=== PATIENT | male | born 1970 | race Caucasian/White ===

== ENCOUNTER 2017-05-01 08:47 | Emergency (ER) | payer SELFPAY ==
[~2017-05-01] VITALS: Ht 188 cm; Wt 77.1 kg
[~2017-05-01 08:47] MED LIST: ENAL2.5T PO; HYDR-1231 PO; IBUP800T26 PO; LISI10TA2 PO; LISI1TAB8 PO; NO HOME MEDS; OMEP20CA12 PO; ONDA-42 SL; SULF-222 PO
--- OUTSIDE RECORDS SUMMARY | 2017-05-01 08:52 | XMS REPORT ---
Author LI Self [facility] [place] eClinicalWorks Address Unknown Phone Unavailable Care Team Providers Care Distribution Clerk Name Role Phone LI ASTORGA CP Unavailable Allergies, Adverse Reactions, Alerts Substance Reaction Event Type N.K.D.A. Info Not Available Non Drug Allergy Problems Problem Type Condition Code Onset Dates Condition Status Problem DTAP TEST V06.1 Active Problem Onychia and paronychia of finger 681.02 Active Problem Unspecified essential hypertension 401.9 Active Problem Malaise R53.81 Active Problem Nocturia R35.1 Active Problem Hypertension I10 Active Problem Blood in stool 578.1 Active Problem Insomnia, unspecified 780.52 Active Problem Back pain M54.9 Active Problem Environmental allergies V15.09 Active Assessment Back pain M54.9 Active Assessment Nocturia R35.1 Active Problem Unspecified tinnitus 388.30 Active Problem Essential hypertension, benign 401.1 Active Assessment Malaise R53.81 Active Problem Unspecified urinary incontinence 788.30 Active Assessment Hypertension I10 Active Problem Acute upper respiratory infections of unspecified site 465.9 Active Medications Medication Code System Code Instructions Start Date End Date Status Dosage Ibuprofen [facility] [address]-22 800 MG Orally Three times a day as needed Oct 15, 2015 Nov 14, 2015 1 tablet Lisinopril-Hydrochlorothiazide [facility] [address]-37 20-12.5 MG Orally Once a day Oct 31, 2014 1 tablet Flomax [facility] [address]-02 0.4 MG Orally Once a day Oct 15, 2015 Nov 14, 2015 1 capsule 30 minutes after the same meal each day Tizanidine HCl [facility] [address]-45 4 MG Orally at hs prn back pspasm Oct 15, 2015 1 tablet as needed Procedures Procedure Coding System Code Date VENIPUNCT, ROUTINE* CPT-4 01400 Oct 15, 2015 COMPREHEN METABOLIC PANEL CPT-4 72755 Oct 15, 2015 LIPID PANEL CPT-4 02420 Oct 15, 2015 COMPLETE CBC W/AUTO DIFF WBC CPT-4 60425 Oct 15, 2015 THER/PROPH/DIAG INJ, SC/IM CPT-4 13225 Oct 15, 2015 DEPO MEDROL 40 MG/ML CPT-4 J1030 Oct 15, 2015 DEXAMETHASONE 4MG/ML (PER 1 MG) CPT-4 J1100 Oct 15, 2015 X-RAY EXAM OF LOWER SPINE CPT-4 32162 Oct 15, 2015 ASSAY OF PSA, TOTAL CPT-4 38515 Oct 15, 2015 Office Visit, Est Pt., Level 4 CPT-4 61059 Oct 15, 2015 URINALYSIS, AUTO, W/O SCOPE CPT-4 70574 Oct 15, 2015 Vital Signs Date/Time: Oct 15, 2015 Temperature 98.0 F Weight 178.3 lbs Height 74 in BMI 22.89 Index Blood Pressure Diastolic 80 mmHg Blood Pressure Systolic 124 mmHg Cardiac Monitoring Heart Rate 84 bpm Results Name Result Date Reference Range Unit Abnormality Flag CBC ----Lymphs 30 80865194 % ----Neutrophils 59 30887162 % ----Baso (Absolute) 0.0 59731886 0.0-0.2 x10E3/uL ----Hemoglobin 14.1 67885501 12.6-17.7 g/dL ----Eos (Absolute) 0.0 87369574 0.0-0.4 x10E3/uL ----Hematocrit 41.9 24585275 37.5-51.0 % ----Monocytes(Absolute) 0.4 41044404 0.1-0.9 x10E3/uL ----MCV 89 93682729 79-97 fL ----Lymphs (Absolute) 1.2 86936148 0.7-3.1 x10E3/uL ----MCH 29.8 92412307 26.6-33.0 pg ----Neutrophils (Absolute) 2.4 26278337 1.4-7.0 x10E3/uL ----MCHC 33.7 53451088 31.5-35.7 g/dL ----Immature Granulocytes 0 72610937 % ----Basos 1 71530348 % ----RDW 13.9 51370776 12.3-15.4 % ----Immature Grans (Abs) 0.0 95330036 0.0-0.1 x10E3/uL ----WBC 4.0 42694425 3.4-10.8 x10E3/uL ----Platelets 241 86397467 150-379 x10E3/uL ----Eos 1 66682810 % ----RBC 4.73 17482079 4.14-5.80 x10E6/uL ----Monocytes 9 26541580 % PSA ----Prostate Specific Ag, Serum 0.5 88987992 0.0-4.0 ng/mL UA LONG DIP (IN HOUSE) ----SCOOBY negative 20151015 ----NIT negative 20151015 ----SG 1.010 20151015 ----KET negative 20151015 ----BRANDON negative 20151015 ----GLU negative 20151015 ----Odor no 20151015 ----pH 7.0 20151015 ----BLO negative 20151015 ----URO 0.2 20151015 ----Protein negative 20151015 ----Lot # [id number] ----Exp date [id number] ----Clarity clear 20151015 ----Color yellow 20151015 ROUTINE VENIPUNCTURE LIPID PANEL ----LDL Cholesterol Calc 121 01259464 0-99 mg/dL H ----VLDL Cholesterol Avinash 15 81446432 5-40 mg/dL ----HDL Cholesterol 56 46926419 >39 mg/dL ----Triglycerides 74 30596623 0-149 mg/dL ----Cholesterol, Total 192 96696254 100-199 mg/dL CMP ----Creatinine, Serum 0.79 24811280 0.76-1.27 mg/dL ----BUN 10 25093871 6-24 mg/dL ----eGFR If Africn Am 124 43934659 >59 mL/min/1.73 ----eGFR If NonAfricn Am 108 27964084 >59 mL/min/1.73 ----Sodium, Serum 136 24638848 134-144 mmol/L ----BUN/Creatinine Ratio 13 20151015 9-20 ----Chloride, Serum 96 24087980 97-108 mmol/L L ----Potassium, Serum 4.3 20151015 3.5-5.2 mmol/L ----Carbon Dioxide, Total 30 20151015 18-29 mmol/L H ----Protein, Total, Serum 6.4 20151015 6.0-8.5 g/dL ----Calcium, Serum 9.1 20151015 8.7-10.2 mg/dL ----Globulin, Total 2.0 20151015 1.5-4.5 g/dL ----Albumin, Serum 4.4 20151015 3.5-5.5 g/dL ----Bilirubin, Total 0.3 20151015 0.0-1.2 mg/dL ----Glucose, Serum 85 20151015 65-99 mg/dL ----A/G Ratio 2.2 20151015 1.1-2.5 ----ALT (SGPT) 22 20151015 0-44 IU/L ----Alkaline Phosphatase, S 60 20151015 39-117 IU/L ----AST (SGOT) 27 20151015 0-40 IU/L Summary Purpose eClinicalWorks Submission
--- OUTSIDE RECORDS SUMMARY | 2017-05-01 08:52 | XMS REPORT | Continuity of Care Document ---
Author Author [facility] Organization [facility] Address Unknown Phone Unavailable Allergies Active Description Code Type Severity Reaction Onset Reported/Identified Relationship to Patient Clinical Status Yes No Known Drug Allergies [id number] Drug Allergy Unknown N/ A 03/28/2013 Medications Problems Date Dx Coded Attending Type Code Diagnosis Diagnosed By 05/17/2008 719.46 PAIN IN JOINT INVOLVING LOWER LEG 05/17/2008 ANIKET LUCIO DO 719.46 PAIN IN JOINT INVOLVING LOWER LEG 05/17/2008 ANIKET LUCIO DO 719.46 PAIN IN JOINT INVOLVING LOWER LEG 05/17/2008 719.46 PAIN IN JOINT INVOLVING LOWER LEG 05/17/2008 PARVEEN SMITH MD 719.46 PAIN IN JOINT INVOLVING LOWER LEG 05/17/2008 MEGAN MAYES APRN R 719.46 PAIN IN JOINT INVOLVING LOWER LEG 05/17/2008 MEGAN MAYES APRN R 719.46 PAIN IN JOINT INVOLVING LOWER LEG 05/17/2008 MEGAN MAYES APRN R 719.46 PAIN IN JOINT INVOLVING LOWER LEG 05/24/2008 719.41 PAIN IN JOINT INVOLVING SHOULDER REGION 05/24/2008 ANIKET LUCIO DO 719.41 PAIN IN JOINT INVOLVING SHOULDER REGION 05/24/2008 ANIKET LUCIO DO 719.41 PAIN IN JOINT INVOLVING SHOULDER REGION 05/24/2008 719.41 PAIN IN JOINT INVOLVING SHOULDER REGION 05/24/2008 PARVEEN SMITH MD 719.41 PAIN IN JOINT INVOLVING SHOULDER REGION 05/24/2008 MEGAN MAYES APRN R 719.41 PAIN IN JOINT INVOLVING SHOULDER REGION 05/24/2008 MEGAN MAYES APRN R 719.41 PAIN IN JOINT INVOLVING SHOULDER REGION 05/24/2008 MEGAN MAYES APRN R 719.41 PAIN IN JOINT INVOLVING SHOULDER REGION 01/09/2010 034.0 PHARYNGITIS STREPTOCOCCUS, GROUP A: BETA HEMOLYTIC 01/09/2010 305.1 NICOTINE DEPENDENCE 01/09/2010 ANIKET LUCIO DO 034.0 PHARYNGITIS STREPTOCOCCUS, GROUP A: BETA HEMOLYTIC 01/09/2010 ANIKET LUCIO DO K 305.1 NICOTINE DEPENDENCE 01/09/2010 ANIKET LUCIO DO K 034.0 PHARYNGITIS STREPTOCOCCUS, GROUP A: BETA HEMOLYTIC 01/09/2010 ANIKET LUCIO DO K 305.1 NICOTINE DEPENDENCE 01/09/2010 034.0 PHARYNGITIS STREPTOCOCCUS, GROUP A: BETA HEMOLYTIC 01/09/2010 305.1 NICOTINE DEPENDENCE 01/09/2010 PARVEEN SMITH MD 034.0 PHARYNGITIS STREPTOCOCCUS, GROUP A: BETA HEMOLYTIC 01/09/2010 PARVEEN SMITH MD N 305.1 NICOTINE DEPENDENCE 01/09/2010 SUGEY PEOPLESOFT HCM DEVELOPER, MEGAN R 034.0 PHARYNGITIS STREPTOCOCCUS, GROUP A: BETA HEMOLYTIC 01/09/2010 SUGEY [employer] HCM DEVELOPER, MEGAN R 305.1 NICOTINE DEPENDENCE 01/09/2010 SUGEY [employer] HCM DEVELOPER, MEGAN R 034.0 PHARYNGITIS STREPTOCOCCUS, GROUP A: BETA HEMOLYTIC 01/09/2010 SUGEY [employer] HCM DEVELOPER, MEGAN R 305.1 NICOTINE DEPENDENCE 01/09/2010 SUGEY [employer] HCM DEVELOPER, MEGAN R 034.0 PHARYNGITIS STREPTOCOCCUS, GROUP A: BETA HEMOLYTIC 01/09/2010 SUGEY [employer] HCM DEVELOPER, MEGAN R 305.1 NICOTINE DEPENDENCE 01/21/2011 V69.2 sexually active high-risk 01/21/2011 ANIKET LUCIO DO V69.2 sexually active high-risk 01/21/2011 ANIKET LUCIO DO V69.2 sexually active high-risk 01/21/2011 V69.2 sexually active high-risk 01/21/2011 PARVEEN SMITH MD V69.2 sexually active high-risk 01/21/2011 [employer]Y [employer] HCM DEVELOPER, MEGAN R V69.2 sexually active high-risk 01/21/2011 SUGEY [employer] HCM DEVELOPER, MEGAN R V69.2 sexually active high-risk 01/21/2011 SUGEY SANTANA, MEGAN R V69.2 sexually active high-risk 04/29/2011 Ot 305.02 04/29/2011 Ot 305.1 04/29/2011 Ot 425.4 04/29/2011 Ot 786.59 04/29/2011 Ot V17.49 05/04/2011 733.6 TIETZE'S DISEASE 05/04/2011 LUCIO DO, ANIKET K 733.6 TIETZE'S DISEASE 05/04/2011 ANIKET LUCIO DO K 733.6 TIETZE'S DISEASE 05/04/2011 733.6 TIETZE'S DISEASE 05/04/2011 PARVEEN SMITH MD 733.6 TIETZE'S DISEASE 05/04/2011 SUGEY SANTANA, MEGAN R 733.6 TIETZE'S DISEASE 05/04/2011 SUGEY SANTANA, MEGAN R 733.6 TIETZE'S DISEASE 05/04/2011 SUGEY SANTANA, MEGAN R 733.6 TIETZE'S DISEASE 06/03/2012 465.9 UPPER RESPIRATORY INFECTION 06/03/2012 ANIKET LUCIO DO K 465.9 UPPER RESPIRATORY INFECTION 06/03/2012 ANIKET LUCIO DO K 465.9 UPPER RESPIRATORY INFECTION 06/03/2012 465.9 UPPER RESPIRATORY INFECTION 06/03/2012 SARAH GIBBONS, PARVEEN N 465.9 UPPER RESPIRATORY INFECTION 06/03/2012 SUGEY SANTANA, MEGAN R 465.9 UPPER RESPIRATORY INFECTION 06/03/2012 SUGEY SANTANA, MEGAN R 465.9 UPPER RESPIRATORY INFECTION 06/03/2012 SUGEY SANTANA, MEGAN R 465.9 UPPER RESPIRATORY INFECTION 11/09/2012 788.30 INCONTINENCE/ENURESIS NOS 11/09/2012 ANIKET LUCIO DO K 788.30 INCONTINENCE/ENURESIS NOS 11/09/2012 ANIKET LUCIO DO K 788.30 INCONTINENCE/ENURESIS NOS 11/09/2012 788.30 INCONTINENCE/ENURESIS NOS 11/09/2012 PARVEEN SMITH MD 788.30 INCONTINENCE/ENURESIS NOS 11/09/2012 CONCEPCIÓN MAYES APRNINA R 788.30 INCONTINENCE/ENURESIS NOS 11/09/2012 CONCEPCIÓN MAYES APRNINA R 788.30 INCONTINENCE/ENURESIS NOS 11/09/2012 MEGAN MAYES APRN R 788.30 INCONTINENCE/ENURESIS NOS 11/21/2012 ANIKET LUCIO DO 578.1 HEMATOCHEZIA 11/21/2012 ANIKET LUCIO DO 578.1 HEMATOCHEZIA 11/21/2012 578.1 HEMATOCHEZIA 11/21/2012 PARVEEN SMITH MD 578.1 HEMATOCHEZIA 11/21/2012 SUGEY [employer] HCM DEVELOPER, MEGAN R 578.1 HEMATOCHEZIA 11/21/2012 SUGEY [employer] HCM DEVELOPER, MEGAN R 578.1 HEMATOCHEZIA 11/21/2012 SUGEY [employer] HCM DEVELOPER, MEGAN R 578.1 HEMATOCHEZIA 12/14/2012 Ot 455.0 12/14/2012 Ot 455.3 12/14/2012 Ot V16.0 12/29/2012 V06.1 TDAP DX 12/29/2012 SARAH GIBBONS, PARVEEN N V06.1 TDAP DX 12/29/2012 SUGEY [employer] HCM DEVELOPER, MEGAN R V06.1 TDAP DX 12/29/2012 SUGEY [employer] HCM DEVELOPER, MEGAN R V06.1 TDAP DX 12/29/2012 SUGEY [employer] HCM DEVELOPER, MEGAN R V06.1 TDAP DX 03/29/2013 DAY GIBBONS, GEOVANNY S Ot 305.1 03/29/2013 DAY GIBBONS, GEOVANNY S Ot 780.97 03/29/2013 DAY GIBBONS, GEOVANNY S Ot 786.01 03/29/2013 DAY GIBBONS, GEOVANNY S Ot 994.8 03/29/2013 DAY GIBBONS, GEOVANNY S Ot E000.0 03/29/2013 DAY GIBBONS, GEOVANNY S Ot E016.9 03/29/2013 DAY GIBBONS, GEOVANNY S Ot E849.3 03/29/2013 DAY GIBBONS, GEOVANNY S Ot E925.8 08/24/2013 SARAH GIBBONS, PARVEEN N 681.02 ONYCHIA AND PARONYCHIA OF FINGER 08/24/2013 SUGEY SANTANA, MEGAN R 681.02 ONYCHIA AND PARONYCHIA OF FINGER 08/24/2013 SUGEY SANTANA, MEGAN R 681.02 ONYCHIA AND PARONYCHIA OF FINGER 08/24/2013 SUGEY PEOPLESO[employer] HCM DEVELOPER, MEGAN R 681.02 ONYCHIA AND PARONYCHIA OF FINGER 06/19/2014 MICHAEL GIBBONS, TRINIDAD Moreno Ot 682.9 06/19/2014 MICHAEL GIBBONS, TRINIDAD Moreno Ot 787.02 06/19/2014 MICHAEL GIBBONS, TRINIDAD Moreno Ot 789.00 10/01/2014 Ot 721.3 10/01/2014 Ot 787.60 10/01/2014 Ot V72.84 10/02/2014 MYLES GIBBONS FACC, ALI FACP CCDS Ot 305.00 10/02/2014 MYLES GIBBONS FACC, ALI FACP CCDS Ot 305.1 10/02/2014 MYLES GIBBONS FACC, ALI FACP CCDS Ot 401.9 10/02/2014 MYLES GIBBONS FACC, ALI FACP CCDS Ot 414.01 10/02/2014 MYLES GIBBONS FACC, ALI FACP CCDS Ot 427.1 10/02/2014 MYLES GIBBONS FACC, ALI FACP CCDS Ot 427.89 10/02/2014 MYLES GIBBONS FACC, ALI FACP CCDS Ot V17.49 10/02/2014 Ot 721.3 10/02/2014 Ot 787.60 10/02/2014 Ot V72.84 10/02/2014 MYLES GIBBONS FACC, ALI FACP CCDS Ot 305.00 10/02/2014 MYLES GIBBONS FACC, ALI FACP CCDS Ot 305.1 10/02/2014 MYLES GIBBONS FACC, ALI FACP CCDS Ot 401.9 10/02/2014 MYLES GIBBONS FACC, ALI FACP CCDS Ot 414.01 10/02/2014 MYLES GIBBONS FACC, ALI FACP CCDS Ot 427.1 10/02/2014 MYLES GIBBONS FACC, ALI FACP CCDS Ot 427.89 10/02/2014 MYLES GIBBONS FACC, ALI FACP CCDS Ot V17.49 10/02/2014 MYLES GIBBONS FACC, ALI FACP CCDS Ot 305.00 10/02/2014 MYLES GIBBONS FACC, ALI FACP CCDS Ot 305.1 10/02/2014 MYLES GIBBONS FACC, ALI FACP CCDS Ot 401.9 10/02/2014 MYLES GIBBONS FACC, ALI FACP CCDS Ot 414.01 10/02/2014 MYLES GIBBONS FACC, ALI FACP CCDS Ot 427.1 10/02/2014 MYLES GIBBONS FACC, ALI FACP CCDS Ot 427.89 10/02/2014 MYLES GIBBONS FACC, ALI FACP CCDS Ot V17.49 10/02/2014 MYLES GIBBONS FACC, ALI FACP CCDS Ot 305.00 10/02/2014 MYLES GIBBONS FACC, ALI FACP CCDS Ot 305.1 10/02/2014 MYLES GIBBONS FACC, ALI FACP CCDS Ot 401.9 10/02/2014 MYLES GIBBONS FACC, ALI FACP CCDS Ot 414.01 10/02/2014 MYLES GIBBONS FACC, ALI FACP CCDS Ot 427.1 10/02/2014 MYLES GIBBONS FACC, ALI FACP CCDS Ot 427.89 10/02/2014 MYLES GIBBONS FACC, ALI FACP CCDS Ot V17.49 10/02/2014 MYLES GIBBONS FACC, ALI FACP CCDS Ot 305.00 10/02/2014 MYLES GIBBONS FACC, ALI FACP CCDS Ot 305.1 10/02/2014 MYLES GIBBONS FACC, ALI FACP CCDS Ot 401.9 10/02/2014 MYLES GIBBONS FACC, ALI FACP CCDS Ot 414.01 10/02/2014 MYLES GIBBONS FACC, ALI FACP CCDS Ot 427.1 10/02/2014 MYLES GIBBONS FACC, ALI FACP CCDS Ot 427.89 10/02/2014 MYLES GIBBONS FACC, ALI FACP CCDS Ot E849.7 10/02/2014 MYLES GIBBONS FACC, ALI FACP CCDS Ot E935.2 10/02/2014 MYLES GIBBONS FACC, ALI FACP CCDS Ot E941.2 10/02/2014 MYLES GIBBONS FAC, ALI FACP CCDS Ot V04.81 10/02/2014 MYLES GIBBONS FAC, ALI FACP CCDS Ot V17.49 10/08/2014 SHANIA MCWILLIAMS DO Ot 998.12 10/16/2014 MEGAN MAYES APRN R 388.30 TINNITUS UNSPECIFIED 10/16/2014 MEGAN MAYES APRN R 401.1 BENIGN ESSENTIAL HYPERTENSION 10/16/2014 CONCEPCIÓN MAYES APRNINA R 388.30 TINNITUS UNSPECIFIED 10/16/2014 CONCEPCIÓN MAYES APRNINA R 401.1 BENIGN ESSENTIAL HYPERTENSION 10/16/2014 MEGAN MAYES APRN R 388.30 TINNITUS UNSPECIFIED 10/16/2014 MEGAN MAYES APRN R 401.1 BENIGN ESSENTIAL HYPERTENSION 10/24/2014 MEGAN MAYES APRN R 780.52 INSOMNIA UNSPECIFIED 10/24/2014 CONCEPCIÓN MAYES APRNINA R 780.52 INSOMNIA UNSPECIFIED 10/31/2014 MEGAN MAYES APRN R 401.9 UNSPECIFIED ESSENTIAL HYPERTENSION 11/14/2014 Ot 721.3 11/14/2014 Ot 787.60 11/14/2014 Ot V72.84 11/14/2014 BECCA BUENO MD, FACC, FACP CCDS Ot 401.9 11/14/2014 Ot 721.3 11/14/2014 Ot 787.60 11/27/2014 Ot 721.3 11/27/2014 Ot 787.60 11/27/2014 BECCA BUENO MD, FACC, FACP CCDS Ot 401.9 Procedures Code [place] [address] HEMOCCULT 2012 75319 MRI SPINE (LUMBAR) W & W/O CONTRAST 11/09/2012 Alfredo Vergara 11/09/2012 57221 ROUTINE VENIPUNCTURE 12/15/2012 22475 CBC 12/15/2012 95105 CMP 12/15/2012 46138 VIT B 12 2012 00880 TSH 12/15/2012 37851 CERUMEN REMOVAL 10/24/2014 Results Encounters ACCT No. Visit Date/Time Discharge Status Pt. Type Provider Facility Loc./Unit Complaint [id number] 10/15/2014 15:02:00 2013 23:59:59 CLS Outpatient BECCA BUENO MD, FACC, FACP CCDS [facility] LAB [id number] 10/08/2014 19:37:00 2013 21:16:00 DIS Emergency SHANIA MCWILLIAMS DO [facility] ER [id number] 10/01/2014 10:39:00 2013 15:18:00 DIS Inpatient BECCA BUENO MD, FACC, FACP CCDS [facility] [id number] 06/19/2014 12:43:00 2013 16:28:00 DIS Emergency TRINIDAD RODRIGUEZ MD [facility] ER [id number] 03/28/2013 14:11:00 2012 11:48:00 DIS Inpatient GEOVANNY BERNSTEIN MD [facility] ICU [id number] 12/14/2012 13:00:00 Document Registration [id number] 12/08/2012 07:43:00 Document Registration [id number] 11/10/2012 09:39:00 Document Registration [id number] 04/28/2011 17:10:00 Document Registration
--- OUTSIDE RECORDS SUMMARY | 2017-05-01 08:52 | XMS REPORT ---
Author LI Self [facility] eClinicalWorks Address Unknown Phone Unavailable Care Team Providers Care Band Saw Operator Cake Cutting Name Role Phone LI ASTORGA CP Unavailable Allergies, Adverse Reactions, Alerts Substance Reaction Event Type N.K.D.A. Info Not Available Non Drug Allergy Problems Problem Type Condition Code Onset Dates Condition Status Problem Unspecified essential hypertension 401.9 Active Problem Insomnia, unspecified 780.52 Active Problem Onychia and paronychia of finger 681.02 Active Problem Hypertension I10 Active Problem Malaise R53.81 Active Problem Incontinence of feces R15.9 Active Problem Environmental allergies V15.09 Active Problem Blood in stool 578.1 Active Problem Nocturia R35.1 Active Problem Back pain M54.9 Active Assessment Malaise R53.81 Active Assessment Back pain M54.9 Active Assessment Incontinence of feces R15.9 Active Assessment Nocturia R35.1 Active Problem Essential hypertension, benign 401.1 Active Problem Unspecified urinary incontinence 788.30 Active Assessment Hypertension I10 Active Problem Acute upper respiratory infections of unspecified site 465.9 Active Problem Unspecified tinnitus 388.30 Active Problem DTAP TEST V06.1 Active Medications Medication Code System Code Instructions Start Date End Date Status Dosage Lisinopril-Hydrochlorothiazide [facility] [address]-69 20-12.5 MG Orally Once a day Oct 31, 2014 1 tablet Ibuprofen [facility] [address]-46 800 MG Orally Three times a day as needed Oct 15, 2015 Nov 14, 2015 1 tablet Tizanidine HCl [facility] [address]-20 4 MG Orally at hs prn back pspasm Oct 15, 2015 1 tablet as needed Benefiber [facility] [address]-90 1 tablet Orally Once a day Oct 28, 2015 as directed Procedures Procedure Coding System Code Date Office Visit, Est Pt., Level 4 CPT-4 77410 Oct 28, 2015 Vital Signs Date/Time: Oct 28, 2015 Temperature 98.9 F Weight 174.2 lbs Height 74 in BMI 22.36 Index Blood Pressure Diastolic 70 mmHg Blood Pressure Systolic 132 mmHg Cardiac Monitoring Heart Rate 88 bpm Results No Known Results Summary Purpose eClinicalWorks Submission
[2017-05-01 09:07] LABS: BASOPHILS % (AUTO) 0 % (0-10); EOSINOPHILS # (AUTO) 0.1 10^3/uL (0.0-0.3); EOSINOPHILS % (AUTO) 1 % (0-10); LYMPHOCYTES % (AUTO) 40 % (12-44); MEAN CORPUSCULAR HEMOGLOBIN 31 PG (25-34); MEAN CORPUSCULAR HGB CONC 35 G/DL (32-36); MEAN CORPUSCULAR VOLUME 87 FL (80-99); MEAN PLATELET VOLUME 10.2 FL (7.4-10.4); MONOCYTES # (AUTO) 0.9 X 10^3 (0.0-1.0); MONOCYTES % (AUTO) 9 % (0-12); NEUTROPHILS # (AUTO) 4.9 X 10^3 (1.8-7.8); NEUTROPHILS % (AUTO) 50 % (42-75); PLATELET COUNT 282 10^3/uL (130-400); RED BLOOD COUNT 5.14 10^6/uL (4.35-5.85); RED CELL DISTRIBUTION WIDTH 13.6 % (10.0-14.5); WHITE BLOOD COUNT 9.9 10^3/uL (4.3-11.0)
--- NOTE | 2017-05-01 09:13 | Diagnostic Imaging Report ---
INDICATION: Chest pain. COMPARISON: 10/01/2014. FINDINGS: Single view of the chest demonstrates clear lungs bilaterally. The heart is normal. No pneumothorax is seen. Osseous structures are age appropriate. IMPRESSION: Negative chest. Dictated by: Dictated on workstation # [id number]
--- NOTE | 2017-05-01 09:16 | ED Cardiac General ---
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 The patient has had similar episodes of chest pain in the past leading to a normal cardiac catheterization in 2013 here at [facility] with Dr. Frost. Patient smokes. The patient drinks. Patient denies drugs. Patient was given nitroglycerin 2 in route with relief of his sharp 10/10 chest pain. Patient denied associated shortness of breath, diaphoresis, nausea or vomiting. Patient's past medical history was essentially noncontributory other than hypertension for which he takes lisinopril. Allergies and Home Medications Allergies Coded Allergies: No Known Drug Allergies (Verified , 03/28/13) Home Medications Lisinopril 10 Mg Tablet, 10 MG PO DAILY, #30 Ref 5 Prescribed by: BECCA FROST on 10/02/14 1430 Lisinopril/Hydrochlorothiazide 1 Tab Tablet, 1 TAB PO DAILY, #15 Prescribed by: SHANIA MCWILLIAMS on 10/08/14 2105 Review of Systems Constitutional: No chills, No fever EENTM: No Blurred Vision Respiratory: Denies Cough, Denies Shortness of Air Cardiovascular: See HPI, Chest Pain Gastrointestinal: Denies Abdominal Pain, Denies Diarrhea, Denies Nausea Genitourinary: Denies Drainage, Denies Frequency, Denies Flank Pain Musculoskeletal: No back pain Skin: No change in color, No rash Psychiatric/Neurological: No Symptoms Reported Endocrine: No Symptoms Reported Hematologic/Lymphatic: No Symptoms Reported Past Ctxeetm-Fmayhe-Ybwerd Hx Immunizations Up To Date Tetanus Booster (TDap): Less than 5yrs Date of Influenza Vaccine: Oct 02, 2014 Seasonal Allergies Seasonal Allergies: No Surgeries HX Surgeries: Yes (RECTAL CYST, HEART CATH) Respiratory Hx Respiratory Disorders: No Cardiovascular Hx Cardiac Disorders: Yes ( HEART CATH NOT TAKING B/P MEDS STOPPED ON OWN) Neurological Hx Neurological Disorders: No Reproductive System Hx Reproductive Disorders: No Sexually Transmitted Disease: No HIV/AIDS: No Genitourinary Hx Genitourinary Disorders: No Gastrointestinal Hx Gastrointestinal Disorders: No Musculoskeletal Hx Musculoskeletal Disorders: Yes (BULGING DISK) Endocrine Hx Endocrine Disorders: No HEENT HX ENT Disorders: No (WEARS READING GLASSES) Hearing Impairment: Denies Cancer Hx Cancer: No Psychosocial Hx Psychiatric Problems: No Integumentary HX Skin/Integumentary Disorder: No Blood Transfusions Hx Blood Disorders: No Adverse Reaction to a Blood Tr: No Reviewed Nursing Assessment Reviewed/Agree w Nursing PMH: Yes Family Medical History Significant Family History: Heart Disease, Cancer Family Medial History: FHx: esophageal cancer FHx: lung cancer Physical Exam Vital Signs Vital Sign - Last 12Hours Capillary Refill : General Appearance: WD/WN, Mild Distress HEENT: Normal ENT Inspection Neck: Normal Inspection Respiratory: Chest Non Tender, Lungs Clear, Normal Breath Sounds Cardiovascular: Regular Rate, Rhythm, No Murmur Gastrointestinal: Normal Bowel Sounds, No Organomegaly, Soft Extremity: Normal Inspection, Normal Range of Motion Neurologic/Psychiatric: Alert, Oriented x3, No Motor/Sensory Deficits, Normal Mood/Affect Skin: Normal Color, Warm/Dry Progress/Results/Core Measures Results/Orders Lab Results Laboratory Tests Test 05/01/17 08:48 Range/Units White Blood Count 9.9 4.3-11.0 10^3/uL Red Blood Count 5.14 4.35-5.85 10^6/uL Hemoglobin 15.7 13.3-17.7 G/DL Hematocrit 45 40-54 % Mean Corpuscular Volume 87 80-99 FL Mean Corpuscular Hemoglobin 31 25-34 PG Mean Corpuscular Hemoglobin Concent 35 32-36 G/DL Red Cell Distribution Width 13.6 10.0-14.5 % Platelet Count 282 130-400 10^3/uL Mean Platelet Volume 10.2 7.4-10.4 FL Neutrophils (%) (Auto) 50 42-75 % Lymphocytes (%) (Auto) 40 12-44 % Monocytes (%) (Auto) 9 0-12 % Eosinophils (%) (Auto) 1 0-10 % Basophils (%) (Auto) 0 0-10 % Neutrophils # (Auto) 4.9 1.8-7.8 X 10^3 Lymphocytes # (Auto) 4.0 1.0-4.0 X 10^3 Monocytes # (Auto) 0.9 0.0-1.0 X 10^3 Eosinophils # (Auto) 0.1 0.0-0.3 10^3/uL Basophils # (Auto) 0.0 0.0-0.1 10^3/uL Prothrombin Time 11.6 L 12.2-14.7 SEC INR Comment 0.9 0.8-1.4 Activated Partial Thromboplast Time 24 24-35 SEC D-Dimer 0.57 H 0.00-0.49 UG/ML Sodium Level 136 135-145 MMOL/L Potassium Level 3.8 3.6-5.0 MMOL/L Chloride Level 98 98-107 MMOL/L Carbon Dioxide Level 24 21-32 MMOL/L Anion Gap 14 5-14 MMOL/L Blood Urea Nitrogen 12 7-18 MG/DL Creatinine 0.89 0.60-1.30 MG/DL Estimat Glomerular Filtration Rate > 60 BUN/Creatinine Ratio 13 Glucose Level 111 H 70-105 MG/DL Calcium Level 9.7 8.5-10.1 MG/DL Magnesium Level 2.2 1.8-2.4 MG/DL Total Bilirubin 0.7 0.1-1.0 MG/DL Aspartate Amino Transf (AST/SGOT) 27 5-34 U/L Alanine Aminotransferase (ALT/SGPT) 22 0-55 U/L Alkaline Phosphatase 83 40-136 U/L Myoglobin 72.9 10.0-92.0 NG/ML Troponin I < 0.30 <0.30 NG/ML B-Type Natriuretic Peptide 27.7 <100.0 PG/ML Total Protein 8.0 6.4-8.2 GM/DL Albumin 4.7 H 3.2-4.5 GM/DL My Orders Orders - MILLY, ANIBAL Tucker MD Cbc With Automated Diff (05/01/17 08:54) Magnesium (05/01/17 08:54) Chest 1 View, Ap/Pa Only (05/01/17 08:54) Ekg Tracing (05/01/17 08:54) Cardiac Profile 1 (05/01/17 08:54) Comprehensive Metabolic Panel (05/01/17 08:54) Myoglobin Serum (05/01/17 08:54) Protime With Inr (05/01/17 08:54) Partial Thromboplastin Time (05/01/17 08:54) O2 (05/01/17 08:54) Monitor-Rhythm Ecg Trace Only (05/01/17 08:54) Lipid Panel (05/02/17 06:00) Saline Lock/Iv-Start (05/01/17 08:54) BNP (05/01/17 08:54) Fibrin Degradation Products (05/01/17 08:54) Vital Signs/I&O Vital Sign - Last 12Hours 05/01/17 05/01/17 08:50 08:50 Temp 97.9 Pulse 83 Resp 12 B/P (MAP) 103/85 Pulse Ox 97 O2 Delivery Room Air Room Air Progress Note : Time: 09:54 Progress Note The patient remained pain-free while in the emergency department. The patient originally demonstrated a sinus tachycardia on his arrival. His EKG demonstrated nonspecific ST changes over the inferior leads. The patient's senior clinician time of discharge demonstrated normal sinus rhythm. The patient 's laboratory evaluation included a normal troponin. The patient was advised to stay for further telemetry monitoring and serial EKGs and troponins. The patient had a significant bradycardia according the paramedics in the field. It was recommended the patient have this further evaluated as well. The patient, who in my opinion demonstrated competency, declined further evaluation. He signed the AMA form with the clear understanding that he can return at any time. He was agreeable close follow-up with his [facility] physician on Wednesday. I wrote a prescription for nitroglycerin for the patient for further chest pain if needed. I advised patient return any time if we can offer further assistance. Departure Impression Impression: Primary Impression: Chest pain Qualified Codes: I20.0 - Unstable angina Disposition: Condition: Against Medical Advice Departure-Patient Inst. Referrals: [facility] (PCP/Family) Primary Care Physician Patient Instructions: Chest Pain (DC) Add. Discharge Instructions: Nitroglycerin should the chest pain recur. Return to the emergency department if chest pain recurs. Close follow-up with [facility] on Wednesday. Rest at home this . All discharge instructions reviewed with patient and/or family. Voiced understanding. ANIBAL ATKINS MD May 01, 2017 09:16
[2017-05-01 09:20] LABS: INR 0.9 (0.8-1.4); PROTHROMBIN TIME PATIENT 11.6 SEC (12.2-14.7)
[2017-05-01 09:26] LABS: ALANINE AMINOTRANSFERASE 22 U/L (0-55); ALBUMIN 4.7 GM/DL (3.2-4.5); ANION GAP 14 MMOL/L (5-14); ASPARTATE AMINO TRANSFERASE 27 U/L (5-34); BILIRUBIN,TOTAL 0.7 MG/DL (0.1-1.0); BLOOD UREA NITROGEN 12 MG/DL (7-18); BUN/CREATININE RATIO 13; CALCIUM 9.7 MG/DL (8.5-10.1); CARBON DIOXIDE 24 MMOL/L (21-32); CHLORIDE 98 MMOL/L (98-107); CREATININE SERUM 0.89 MG/DL (0.60-1.30); GFR ESTIMATED > 60; GLUCOSE 111 MG/DL (70-105); MAGNESIUM 2.2 MG/DL (1.8-2.4); POTASSIUM 3.8 MMOL/L (3.6-5.0); SODIUM 136 MMOL/L (135-145)
[2017-05-01 09:34] LABS: MYOGLOBIN SERUM 72.9 NG/ML (10.0-92.0)
[2017-05-01] MEDS ORDERED: RX-NITROGLYCERIN 0.4 MG TAB BTL 25'S SL PRN (10:15)
[2017-05-01 10:17] VITALS: BP 103/73
== END 2017-05-01 10:19 | disposition left against medical advice (07) ==
LOC: EDUNIT# 08:47 → ER 08:48
DX: R07.9 Chest pain, unspecified (principal); I10 Essential (primary) hypertension; Z82.49 Family history of ischemic heart disease and other diseases of the circulatory system
CPT/HCPCS: 36415; 71010; 80053; 83735; 83874; 83880; 84484; 85025; 85379; 85610; 85730; 93041

== ENCOUNTER → 2017-06-08 | Outpatient (CLI) | payer OTHER | LOC: CARD 10:30 | PROVIDERS: ATTEND Nurse Practitioner Family | DX: R07.89 Other chest pain (principal) | CPT/HCPCS: 93306 ==

== ENCOUNTER → 2017-06-10 | Outpatient (CLI) | payer OTHER ==
[~2017-06-10] MED LIST changes: +CATHETER FLUSH 10 ML SYR IV PRN; +REGADENOSON 0.4 MG/5 ML SYR (LEXISCAN) IV ONE; +TAMS0.4C98 PO
[2017-06-10 09:23] VITALS: BP 132/80
[2017-06-10 09:31] VITALS: BP 119/85
--- NOTE | 2017-06-11 12:15 | STRESS TEST ---
DATE OF SERVICE: 06/10/2017 POST REGADENOSON TECHNETIUM 99M TETROFOSMIN SPECT CT IMAGING CLINICAL DIAGNOSIS: Chest discomfort. ORDERING PHYSICIAN: Dulce Canales APRN OTHER PHYSICIAN: [facility]. Baseline images were carried out after injection of 9.711 mCi technetium 99m Tetrofosmin. This was followed by 0.4 mg regadenoson and 29.1 mCi of technetium 99m Tetrofosmin for stress imaging. The electrocardiogram showed sinus rhythm at baseline and it did not change significantly with the regadenoson infusion. The patient had mild shortness of breath with the regadenoson infusion which resolved in a few minutes. Overall, he tolerated the procedure well. Review of images at rest and following stress does not indicate any significant perfusion defects consistent with any significant myocardial ischemia or infarction. Gated images show normal global left ventricular systolic function with normal regional wall motion. Left ventricular ejection fraction is calculated to be 46%, but subjectively appears somewhat higher than that. Left ventricular end diastolic volume is 133 mL. TID is absent (1.11). CONCLUSIONS: 1. No evidence of any significant myocardial ischemia or infarction on this study. 2. Mild to moderate cardiomegaly. 3. No regional wall motion abnormality is seen. 4. Left ventricular ejection fraction is calculated to be 46% but appears to be subjectively somewhat higher than that. Job ID: [id number] DocumentID: [id number] Dictated Date: 06/11/2017 09:27:57 Oven Baker Date: 06/11/2017 10:28:28 Dictated By: BECCA BUENO MD, MA, FACP, FACC,
== END ==
LOC: CARD 07:08
PROVIDERS: ATTEND Nurse Practitioner Family
DX: R07.89 Other chest pain (principal)
CPT/HCPCS: 78452; 93017

== ENCOUNTER → 2017-06-23 | Outpatient (CLI) | payer OTHER ==
[~2017-06-23] MED LIST changes: +IOHEXOL 350 MG/ML 150 ML (OMNIPAQUE 350) VIAL IV ONE; +NS 100 ML (IVPB) BAG IV ONE; -REGADENOSON 0.4 MG/5 ML SYR (LEXISCAN) IV ONE
[2017-06-23 11:12] LABS: ANION GAP 12 MMOL/L (5-14); BLOOD UREA NITROGEN 11 MG/DL (7-18); BUN/CREATININE RATIO 13; CALCIUM 9.4 MG/DL (8.5-10.1); CARBON DIOXIDE 26 MMOL/L (21-32); CHLORIDE 103 MMOL/L (98-107); CREATININE SERUM 0.85 MG/DL (0.60-1.30); GFR ESTIMATED > 60; GLUCOSE 82 MG/DL (70-105); POTASSIUM 3.7 MMOL/L (3.6-5.0); SODIUM 141 MMOL/L (135-145)
--- NOTE | 2017-06-23 13:45 | Diagnostic Imaging Report ---
PROCEDURE: CT angiography of the chest with contrast. TECHNIQUE: Multiple contiguous axial images were obtained through the chest after uneventful bolus administration of intravenous contrast. Reconstructed CTA MIP acquisitions were also performed. INDICATION: Evaluate aortic root. FINDINGS: The previous CTA chest exam performed on 10/01/2014 noted mild ectasia of the aortic root. On the coronal images of the prior exam, the aortic root was estimated to be 4.5 cm. On this study, the aortic root at the same level measures 4.3 cm. The ascending aorta is not abnormally dilated measuring 3.7 x 3.7 cm in maximum AP and transverse diameters. The descending thoracic aorta is also normal in caliber. There is no sign of a dissection of the aorta. There is no defect within the pulmonary arteries to indicate a pulmonary embolus. There are emphysematous changes involving both lungs, but there is no sign of failure, pneumonia, or of a pleural effusion to indicate an acute abnormality. However, in the interval since the previous study, a region of abnormal density with both linear and nodular components has developed in the left lung base near the diaphragm. This area measures approximately 1.3 x 2.2 cm. This finding may be secondary to scar formation or chronic atelectasis. It would be less likely that this is secondary to a neoplastic mass. However, in the interval since the prior study, a 1.0 x 2.2 cm area of diminished density has developed between the left pulmonary artery and the main pulmonary artery. This could be due to adenopathy. It would be unlikely that this is neoplastic in nature as well. Even so, I would recommend that a short-term (4-6 week) followup CT chest exam be performed for further study. There is no other mediastinal or hilar adenopathy noted. The thyroid gland is unremarkable. The sections through the upper abdomen fail to show any sign of an acute abnormality. The bone windows are unremarkable for a fracture or for a destructive lesion. IMPRESSION: 1. The aortic root is slightly dilated but does not appear to have changed adversely since the prior exam. There is still no evidence for an acute abnormality of the aorta. 2. There are emphysematous changes involving both lungs, but there is no evidence for an acute cardiopulmonary abnormality. 3. The nodular/linear parenchymal density in the left lung base is of uncertain etiology but is more likely due to chronic atelectasis and/or scar formation than to neoplasm. However, there is a new area of apparent adenopathy in the left hilar region. A short-term (4-6 week) followup CT chest exam would be recommended for further evaluation of these findings. Dictated by: Dictated on workstation # [id number]
== END ==
LOC: RAD 10:42
PROVIDERS: ATTEND Nurse Practitioner Family
DX: I77.89 Other specified disorders of arteries and arterioles (principal); J43.9 Emphysema, unspecified; R59.0 Localized enlarged lymph nodes; R91.8 Other nonspecific abnormal finding of lung field
CPT/HCPCS: 36415; 71275; 80048

== ENCOUNTER → 2017-07-13 | Outpatient (CLI) | payer OTHER ==
[~2017-07-13] MED LIST changes: -CATHETER FLUSH 10 ML SYR IV PRN; -IOHEXOL 350 MG/ML 150 ML (OMNIPAQUE 350) VIAL IV ONE; -NS 100 ML (IVPB) BAG IV ONE; -TAMS0.4C98 PO
== END ==
LOC: RAD 12:26
PROVIDERS: ATTEND Nurse Practitioner Family
DX: I73.9 Peripheral vascular disease, unspecified (principal)
CPT/HCPCS: 93923

== ENCOUNTER → 2017-07-28 | Outpatient (CLI) | payer OTHER ==
[~2017-07-28] MED LIST changes: +RT-ALBUTEROL SULF 2.5 MG/3 ML PRE-MIX VIAL IH ONE
== END ==
LOC: RT 11:38
PROVIDERS: ATTEND Nurse Practitioner Family
DX: J44.9 Chronic obstructive pulmonary disease, unspecified (principal); R06.00 Dyspnea, unspecified; F17.200 Nicotine dependence, unspecified, uncomplicated; R91.8 Other nonspecific abnormal finding of lung field; J30.9 Allergic rhinitis, unspecified
CPT/HCPCS: 94060; 94640; 94726; 94729

== ENCOUNTER → 2017-08-09 | Outpatient (CLI) | payer OTHER ==
[~2017-08-09] MED LIST changes: +IOHEXOL 350 MG/ML 100 ML (OMNIPAQUE 350) VIAL IV ONE; +NS 100 ML (IVPB) BAG IV ONE; -RT-ALBUTEROL SULF 2.5 MG/3 ML PRE-MIX VIAL IH ONE
--- NOTE | 2017-08-09 10:47 | Diagnostic Imaging Report ---
PROCEDURE: CT chest with contrast only. TECHNIQUE: Multiple contiguous axial images were obtained through the chest after administration of intravenous contrast. INDICATION: Followup pulmonary nodule. COMPARISON: CT chest of 06/23/2017. FINDINGS: Lungs and airway: Paraseptal and centrilobular emphysema in the lung apices is unchanged. No new pulmonary mass, nodule or consolidation. The previously noted focus of mixed nodular and linear consolidation left lower lobe along the hemidiaphragm is now a thin linear focus. The nodular component has completely resolved. Pleura: No pleural effusion or pneumothorax. Heart and mediastinum: Thyroid is normal. No supraclavicular or axillary lymphadenopathy. No intrathoracic lymphadenopathy. Heart is normal in size without pericardial effusion. Mild ectasia of the ascending aorta measuring 3.7 cm is unchanged. No pericardial effusion. Upper abdomen: No acute or concerning abnormality in the upper abdomen. Musculoskeletal: Normal regional skeleton. IMPRESSION: 1. No intrathoracic neoplasm. 2. Left lower lobe mixed nodular and linear opacities now completely linear in configuration and is benign atelectasis. Dictated by: Dictated on workstation # [id number]
== END ==
LOC: RAD 09:59
PROVIDERS: ATTEND Nurse Practitioner Family
DX: J98.11 Atelectasis (principal)
CPT/HCPCS: 71260

== ENCOUNTER 2017-08-18 15:00 | Outpatient (CLI) | payer OTHER ==
[~2017-08-18] VITALS: Ht 188 cm; Wt 77.1 kg
[~2017-08-18 15:00] MED LIST changes: -IOHEXOL 350 MG/ML 100 ML (OMNIPAQUE 350) VIAL IV ONE; -NS 100 ML (IVPB) BAG IV ONE
[2017-08-18] MEDS ORDERED: TAMS0.4C98 PO (15:28)
[2017-08-18] MEDS ORDERED: LISI10TA2 PO (15:28)
== END 2017-08-18 15:32 ==
LOC: PREOP 15:00
PROVIDERS: ATTEND Surgery
DX: Z01.818 Encounter for other preprocedural examination (principal); R19.7 Diarrhea, unspecified

== ENCOUNTER 2018-08-11 12:13 | Emergency (ER) | payer SELFPAY ==
[~2018-08-11] VITALS: Ht 188 cm; Wt 77.1 kg
[~2018-08-11 12:13] MED LIST changes: +TAMS0.4C98 PO
[2018-08-11] MEDS ORDERED: fentaNYL INJECTION 100 MCG/2 ML AMP ONE (12:25)
[2018-08-11] MEDS ORDERED: IOHEXOL 350 MG/ML 100 ML (OMNIPAQUE 350) VIAL IV ONE (12:30)
[2018-08-11] MEDS ORDERED: NS 250 ML (IVPB) BAG IV ONE (12:30)
[2018-08-11] MEDS ORDERED: CATHETER FLUSH 10 ML SYR IV PRN (12:30)
[2018-08-11 12:32] LABS: HEMOGLOBIN 13.5 G/DL (13.3-17.7); MEAN PLATELET VOLUME 10.1 FL (7.4-10.4); RED BLOOD COUNT 4.38 10^6/uL (4.35-5.85); RED CELL DISTRIBUTION WIDTH 13.8 % (10.0-14.5); WHITE BLOOD COUNT 11.1 10^3/uL (4.3-11.0)
[2018-08-11 12:33] LABS: BILIRUBIN,URINE NEGATIVE (NEGATIVE); CLARITY,URINE CLEAR; COLOR,URINE YELLOW; GLUCOSE, URINE (UA) NEGATIVE (NEGATIVE); KETONES,URINE NEGATIVE (NEGATIVE); LEUKOCYTE ESTERASE ,URINE NEGATIVE (NEGATIVE); NITRITE,URINE NEGATIVE (NEGATIVE); PH,URINE 6 (5-9); PROTEIN,URINE 2+ (NEGATIVE); UROBILINOGEN,URINE NORMAL (NORMAL)
--- NOTE | 2018-08-11 12:39 | Diagnostic Imaging Report ---
INDICATION: Fall from height. TIME OF EXAM: 12:17 PM Correlation is made with prior chest from 05/01/2017. FINDINGS: There is some increased density in the right upper lobe consistent with some infiltrate. Left lung is clear. No effusion or pneumothorax is seen. There are findings suggestive of a fracture involving the mid third of the right clavicle. IMPRESSION: 1. Right upper lobe infiltrate, suspicious for pulmonary contusion. No pneumothorax is seen. 2. Right clavicle fracture. Dictated by: Dictated on workstation # [id number]
[2018-08-11 12:40] LABS: BACTERIA,URINE NEGATIVE /HPF
[2018-08-11 12:48] LABS: AMPHETAMINE SCREEN, URINE NEGATIVE (NEGATIVE); BARBITURATE SCREEN URINE NEGATIVE (NEGATIVE); BENZODIAZEPINES SCREEN URINE NEGATIVE (NEGATIVE); CANNABINOID SCREEN, URINE NEGATIVE (NEGATIVE); COCAINE SCREEN URINE NEGATIVE (NEGATIVE); METHADONE STAT NEGATIVE (NEGATIVE); METHAMPHETAMINE SCREEN URINE S NEGATIVE (NEGATIVE); OPIATE SCREEN URINE NEGATIVE (NEGATIVE); OXYCODONE STAT NEGATIVE (NEGATIVE); PROPOXYPHENE STAT NEGATIVE (NEGATIVE); TRICYCLIC ANTIDEPRESSANTS SCRE NEGATIVE (NEGATIVE)
[2018-08-11 12:54] LABS: ALANINE AMINOTRANSFERASE 67 U/L (0-55); ALBUMIN 4.5 GM/DL (3.2-4.5); ALKALINE PHOSPHATASE 64 U/L (40-136); BILIRUBIN,DIRECT 0.2 MG/DL (0.0-0.3); BILIRUBIN,INDIRECT 0.3 MG/DL; BILIRUBIN,TOTAL 0.5 MG/DL (0.1-1.0); BUN/CREATININE RATIO 13; CALCIUM 9.2 MG/DL (8.5-10.1); CARBON DIOXIDE 26 MMOL/L (21-32); CHLORIDE 103 MMOL/L (98-107); CREATININE SERUM 0.93 MG/DL (0.60-1.30); GFR ESTIMATED > 60; GLUCOSE 143 MG/DL (70-105); MAGNESIUM 2.2 MG/DL (1.8-2.4); PHOSPHORUS 2.5 MG/DL (2.3-4.7); POTASSIUM 3.5 MMOL/L (3.6-5.0); SODIUM 139 MMOL/L (135-145)
[2018-08-11 13:04] LABS: FIBRIN DEGRADATION PRODUCTS 10.07 UG/ML (0.00-0.49)
--- NOTE | 2018-08-11 13:11 | ED Trauma-Vehiclar ---
General Chief Complaint: Trauma EMS/Air Arrival Activat Stated Complaint: FALL Time Seen by MD: 12:00 Source: family, EMS Exam Limitations: no limitations (DOUG COLLINS APRN) Time Seen by MD: 12:15 (TRINIDAD RODRIGUEZ MD) History of Present Illness Date Seen by Provider: Aug 11, 2018 Time Seen by Provider: 13:08 Initial Comments To ER with reports of a fall approximately 14 feet from a ladder while working on a second story window. This was an unwitnessed fall. When bystanders found him they noticed him to be confused. He has a history of "chest episodes" according to his were he would develop chest pain and then become confused and incoherent. His boss who found him and noticed him confused assumed that he must of had chest pain which prompted the fall. However the states that he' s not had any episodes like this for a long time. EMS arrived, brought him to the emergency room. Occurred: just prior to arrival Severity: moderate Injury/Pain Location: chest, lower extremity Modifying Factors: Worse With Movement Loss of Consciousness: unsure (DOUG COLLINS APRN) Time Seen by Provider: 12:15 (TRINIDAD RODRIGUEZ MD) Allergies and Home Medications Allergies Coded Allergies: No Known Drug Allergies (Verified , 03/28/13) Home Medications Lisinopril 10 Mg Tablet, 10 MG PO DAILY, (Reported) Tamsulosin HCl 0.4 Mg Cap, 0.4 MG PO HS, (Reported) Patient Home Medication List Home Medication List Reviewed: Yes (DOUG COLLINS APRN) Review of Systems Review of Systems Constitutional: see HPI Eyes: No Symptoms Reported Ears: No Symptoms Reported Nose: No Symptoms Reported Mouth: No Symptoms Reported Throat: No Symptoms to Report Respiratory: no symptoms reported Cardiovascular: No Symptoms Reported Genitourinary: no symptoms reported Musculoskeletal: see HPI, back pain Skin: no symptoms reported Psychiatric/Neurological: No Symptoms Reported (DOUG COLLINS APRN) Past Ckwjjfd-Jbbwtq-Ylefxs Hx Patient Social History Alcohol Use: Occasionally Uses Number of Drinks Today: AA Alcohol Beverage of Choice: Beer Recreational Drug Use: No Smoking Status: Current Everyday Smoker Type Used: Cigarettes 2nd Hand Smoke Exposure: Yes Recent Hopitalizations: No Physical Abuse: No Sexual Abuse: No Mistreated: No Fear: No (DOUG COLLINS APRN) Immunizations Up To Date Tetanus Booster (TDap): Less than 5yrs Date of Influenza Vaccine: Oct 02, 2014 (DOUG COLLINS APRN) Seasonal Allergies Seasonal Allergies: No (DOUG COLLINS APRN) Past Medical History Surgeries: Yes (RECTAL CYST, HEART CATH) Respiratory: Yes (possible COPD recently tested no results back) COPD Cardiac: Yes ( HEART CATH NOT TAKING B/P MEDS STOPPED ON OWN) Hypertension Neurological: No Reproductive Disorders: No Sexually Transmitted Disease: No HIV/AIDS: No Gastrointestinal: Yes (bowel incontinence) Musculoskeletal: Yes (BULGING DISK, narrowing of spine ) Chronic Back Pain Endocrine: No Hearing Impairment: Denies Cancer: No Psychosocial: No Integumentary: No Blood Disorders: No Adverse Reaction/Blood Tranf: No (DOUG COLLINS APRN) Family Medical History FHx: esophageal cancer FHx: lung cancer Heart Disease, Cancer (DOUG COLLINS APRN) Physical Exam Vital Signs Vital Signs - First Documented 08/11/18 12:13 Temp 96.4 Pulse 81 Resp 31 B/P (MAP) 116/81 (93) Pulse Ox 97 O2 Delivery Nasal Cannula O2 Flow Rate 2.00 (TRINIDAD RODRIGUEZ MD) Vital Signs Capillary Refill : (DOUG COLLINS APRN) Height, Weight, BMI Height: 6'2.00" Weight: 170lbs. 0.0oz. [id number]; 21.8 BMI Method:Stated General Appearance: WD/WN, moderate distress, thin HEENT: PERRL/EOMI, normal ENT inspection Neck: non-tender, full range of motion, other (rigid cervical collar applied upon arrival to ER. There is a 1 similar laceration overlying the medial border of the right clavicle. There is obvious deformity of the right clavicle. Lung sounds are diminished on the right. No jugular vein distention) Cardiovascular: regular rate, rhythm, no murmur Respiratory: no respiratory distress, no accessory muscle use Gastrointestinal: normal bowel sounds, non tender, soft Rectal: normal rectal tone (normal rectal tone and no gross blood in the rectal vault on KONSTANTIN.), other Pelvic: other (no blood at the urethral meatus. Left hip over the greater trochanter is tender to palpation but the pelvis is otherwise stable) Extremities: non-tender, pelvis stable, other (abrasion of the left anterior lower leg.) Neurologic/Psychiatric: alert, normal mood/affect, other (GCS is 13. His eyes are open spontaneously. He withdraws to painful stimuli. Only words spoken are "this hurts" and does not otherwise answer questions) Skin: normal color, warm/dry (DOUG COLLINS APRN) [place] Coma Score Best Eye Response: (4) Open Spontaneously Best Verbal Response: (4) Confused Conversation Best Motor Response: (4) Withdraws to Pain [place] Total: 12 (DOUG COLLINS APRN) Focused Exam Lactate Level 08/11/18 12:15: Lactic Acid Level 1.37 (TRINIDAD RODRIGUEZ MD) Lactic Acid Level Laboratory Tests Test 08/11/18 12:15 Lactic Acid Level 1.37 MMOL/L (0.50-2.00) (TRINIDAD RODRIGUEZ MD) Progress/Results/Core Measures Results/Orders Lab Results Laboratory Tests Test 08/11/18 12:15 08/11/18 12:22 Range/Units White Blood Count 11.1 H 4.3-11.0 10^3/uL Red Blood Count 4.38 4.35-5.85 10^6/uL Hemoglobin 13.5 13.3-17.7 G/DL Hematocrit 40 40-54 % Mean Corpuscular Volume 90 80-99 FL Mean Corpuscular Hemoglobin 31 25-34 PG Mean Corpuscular Hemoglobin Concent 34 32-36 G/DL Red Cell Distribution Width 13.8 10.0-14.5 % Platelet Count 256 130-400 10^3/uL Mean Platelet Volume 10.1 7.4-10.4 FL Prothrombin Time 13.0 12.2-14.7 SEC INR Comment 1.0 0.8-1.4 Activated Partial Thromboplast Time 24 24-35 SEC Fibrinogen 269 221-496 MG/DL D-Dimer 10.07 H 0.00-0.49 UG/ML Sodium Level 139 135-145 MMOL/L Potassium Level 3.5 L 3.6-5.0 MMOL/L Chloride Level 103 98-107 MMOL/L Carbon Dioxide Level 26 21-32 MMOL/L Anion Gap 10 5-14 MMOL/L Blood Urea Nitrogen 12 7-18 MG/DL Creatinine 0.93 0.60-1.30 MG/DL Estimat Glomerular Filtration Rate > 60 BUN/Creatinine Ratio 13 Glucose Level 143 H 70-105 MG/DL Lactic Acid Level 1.37 0.50-2.00 MMOL/L Calcium Level 9.2 8.5-10.1 MG/DL Phosphorus Level 2.5 2.3-4.7 MG/DL Magnesium Level 2.2 1.8-2.4 MG/DL Total Bilirubin 0.5 0.1-1.0 MG/DL Direct Bilirubin 0.2 0.0-0.3 MG/DL Indirect Bilirubin 0.3 MG/DL Aspartate Amino Transf (AST/SGOT) 102 H 5-34 U/L Alanine Aminotransferase (ALT/SGPT) 67 H 0-55 U/L Alkaline Phosphatase 64 40-136 U/L Myoglobin 1775.7 H 10.0-92.0 NG/ML Troponin I < 0.30 <0.30 NG/ML Total Protein 7.0 6.4-8.2 GM/DL Albumin 4.5 3.2-4.5 GM/DL Serum Alcohol < 10 <10 MG/DL Urine Color YELLOW Urine Clarity CLEAR Urine pH 6 5-9 Urine Specific [place] 1.015 L 1.016-1.022 Urine Protein 2+ H NEGATIVE Urine Glucose (UA) NEGATIVE NEGATIVE Urine Ketones NEGATIVE NEGATIVE Urine Nitrite NEGATIVE NEGATIVE Urine Bilirubin NEGATIVE NEGATIVE Urine Urobilinogen NORMAL NORMAL MG/DL Urine Leukocyte Esterase NEGATIVE NEGATIVE Urine RBC (Auto) NEGATIVE NEGATIVE Urine RBC NONE /HPF Urine WBC NONE /HPF Urine Squamous Epithelial Cells NONE /HPF Urine Crystals NONE /LPF Urine Bacteria NEGATIVE /HPF Urine Casts NONE /LPF Urine Mucus NEGATIVE /LPF Urine Culture Indicated NO Urine Opiates Screen NEGATIVE NEGATIVE Urine Oxycodone Screen NEGATIVE NEGATIVE Urine Methadone Screen NEGATIVE NEGATIVE Urine Propoxyphene Screen NEGATIVE NEGATIVE Urine Barbiturates Screen NEGATIVE NEGATIVE Ur Tricyclic Antidepressants Screen NEGATIVE NEGATIVE Urine Phencyclidine Screen NEGATIVE NEGATIVE Urine Amphetamines Screen NEGATIVE NEGATIVE Urine Methamphetamines Screen NEGATIVE NEGATIVE Urine Benzodiazepines Screen NEGATIVE NEGATIVE Urine Cocaine Screen NEGATIVE NEGATIVE Urine Cannabinoids Screen NEGATIVE NEGATIVE (TRINIDAD RODRIGUEZ MD) My Orders Orders - TRINIDAD RODRIGUEZ MD Cbc No Diff (08/11/18 12:16) Basic Metabolic Panel (08/11/18 12:16) Fibrin Degradation Products (08/11/18 12:16) Lactic Acid Analyzer (08/11/18 12:16) Phosphorus (08/11/18 12:16) Alcohol (08/11/18 12:16) Protime With Inr (08/11/18 12:16) Partial Thromboplastin Time (08/11/18 12:16) Fibrinogen (08/11/18 12:16) Cardiac Profile 1 (08/11/18 12:16) Liver Panel (08/11/18 12:16) Drug Screen Stat (Urine) (08/11/18 12:16) Magnesium (08/11/18 12:16) Type And Screen (08/11/18 12:16) Chest 1 View, Ap/Pa Only (08/11/18 12:16) Pelvis (08/11/18 12:16) Ct Head/Cervical Spine Wo (08/11/18 12:16) End Tidal Co2 (08/11/18 12:16) Monitor-Rhythm Ecg Trace Only (08/11/18 12:16) Saline Lock/Iv-Start (08/11/18 12:16) Ua Culture If Indicated (08/11/18 12:16) Ct Chest/Abdomen/Pelvis W (08/11/18 12:16) Ekg Tracing (08/11/18 12:23) Myoglobin Serum (08/11/18 12:23) O2 (08/11/18 12:23) Fentanyl Injection (Sublimaze Injection (08/11/18 12:25) Femur, Bilateral, 2 Views (08/11/18 12:22) Tibia/Fibula, Bilateral, 2view (08/11/18 12:22) Iohexol Injection (Omnipaque 350 Mg/Ml 1 (08/11/18 12:30) Sodium Chloride Flush (Catheter Flush Sy (08/11/18 12:30) Ns (Ivpb) (Sodium Chloride 0.9%) (08/11/18 12:30) Pharmacy Communication (Pharmacy Communi (08/11/18 12:27) Red Cells Leukocytes Reduced (08/11/18 12:15) Fentanyl Injection (Sublimaze Injection (08/11/18 13:45) (TRINIDAD RODRIGUEZ MD) Medications Given in ED (TRINIDAD RODRIGUEZ MD) Vital Signs/I&O 08/11/18 08/11/1808/11/18 12:13 12:13 14:10 Temp 96.4 Pulse 81 81 Resp 31 14 B/P (MAP) 116/81 (93) 129/78 (95) Pulse Ox 97 98 100 O2 Delivery Nasal Cannula NIV Bilevel Nasal Cannula O2 Flow Rate 2.00 6.00 08/12/18 00:00 Intake Total 850 ml Balance 850 ml (TRINIDAD RODRIGUEZ MD) Progress Progress Note : Time: 13:36 Progress Note This patient was seen and examined by this provider, Doug Collins APRN, and Dr. Nain Bolivar (trauma surgeon buttonholer) immediately upon arrival. Type I trauma activation was paged. Patient's vital signs were stable and he was alert with GCS of 12 or 13. Patient's reports that the fall was unwitnessed at a work site. Patient has been thoroughly assessed with CT imaging. There are 2 small periventricular intracerebral hemorrhages. Patient has numerous injuries including an open fracture of the right clavicle, 6 anterior rib fractures on the right, 2 posterior rib fractures on the right, small pneumothorax, multiple transverse process fractures in the lumbar spine, and endplate fracture of L5, and a left hip fracture. Patient's vital signs have remained stable. He is on high flow oxygen because of the pneumothorax. There was some discussion about whether a chest tube and/or intubation were appropriate for this patient. Since he has remained stable and the pneumothorax is small, Dr. Bolivar has decided against a chest tube placement. He has also advised against TXA due to the intracranial bleed. Since there was some question about chest pain prior to the fall, EKG was obtained and reviewed by Dr. Millard, solution spec on-call. There are no acute ischemic changes on the EKG. Patient has received 2 doses of fentanyl for pain management. Case has been reviewed with Dr. Ivey, ER physician at [facility]. We agree that transfer by ground is most appropriate for this patient as the helicopter will need to land at the airport instead of the hospital due to weather. This will delay transfer and would therefore incur little to no benefit over ground transport alone. I have updated the patient and his who are in agreement with transfer to [facility]. EMS has been notified of transfer via dispatch. (TRINIDAD RODRIGUEZ MD) Initial ECG Impression Date: Aug 11, 2018 Initial ECG Impression Time: 12:19 Initial ECG Rate: 74 Initial ECG Rhythm: Normal Sinus Comment Sinus rhythm with no ST elevation or depression. First-degree A-V block and right bundle branch block. No axis deviation. (TRINIDAD RODRIGUEZ MD) Diagnostic Imaging Diagonstic Imaging: CT Plain Films/CT/US/NM/MRI: c-spine, head Comments CT head and cervical spine viewed by me and report reviewed. Discussed with radiologist. See report below: NAME: ANDRIA ALLISON [facility] REC#: [id number] PT STATUS: DEP ER : 1970 PHYSICIAN: TRINIDAD RODRIGUEZ MD ADMIT DATE: 08/11/18/ER Signed Date of Exam: 08/11/18 CT HEAD/CERVICAL SPINE WO PROCEDURE: CT head and CT cervical spine without contrast. TECHNIQUE: Multiple contiguous axial images were obtained through the brain and cervical spine without the use of intravenous contrast. Sagittal and coronal reformations through the cervical spine were then performed. INDICATION: Fall from height. CT BRAIN: Comparison is made with CT brain from 03/28/2013. The ventricular size is normal. There are two foci of hyperdensity adjacent to the right lateral ventricle, largest measuring approximately 9 mm in diameter. It consistent with tiny areas of hemorrhage. No hydrocephalus is seen. There is no mass effect or midline shift. Ortiz-white matter differentiation is maintained. Cisterns are patent. The visualized paranasal sinuses are clear. IMPRESSION: Several small foci of acute hemorrhage adjacent to the right lateral ventricle. No other abnormality is seen. CT CERVICAL SPINE: Curvature and alignment is normal. No cervical spine fracture is seen. Prevertebral tissues are within normal limits. The odontoid is intact. There is a fracture involving the right first rib. Small right apical pneumothorax is also seen. IMPRESSION: 1. No acute bony abnormality detected. 2. Right first rib fracture and small right apical pneumothorax. Dictated by: Dictated on workstation # [id number] Dict: 08/11/18 1317 Trans: 08/11/18 1535 Interpreted by: JERRY NICKERSON MD Electronically signed by: JERRY NICKERSON MD 08/11/18 1538 Diagonstic Imaging: CT Plain Films/CT/US/NM/MRI: chest, abdomen, pelvis Comments CT chest, abdomen and pelvis viewed by me and report reviewed. Discussed with the radiologist. See report below: NAME: ANDRIA ALLISON [facility] REC#: [id number] PT STATUS: DEP ER : 1970 PHYSICIAN: TRINIDAD RODRIGUEZ MD ADMIT DATE: 08/11/18/ER Signed Date of Exam: 08/11/18 CT CHEST/ABDOMEN/PELVIS W PROCEDURE: CT chest, abdomen, and pelvis with contrast. TECHNIQUE: Multiple contiguous axial images were obtained through the chest, abdomen, and pelvis after the administration of intravenous contrast. INDICATION: Trauma, fall from height. CT CHEST: No definite mediastinal hematoma or great vessel injury is seen. No pericardial fluid or hemothorax is identified. There are some patchy airspace infiltrates in the right upper lobe consistent with pulmonary contusion. Minimal patchy contusion right lower lobe is also seen. There is a small right-sided pneumothorax. Left lung is unremarkable. Multiple fractures are present. Comminuted fracture involving the right clavicle. The sternum appears intact. There are numerous rib fractures present. A right first rib fracture near the articulation with the vertebral body is seen. There are anterior fractures involving the right third, fourth, fifth, sixth, seventh, eighth and ninth ribs. There are also some fractures involving right posterior first, eighth and ninth ribs. Left-sided ribs appear intact. Thoracic vertebrae are intact. IMPRESSION: 1. No mediastinal hematoma or great vessel injury is seen. 2. Right-sided pulmonary contusions and small right pneumothorax. 3. Numerous fractures including the right clavicle and right-sided ribs. CT ABDOMEN AND PELVIS: No focal liver or splenic laceration is seen. The gallbladder and pancreas are unremarkable. No adrenal hematoma or renal injury is seen. There is no pneumothorax. Aorta is heavily calcified but not aneurysmal. The bowel loops are unremarkable. No free fluid in the abdomen is seen. Evaluation of the bony structures does show fractures involving all right-sided transverse processes of the lumbar spine. Lumbar vertebrae show normal stature. There is a fracture through the superior endplate of the L3 vertebral body on the left side. There is also fracture through the inferior endplate of the L5 vertebral body on the left side. Right hip appears intact. Superior and inferior to the rami are intact. There is a fracture in the intertrochanteric region of the left hip with overriding of fracture fragments. Femoral acetabular alignment is maintained. The SI joints and symphysis are non-widened. Bladder is decompressed by Jones catheter. IMPRESSION: 1. No evidence of abdominal or pelvic visceral injury. 2. Numerous fractures including right-sided L1 through L5 transverse processes. There are also endplate fractures at the L3 and L5 levels without evidence of compression or retropulsion. Left hip intertrochanteric fracture is also noted. Dictated by: Dictated on workstation # [id number] Dict: 08/11/18 1320 Trans: 08/11/18 153 Interpreted by: JERRY NICKERSON MD Electronically signed by: JERRY NICKERSON MD 08/11/181534 Diagonstic Imaging: Xray Plain Films/CT/US/NM/MRI: chest Comments Chest x-ray viewed by me and report reviewed. See report below: NAME: ANDRIA ALLISON [facility] REC#: [id number] PT STATUS: DEP ER : 1970 PHYSICIAN: TRINIDAD RODRIGUEZ MD ADMIT DATE: 08/11/18/ER Signed Date of Exam: 08/11/18 CHEST 1 VIEW, AP/PA ONLY INDICATION: Fall from height. TIME OF EXAM: 12:17 PM Correlation is made with prior chest from 05/01/2017. FINDINGS: There is some increased density in the right upper lobe consistent with some infiltrate. Left lung is clear. No effusion or pneumothorax is seen. There are findings suggestive of a fracture involving the mid third of the right clavicle. IMPRESSION: 1. Right upper lobe infiltrate, suspicious for pulmonary contusion. No pneumothorax is seen. 2. Right clavicle fracture. Dictated by: Dictated on workstation # [id number] Dict: 08/11/18 1233 Trans: 08/11/18 153 Interpreted by: JERRY NICKERSON MD Electronically signed by: JERRY NICKERSON MD 08/11/18 153 Diagonstic Imaging: Xray Plain Films/CT/US/NM/MRI: pelvis Comments Pelvis x-ray viewed by me and report reviewed. See report below: NAME: ANDRIA ALLISON [facility] REC#: [id number] PT STATUS: [facility] ER : 1970 PHYSICIAN: TRINIDAD RODRIGUEZ MD ADMIT DATE: 08/11/18/ER Signed Date of Exam: 08/11/18 PELVIS INDICATION: Fall from height. TIME OF EXAM: 12:18 p.m. An AP view of pelvis is obtained. The entire left hip was not included on the study. There appears to be some cortical interruption along the medial aspect of the left femoral neck suggestive of fracture. Right hip is intact. The rami are intact. SI joints and symphysis are non-widened. IMPRESSION: A limited view of the left hip with findings suggestive of fracture. Dedicated left hip film radiographs are recommended. Dictated by: Dictated on workstation # [id number] Dict: 08/11/18 1234 Trans: 08/11/18 1535 Interpreted by: JERRY NICKERSON MD Electronically signed by: JERRY NICKERSON MD 08/11/18 1535 Diagonstic Imaging: Xray Plain Films/CT/US/NM/MRI: leg Comments Bilateral tib-fib x-rays viewed by me and report reviewed. See report below: NAME: ANDRIA ALLISON [facility] REC#: [id number] PT STATUS: [facility] ER : 1970 PHYSICIAN: TRINIDAD RODRIGUEZ MD ADMIT DATE: 08/11/18/ER Signed Date of Exam: 08/11/18 TIBIA/FIBULA, BILATERAL, 2VIEW INDICATION: Fall from height. Time of exam 1:22 PM Multiple views bilateral tibia and fibula were obtained. The crosstable lateral view on the right does show some cortical interruption in the region of the distal fibula suggestive of a fracture. No displacement is seen. Alignment at the knees and ankles appears normal bilaterally without dislocation. No fractures on the left are identified. IMPRESSION: Findings suspect for fracture involving the distal right fibula only seen on the lateral view. Dedicated right ankle regressed would be useful for further evaluation. Dictated by: Dictated on workstation # [id number] Dict: 08/11/18 1328 Trans: 08/11/181534 Interpreted by: JERRY NICKERSON MD Electronically signed by: JERRY NICKERSON MD 08/11/185 Diagonstic Imaging: Xray Plain Films/CT/US/NM/MRI: leg Comments Bilateral femur x-rays viewed by me and report reviewed. See report below: NAME: ANDRIA ALLISON [facility] REC#: [id number] PT STATUS: DEP ER : 1970 PHYSICIAN: TRINIDAD RODRIGUEZ MD ADMIT DATE: 08/11/18/ER Signed Date of Exam: 08/11/18 FEMUR, BILATERAL, 2 VIEWS INDICATION: Trauma, fall from height. Time of exam 1:29 PM Multiple views bilateral femora were obtained. There is a fracture through the intertrochanteric left hip with coxa varus deformity. Femoral acetabular alignment is maintained. The remainder of the left femur is intact. The right hip shows normal femoral acetabular alignment. Right femoral head and neck are intact. Alignment at the knee is normal. IMPRESSION: Intertrochanteric left hip fracture. Dictated by: Dictated on workstation # [id number] Dict: 08/11/18 1337 Trans: 08/11/181534 Interpreted by: JERRY NICKERSON MD Electronically signed by: JERRY NICKERSON MD 08/11/181534 (TRINIDAD RODRIGUEZ MD) Critical Care Note Critical Care Start Time: 12:15 Stop Time: 14:10 Total Time (minutes) 115 (TRINIDAD RODRIGUEZ MD) Departure Communication (Admissions) Upon arrival to the emergency room rigid cervical collar was applied, gauze 4 x 4's were applied over the open wound over the medial border of the right clavicle. Dr. Bolivar trauma surgeon at the bedside. He is tender to palpation of the left hip. The chest has diminished lung sounds on the right, symmetrical rise and fall with no obvious flail chest. Abdomen is flat and soft and tenderness is difficult to assess given his other injuries. He does move all extremities. He was then log rolled vomiting C-spine precautions. No obvious vertebral step-offs. No bruising or abrasions to the back. Rectal tone was checked and normal, there is no blood in the rectal vault. He was given 50 g of fentanyl and transported to CT. Fast exam was not done as he is hemodynamically stable with a heart rate in the 80s, oxygen saturation 97%, respiratory rate of 20 and blood pressure of 120s over 70s.We do not have orthopedic coverage today there is an obvious right clavicle fracture and suspected left hip fracture so he will require transfer to a different facility. Official CT report is not back yet, other injuries will be further identified pending radiologist's report. (DOUG COLLINS APRN) Impression Primary Impression: Blunt trauma of multiple sites Additional Impressions: Fall Qualified Codes: W19.XXXA - Unspecified fall, initial encounter Open fracture clavicle, shaft Qualified Codes: S42.021B - Displaced fracture of shaft of right clavicle, initial encounter for open fracture Hip fracture, left Qualified Codes: S72.002A - Fracture of unspecified part of neck of left femur , initial encounter for closed fracture Fracture of lumbar spine Qualified Codes: S32.009A - Unspecified fracture of unspecified lumbar vertebra, initial encounter for closed fracture Pulmonary contusion Qualified Codes: S27.321A - Contusion of lung, unilateral, initial encounter Pneumothorax, right Right rib fracture Qualified Codes: S22.41XA - Multiple fractures of ribs, right side, initial encounter for closed fracture Intracranial hemorrhage on right side following injury Qualified Codes: S06.300A - Unspecified focal traumatic brain injury without loss of consciousness, initial encounter Altered mental status Qualified Codes: R41.82 - Altered mental status, unspecified Fracture of distal end of right fibula Qualified Codes: S82.831A - Other fracture of upper and lower end of right fibula, initial encounter for closed fracture Disposition: 02 XFER [facility]M HOSP Condition: Critical Transfer Time Spoke to Accepting Phy: 13:19 Transfer Time: 14:10 Transfer Facility: [facility] to Dr. Ivey, ER physician Method of Transfer: EMS (TRINIDAD RODRIGUEZ MD) Departure-Patient Inst. Referrals: ANIKET LUCIO DO (PCP) Primary Care Physician LI ASTORGA (Family) Primary Care Physician DOUG COLLINS APRN Aug 11, 2018 13:11 TRINIDAD RODRIGUEZ MD Aug 11, 2018 13:40
--- NOTE | 2018-08-11 13:23 | Diagnostic Imaging Report ---
PROCEDURE: CT head and CT cervical spine without contrast. TECHNIQUE: Multiple contiguous axial images were obtained through the brain and cervical spine without the use of intravenous contrast. Sagittal and coronal reformations through the cervical spine were then performed. INDICATION: Fall from height. CT BRAIN: Comparison is made with CT brain from 03/28/2013. The ventricular size is normal. There are two foci of hyperdensity adjacent to the right lateral ventricle, largest measuring approximately 9 mm in diameter. It consistent with tiny areas of hemorrhage. No hydrocephalus is seen. There is no mass effect or midline shift. Ortiz-white matter differentiation is maintained. Cisterns are patent. The visualized paranasal sinuses are clear. IMPRESSION: Several small foci of acute hemorrhage adjacent to the right lateral ventricle. No other abnormality is seen. CT CERVICAL SPINE: Curvature and alignment is normal. No cervical spine fracture is seen. Prevertebral tissues are within normal limits. The odontoid is intact. There is a fracture involving the right first rib. Small right apical pneumothorax is also seen. IMPRESSION: 1. No acute bony abnormality detected. 2. Right first rib fracture and small right apical pneumothorax. Dictated by: Dictated on workstation # [id number]
[2018-08-11] MEDS ORDERED: fentaNYL INJECTION 100 MCG/2 ML AMP IVP ONE ×2 (13:30→13:45)
[2018-08-11] MEDS ORDERED: ceFAZolin INJECTION 1,000 MG in NS (IVPB) 50 ML IV ONE (13:30)
[2018-08-11] MEDS ORDERED: TETANUS,DIPTH,PERTUSS P/F (BOOSTRIX) 0.5 ML VIAL IM ONE (13:30)
--- NOTE | 2018-08-11 13:32 | Diagnostic Imaging Report ---
INDICATION: Fall from height. Time of exam 1:22 PM Multiple views bilateral tibia and fibula were obtained. The crosstable lateral view on the right does show some cortical interruption in the region of the distal fibula suggestive of a fracture. No displacement is seen. Alignment at the knees and ankles appears normal bilaterally without dislocation. No fractures on the left are identified. IMPRESSION: Findings suspect for fracture involving the distal right fibula only seen on the lateral view. Dedicated right ankle regressed would be useful for further evaluation. Dictated by: Dictated on workstation # [id number]
--- NOTE | 2018-08-11 13:33 | Diagnostic Imaging Report ---
PROCEDURE: CT chest, abdomen, and pelvis with contrast. TECHNIQUE: Multiple contiguous axial images were obtained through the chest, abdomen, and pelvis after the administration of intravenous contrast. INDICATION: Trauma, fall from height. CT CHEST: No definite mediastinal hematoma or great vessel injury is seen. No pericardial fluid or hemothorax is identified. There are some patchy airspace infiltrates in the right upper lobe consistent with pulmonary contusion. Minimal patchy contusion right lower lobe is also seen. There is a small right-sided pneumothorax. Left lung is unremarkable. Multiple fractures are present. Comminuted fracture involving the right clavicle. The sternum appears intact. There are numerous rib fractures present. A right first rib fracture near the articulation with the vertebral body is seen. There are anterior fractures involving the right third, fourth, fifth, sixth, seventh, eighth and ninth ribs. There are also some fractures involving right posterior first, eighth and ninth ribs. Left-sided ribs appear intact. Thoracic vertebrae are intact. IMPRESSION: 1. No mediastinal hematoma or great vessel injury is seen. 2. Right-sided pulmonary contusions and small right pneumothorax. 3. Numerous fractures including the right clavicle and right-sided ribs. CT ABDOMEN AND PELVIS: No focal liver or splenic laceration is seen. The gallbladder and pancreas are unremarkable. No adrenal hematoma or renal injury is seen. There is no pneumothorax. Aorta is heavily calcified but not aneurysmal. The bowel loops are unremarkable. No free fluid in the abdomen is seen. Evaluation of the bony structures does show fractures involving all right-sided transverse processes of the lumbar spine. Lumbar vertebrae show normal stature. There is a fracture through the superior endplate of the L3 vertebral body on the left side. There is also fracture through the inferior endplate of the L5 vertebral body on the left side. Right hip appears intact. Superior and inferior to the rami are intact. There is a fracture in the intertrochanteric region of the left hip with overriding of fracture fragments. Femoral acetabular alignment is maintained. The SI joints and symphysis are non-widened. Bladder is decompressed by Jones catheter. IMPRESSION: 1. No evidence of abdominal or pelvic visceral injury. 2. Numerous fractures including right-sided L1 through L5 transverse processes. There are also endplate fractures at the L3 and L5 levels without evidence of compression or retropulsion. Left hip intertrochanteric fracture is also noted. Dictated by: Dictated on workstation # [id number]
--- NOTE | 2018-08-11 13:39 | Diagnostic Imaging Report ---
INDICATION: Trauma, fall from height. Time of exam 1:29 PM Multiple views bilateral femora were obtained. There is a fracture through the intertrochanteric left hip with coxa varus deformity. Femoral acetabular alignment is maintained. The remainder of the left femur is intact. The right hip shows normal femoral acetabular alignment. Right femoral head and neck are intact. Alignment at the knee is normal. IMPRESSION: Intertrochanteric left hip fracture. Dictated by: Dictated on workstation # [id number]
[2018-08-11 14:10] VITALS: BP 129/78
--- NOTE | 2018-08-11 15:38 | Diagnostic Imaging Report ---
INDICATION: Fall from height. TIME OF EXAM: 12:18 p.m. An AP view of pelvis is obtained. The entire left hip was not included on the study. There appears to be some cortical interruption along the medial aspect of the left femoral neck suggestive of fracture. Right hip is intact. The rami are intact. SI joints and symphysis are non-widened. IMPRESSION: A limited view of the left hip with findings suggestive of fracture. Dedicated left hip film radiographs are recommended. Dictated by: Dictated on workstation # [id number]
--- NOTE | 2018-08-11 17:40 | Consultation ---
History of Present Illness History of Present Illness Patient Consulted On(lorena/time) 08/11/18 17:35 Time Seen by Provider: 12:16 History of Present Illness This was a type I trauma activation, I arrived at bedside about 1 minute after pt arrived. HPI per ED: To ER with reports of a fall approximately 14 feet from a ladder while working on a second story window. This was an unwitnessed fall. When bystanders found him they noticed him to be confused. He has a history of " chest episodes" according to his were he would develop chest pain and then become confused and incoherent. His boss who found him and noticed him confused assumed that he must of had chest pain which prompted the fall. However the states that he's not had any episodes like this for a long time. EMS arrived, brought him to the emergency room. Occurred: just prior to arrival Severity: moderate Injury/Pain Location: chest, lower extremity Modifying Factors: Worse With Movement Loss of Consciousness: unsure The history I got over the phone was unstable vitals, altered consciousness and the ambulance was coming in "lights and sirens". Pt was in severe pain in the ER. He was not really answering questions. We did primary survery, got CXR and pelvis xrays and then sent him to CT. Allergies and Home Medications Allergies Coded Allergies: No Known Drug Allergies (Verified , 03/28/13) Home Medications Lisinopril 10 Mg Tablet, 10 MG PO DAILY, (Reported) Tamsulosin HCl 0.4 Mg Cap, 0.4 MG PO HS, (Reported) Patient Home Medication List Home Medication List Reviewed: Yes Past Ofvsrkl-Pdunbg-Xnghuy Hx Patient Social History Alcohol Use: Occasionally Uses Number of Drinks Today: AA Recreational Drug Use: No Smoking Status: Current Everyday Smoker Type Used: Cigarettes 2nd Hand Smoke Exposure: Yes Recent Foreign Travel: No Contact w/Someone Who Travel: No Recent Infectious Disease Expo: No Recent Hopitalizations: No Immunizations Up To Date Tetanus Booster (TDap): Less than 5yrs Date of Influenza Vaccine: Oct 02, 2014 Seasonal Allergies Seasonal Allergies: No Surgeries History of Surgeries: Yes (RECTAL CYST, HEART CATH) Respiratory History of Respiratory Disorde: Yes (possible COPD recently tested no results back) Respiratory Disorders: COPD Cardiovascular History of Cardiac Disorders: Yes ( HEART CATH NOT TAKING B/P MEDS STOPPED ON OWN) Cardiac Disorders: Hypertension Neurological History of Neurological Disord: No Reproductive System Hx Reproductive Disorders: No Sexually Transmitted Disease: No HIV/AIDS: No Gastrointestinal History of Gastrointestinal Di: Yes (bowel incontinence) Musculoskeletal History of Musculoskeletal Dis: Yes (BULGING DISK, narrowing of spine ) Musculoskeletal Disorders: Chronic Back Pain Endocrine History of Endocrine Disorders: No HEENT Hearing Impairment: Denies Cancer History of Cancer: No Psychosocial History of Psychiatric Problem: No Integumentary History of Skin or Integumenta: No Blood Transfusions History of Blood Disorders: No Adverse Reaction to a Blood Tr: No Family Medical History Significant Family History: Heart Disease, Cancer Family Medial History: FHx: esophageal cancer FHx: lung cancer Review of Systems-General ROS-Unable to Obtain: difficult to obtain, he was only grunting yes or no Constitutional: dizziness EENTM: No blurred vision, No mouth pain, No mouth swelling, No epistaxis Respiratory: cough, dyspnea on exertion; No hemoptysis; short of breath Cardiovascular: chest pain, palpitations, syncope Gastrointestinal: abdominal pain; No constipation, No diarrhea Genitourinary: No dysuria, No frequency, No hematuria Musculoskeletal: back pain, joint pain, joint swelling, muscle pain, muscle stiffness Skin: No change in color, No change in hair/nails Psychiatric/Neurological: Numbness, Paresthesia, Weakness Physical Exam-General Problems Physical Exam Vital Signs Vital Signs - First Documented 08/11/18 12:13 Temp 96.4 Pulse 81 Resp 31 B/P (MAP) 116/81 (93) Pulse Ox 97 O2 Delivery Nasal Cannula O2 Flow Rate 2.00 Capillary Refill : Less Than 3 Seconds General Appearance: severe distress, thin Eyes: Bilateral Eye PERRL, Bilateral Eye EOMI HEENT: pharynx normal; No scleral icterus (R), No scleral icterus (L) Neck: No tender midline, No thyromegaly; other (pt in C-collar) Respiratory: no respiratory distress, decreased breath sounds (right>left), wheezing, other (+ chest tenderness) Cardiovascular: regular rate, rhythm, no murmur Peripheral Pulses: 3+ Carotid (R), 3+ Carotid (L), 3+ Femoral (R), 3+ Femoral ( L), 3+ Dorsalis Pedis (R), 3+ Left Dors-Pedis (L), 3+ Radial Pulses (R), 3+ Radial Pulses (L) Gastrointestinal: no organomegaly, no pulsatile mass, distended, guarding ( involuntary), tenderness (diffuse) Genital/Rectal: normal rectal tone Back: CVA tenderness (R), CVA tenderness (L), vertebral tenderness Extremities: no pedal edema, no calf tenderness, normal capillary refill, other (decreased movement left leg) Neurologic/Psychiatric: clinical nursing assistant II-XII nml as tested Skin: normal color, warm/dry, other (puncture wound from right clavicle, abrasion left tibial region) Lymphatic: no adenopathy (neck, axilla or groin) Data Review Labs Laboratory Tests 08/11/18 12:15: White Blood Count 11.1H, Red Blood Count 4.38, Hemoglobin 13.5, Hematocrit 40, Mean Corpuscular Volume 90, Mean Corpuscular Hemoglobin 31, Mean Corpuscular Hemoglobin Concent 34, Red Cell Distribution Width 13.8, Platelet Count 256, Mean Platelet Volume 10.1, Prothrombin Time 13.0, INR Comment 1.0, Activated Partial Thromboplast Time 24, Fibrinogen 269, D-Dimer 10.07H, Sodium Level 139, Potassium Level 3.5L, Chloride Level 103, Carbon Dioxide Level 26, Anion Gap 10 , Blood Urea Nitrogen 12, Creatinine 0.93, Estimat Glomerular Filtration Rate > 60, BUN/Creatinine Ratio 13, Glucose Level 143H, Lactic Acid Level 1.37, Calcium Level 9.2, Phosphorus Level 2.5, Magnesium Level 2.2, Total Bilirubin 0.5, Direct Bilirubin 0.2, Indirect Bilirubin 0.3, Aspartate Amino Transf (AST/ SGOT) 102H, Alanine Aminotransferase (ALT/SGPT) 67H, Alkaline Phosphatase 64, Myoglobin 1775.7H, Troponin I < 0.30, Total Protein 7.0, Albumin 4.5, Serum Alcohol < 10 08/11/18 12:22: Urine Color YELLOW, Urine Clarity CLEAR, Urine pH 6, Urine Specific [place] 1.015L, Urine Protein 2+H, Urine Glucose (UA) NEGATIVE, Urine Ketones NEGATIVE, Urine Nitrite NEGATIVE, Urine Bilirubin NEGATIVE, Urine Urobilinogen NORMAL, Urine Leukocyte Esterase NEGATIVE, Urine RBC (Auto) NEGATIVE, Urine RBC NONE, Urine WBC NONE, Urine Squamous Epithelial Cells NONE, Urine Crystals NONE, Urine Bacteria NEGATIVE, Urine Casts NONE, Urine Mucus NEGATIVE, Urine Culture Indicated NO, Urine Opiates Screen NEGATIVE, Urine Oxycodone Screen NEGATIVE, Urine Methadone Screen NEGATIVE, Urine Propoxyphene Screen NEGATIVE, Urine Barbiturates Screen NEGATIVE, Ur Tricyclic Antidepressants Screen NEGATIVE, Urine Phencyclidine Screen NEGATIVE, Urine Amphetamines Screen NEGATIVE, Urine Methamphetamines Screen NEGATIVE, Urine Benzodiazepines Screen NEGATIVE, Urine Cocaine Screen NEGATIVE, Urine Cannabinoids Screen NEGATIVE Assessment/Plan Assessment/Plan Assessment/Plan Open Right clavicle fx Left Intertrochanteric fx L1-L5 transverse process fx L1-L3 endplate fx with no compression Right Ribs 3-9 fx 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 SANDRA RODRIGUEZ DO Aug 11, 2018 17:40
== END 2018-08-11 14:10 | disposition short-term general hospital (02) ==
LOC: EDUNIT# 12:13 → ER 12:14
DX: S06.0X9A Concussion with loss of consciousness of unspecified duration, initial encounter (principal); S42.021B Displaced fracture of shaft of right clavicle, initial encounter for open fracture; S72.142A Displaced intertrochanteric fracture of left femur, initial encounter for closed fracture; S32.019A Unspecified fracture of first lumbar vertebra, initial encounter for closed fracture; S32.049A Unspecified fracture of fourth lumbar vertebra, initial encounter for closed fracture; S32.059A Unspecified fracture of fifth lumbar vertebra, initial encounter for closed fracture; S82.831A Other fracture of upper and lower end of right fibula, initial encounter for closed fracture; S22.41XA Multiple fractures of ribs, right side, initial encounter for closed fracture; S27.0XXA Traumatic pneumothorax, initial encounter; S27.321A Contusion of lung, unilateral, initial encounter; J44.9 Chronic obstructive pulmonary disease, unspecified; I10 Essential (primary) hypertension; R40.2142 Coma scale, eyes open, spontaneous, at arrival to emergency department; R40.2242 Coma scale, best verbal response, confused conversation, at arrival to emergency department; R40.2342 Coma scale, best motor response, flexion withdrawal, at arrival to emergency department; F17.210 Nicotine dependence, cigarettes, uncomplicated; Z87.19 Personal history of other diseases of the digestive system; Z80.0 Family history of malignant neoplasm of digestive organs; Z98.890 Other specified postprocedural states; Z80.1 Family history of malignant neoplasm of trachea, bronchus and lung; Z82.49 Family history of ischemic heart disease and other diseases of the circulatory system; W11.XXXA Fall on and from ladder, initial encounter
CPT/HCPCS: 36415; 51702; 70450; 71045; 71260; 72125; 72170; 74177; 80048; 80076; 80306; 80320; 81000; 83605; 83735; 83874; 84100; 84484; 85027; 85379; 85384; 85610; 85730; 86850; 86900; 86901; 86920; 90471; 90715; 93041; 96365; 96375; 96376; 99291; 99292

== ENCOUNTER 2018-10-01 10:05 | Emergency (ER) | payer SELFPAY ==
[~2018-10-01] VITALS: Ht 188 cm; Wt 85.3 kg
--- OUTSIDE RECORDS SUMMARY | 2018-10-01 10:10 | XMS REPORT ---
Author Author ANNA CROWELL Organization [facility] Address [address] [place] [address] Care Team Providers Care Perioperative Nurse Name Role Phone ANNA CROWELL Unavailable PROBLEMS Type Condition ICD9-CM Code [id number] Code Onset Dates Condition Status SNOMED Code Problem Seasonal allergic rhinitis due to other allergic trigger J30.89 Active 249565583 Problem Muscle tension headache G44.209 Active 540154362 Problem Hypertension I10 Active 63448265 Problem Benign prostatic hyperplasia with lower urinary tract symptoms N40.1 Active 882445464 Problem Chronic obstructive pulmonary disease, unspecified COPD type J44.9 Active 41100798 ALLERGIES Substance Reaction Event Type Date Status Percocet itching Drug Allergy Sep, Active ENCOUNTERS Encounter Location Date Diagnosis [place] [address] [address] Sep, Dysfunction of right eustachian tube H69.81 and Seasonal allergic rhinitis due to other allergic trigger J30.[address] [address] May, Hypertension I10 [address] [address] Mar, Muscle tension headache G44.209 and Hypertension I10 [place] [address] [address] Jan, Hypertension I10 and Chronic obstructive pulmonary disease, unspecified COPD type J44.9 [place] [address] [address] Jan, Hypertension I10 [place] [address] [address] Oct, Dyspnea on exertion R06.09 ; Essential (primary) hypertension I10 ; Claudication of both lower extremities I73.9 and Lung nodule R91.1 [place] [id number] [place] [address] 05 Sep, 2017 Encounter for immunization Z23 ; Hypertension I10 ; Benign prostatic hyperplasia with lower urinary tract symptoms N40.1 and Chronic obstructive pulmonary disease, unspecified COPD type J44.9 [place] [address] [place] [id number] [place] [address] Aug, Hypertension I10 and Nocturia R35.1 [place] [address] [place] [id number] [place] [address] Jun, Dyspnea on exertion R06.09 ; Essential (primary) hypertension I10 ; Claudication of both lower extremities I73.9 and Lung nodule R91.1 [place] [address] [place] [id number] [place] [address] May, Chest discomfort R07.89 ; Dyspnea on exertion R06.09 ; Heart palpitations R00.2 ; Hypertension I10 and Tobacco use Z72.0 [place] [address] [place] [id number] [place] [address] May, Flank pain R10.9 ; Fever, unspecified fever cause R50.9 and Diarrhea, unspecified type R19.7 [place] [id number] [place] [address] Apr, Hypertension I10 ; Nocturia R35.1 ; Other chest pain R07.89 and Chronic obstructive pulmonary disease, unspecified COPD type J44.9 [place] [address] [place] [id number] [place] [address] Jan, Nocturia R35.1 ; Hypertension I10 and Screening cholesterol level Z13.220 [place] [address] [place] [address] Jan, Nocturia R35.1 ; Incontinence of feces R15.9 ; Hypertension I10 and Screening cholesterol level Z13.220 [place] [address] [place] [id number] [place] [address] Apr, Hypertension I10 [facility] [address] [place] [id number] [place] [address] Mar, Essential (primary) hypertension I10 [facility] [address] [place] [id number] [place] [address] Oct, Hypertension I10 ; Back pain M54.9 ; Malaise R53.81 ; Nocturia R35.1 and Incontinence of feces R15.9 [facility] [address] [place] [id number] [place] [address] Sep, Hypertension I10 ; Malaise R53.81 ; Nocturia R35.1 and Back pain M54.9 [facility] [address] [place] [id number] [place] [address] Apr, Essential hypertension, benign 401.1 and Environmental allergies V15.09 [facility] [address] [place] [id number] [place] [address] Apr, [facility] [address] [place] [id number] [place] [address] Apr, [facility] [address] [place] [id number] [place] [address] Jan, [facility] [address] [place] [id number] [place] [address] Jan, [facility] [address] [place] [id number] [place] [address] Oct, [facility] [address] [place] [id number] [place] [address] Oct, [facility] [address] [place] [id number] [place] [address] Oct, [facility] [address] [place] [id number] [place] [address] Oct, [facility] [address] [place] [id number] [place] [address] 30 Sep, 2014 [facility] [place] [facility] [address] [id number] [place] [address] 30 Sep, 2014 [facility] [place] [facility] [address] [id number] [place] [address] 15 Sep, 2014 [facility] [place] [facility] [address] [id number] [place] [address] 15 Sep, 2014 [facility] [place] [facility] [address] [id number] [place] [address] 05 Jun, 2013 [facility] [place] [facility] [address] [id number] [place] [address] 05 Jun, 2013 [facility] [place] [facility] [address] [id number] [place] [address] 02 Jun, 2013 [facility] [place] [facility] [address] [id number] [place] [address] 02 Jun, 2013 [facility] [place] [facility] [address] [id number] [place] [address] 02 Jun, 2014 [facility] [place] [facility] [address] [id number] [place] [address] 02 Jun, 2013 [facility] [place] [facility] [address] [facility] [id number] [place] [address] 20 Dec, 2013 [facility] [place] [facility] [address] [id number] [place] [address] 20 Dec, 2013 [facility] [place] [facility] [address] [id number] [place] [address] 07 Aug, 2013 [facility] [place] [facility] [address] [id number] [place] [address] 07 Aug, 2013 [facility] [place] [facility] [address] [id number] [place] [address] 14 Dec, 2012 [facility] [place] [facility] [address] [id number] [place] [address] Dec, [facility] [address] [facility] [id number] [address] Dec, [facility] [address] [id number] [address] Nov, [facility] [id number] [address] Nov, [facility] [id number] [address] Nov, [facility] [address] [address] Nov, [facility] [address] [address] Oct, [facility] [address] [address] May, [facility] [address] [address] May, [facility] [address] [place] [id number] [address] Apr, IMMUNIZATIONS Vaccine Route Administration Date Status SOLUMEDROL (UP TO 125 MG) IM Intramuscular Sep 21, 2018 Administered SOCIAL HISTORY Never Assessed REASON FOR VISIT Dizziness, PT reports he has been having nausea lately and does not see his neurologist 09/29. . -harish TOPETE, PT fell 18 feet and was rushed to [facility] on , PT had a concussion, 2 small brain bleeds, broken ribs that punctured his lungs, as well as a broken left hip. PT was hospitalized in [place] for 10 days to surgery. -Harish TOPETE, PT had a wound care nurse for a week or so. No longer needed -Harish TOPETE PLAN OF CARE VITAL SIGNS Height 74 in 2018-09-21 Weight 173.5 lbs 2018-09-21 Temperature 98.4 degrees Fahrenheit 2018-09-21 Heart Rate 78 bpm 2018-09-21 Respiratory Rate 20 2018-09-21 BMI 22.27 kg/m2 2018-09-21 Blood pressure systolic 142 mmHg 2018-09-21 Blood pressure diastolic 80 mmHg 2018-09-21 MEDICATIONS Medication Instructions Dosage Frequency Start Date End Date Duration Status Levocetirizine Dihydrochloride 5 MG Orally Once a day 1 tablet in the evening 24h Sep, 30 day(s) Active PredniSONE 20 MG Orally Once a day 2 tablets 24h Sep, 05 days Active Ibuprofen 800 MG Orally Three times a day 1 tablet with food or milk as needed 8h Mar, Active Lisinopril 5 MG Orally Once a day 2 tablets 24h Apr, 90 days Active Meclizine HCl 25 MG Orally 4 times a day 1 tablet as needed 6h Sep, Active ProAir HFA 108 (90 Base) MCG/ACT Inhalation every 6 hrs 2 puffs as needed 6h Jan, Not-Taking Symbicort 160-4.5 MCG/ACT Inhalation Twice a day 2 puffs 12h Not- Taking Cyclobenzaprine HCl 10 mg Orally at bedtime 1 tab Mar, Active Hydrocodone-Acetaminophen 10-325 MG Orally every 6 hrs 1 tablet as needed 6h Active RESULTS No Results PROCEDURES Procedure Date Ordered Result Body Site SOLUMEDROL (UP TO 125 MG) Sep 21, 2018 THER/PROPH/DIAG INJ, SC/IM Sep 21, 2018 INSTRUCTIONS MEDICATIONS ADMINISTERED No Known Medications MEDICAL (GENERAL) HISTORY Type Description Date Medical History hypertension Medical History insomnia Medical History bilateral ear ringing since 2013 Medical History COPD Surgical History angioplasty Surgical History christin-rectal cyst removed Surgical History Left hip surgery -Renzo placed 07/2018 Hospitalization History [facility] x 10 days. 07/2018
--- OUTSIDE RECORDS SUMMARY | 2018-10-01 10:10 | XMS REPORT ---
Author Author TRU CARTER [facility] Address [address] [place] [address] Care Team Providers Care Forge Helper Name Role Phone TRU CARTER Unavailable PROBLEMS Type Condition ICD9-CM Code GPQ40-SC Code Onset Dates Condition Status SNOMED Code Problem Muscle tension headache G44.209 Active 203885606 Problem Benign prostatic hyperplasia with lower urinary tract symptoms N40.1 Active 305852291 Problem Chronic obstructive pulmonary disease, unspecified COPD type J44.9 Active 59987954 Problem Hypertension I10 Active 69429817 ALLERGIES No Information ENCOUNTERS Encounter Location Date Diagnosis [place] [address] [address] May, Hypertension I10 [place] [address] [address]- 8896 Mar, Muscle tension headache G44.209 and Hypertension I10 [place] [address] 8[address]16- 7[address] Jan, Hypertension I10 and Chronic obstructive pulmonary disease, unspecified COPD type J44.9 [place] [address] [place] [id number] [place] [address] 65133- 8392 Jan, Hypertension I10 [place] [address] 00204- 8955 Oct, Dyspnea on exertion R06.09 ; Essential (primary) hypertension I10 ; Claudication of both lower extremities I73.9 and Lung nodule R91.1 [place] [address] [address]- 49[address] 05 Sep, 2017 Encounter for immunization Z23 ; Hypertension I10 ; Benign prostatic hyperplasia with lower urinary tract symptoms N40.1 and Chronic obstructive pulmonary disease, unspecified COPD type J44.9 [place] [address] [place] [id number] [place] [address] 33107- 7746 Aug, Hypertension I10 and Nocturia R35.1 [place] [address] 80522- 4654 Jun, Dyspnea on exertion R06.09 ; Essential (primary) hypertension I10 ; Claudication of both lower extremities I73.9 and Lung nodule R91.[address] [address]65- [address] May, Chest discomfort R07.89 ; Dyspnea on exertion R06.09 ; Heart palpitations R00.2 ; Hypertension I10 and Tobacco use Z72.[address] [address]21- 2857 May, Flank pain R10.9 ; Fever, unspecified fever cause R50.9 and Diarrhea, unspecified type R19.[address] [address]146- 3944 Apr, Hypertension I10 ; Nocturia R35.1 ; Other chest pain R07.89 and Chronic obstructive pulmonary disease, unspecified COPD type J44.9 [place] [address] 17473- 1524 Jan, Nocturia R35.1 ; Hypertension I10 and Screening cholesterol level Z13.[address] 47663- 6643 Jan, Nocturia R35.1 ; Incontinence of feces R15.9 ; Hypertension I10 and Screening cholesterol level Z13.[address] 21473- 9976 Apr, Hypertension I10 [address] 80382- 8450 Mar, Essential (primary) hypertension I10 [address] [address]26- 8485 Oct, Hypertension I10 ; Back pain M54.9 ; Malaise R53.81 ; Nocturia R35.1 and Incontinence of feces R15.9 [facility] [address] [place] [id number] [place] [address] 63144- 9410 Sep, Hypertension I10 ; Malaise R53.81 ; Nocturia R35.1 and Back pain M54.9 [facility] [address] [place] [id number] [place] [address] 35263- 0595 Apr, Essential hypertension, benign 401.1 and Environmental allergies V15.09 [facility] [address] [place] [id number] [place] [address] 83707- 2494 Apr, [facility] [address] [place] [id number] [place] [address] 16502- 8987 Apr, [facility] [address] [place] [id number] [place] [address] 37003- 4509 Jan, [facility] [address] [place] [id number] [place] [address] 07044- 3123 Jan, [facility] [address] [place] [id number] [place] [address] 78654- 4036 Oct, [facility] [address] [place] [id number] [place] [address] 04884- 4267 Oct, [facility] [address] [place] [id number] [place] [address] 73822- 8281 Oct, [facility] [address] [place] [id number] [place] [address] [id number]- 9028 Oct, [facility] [address] [place] [id number] [place] [address] 61816- 5952 Sep, [facility] [address] [place] [id number] [place] [address] [id number]- 7297 Sep, [facility] [id number] [place] [address] 561104- 2753 Sep, [facility] [place] [facility] [address] [id number] [place] [address]- 8746 15 Sep, 2014 [facility] [place] [facility] [address] [id number] [place] [address]- 7047 05 Jun, 2013 [facility] [place] [facility] [address] [id number] [place] [address]- 7096 05 Jun, 2013 [facility] [place] [facility] [address] [id number] [place] [address]- 4421 02 Jun, 2013 [facility] [place] [facility] [address] [id number] [place] [address]- 8520 Jun, 2013 [facility] [place] [facility] [address] [id number] [place] [address]- 3735 Jun, 2013 [facility] [place] [facility] [address] [id number] [place] [address]- 5607 Jun, 2013 [facility] [place] [facility] [address] [id number] [place] [address]- 2295 Dec, [facility] [place] [facility] [address] [id number] [place] [address]- 3299 Dec, [facility] [place] [facility] [address] [id number] [place] [address]- 0809 Aug, [facility] [place] [facility] [address] [id number] [place] [address]- 0371 Aug, [facility] [place] [facility] [address] [id number] [place] [address]- 5857 14 Dec, 2012 [facility] [place] [facility] [address] [id number] [place] [address]- 3382 04 Dec, 2012 [facility] [place] [facility] [address] [id number] [place] [address]- 9625 Dec, [facility] [place] [facility] [address] [id number] [place] [address]- 2443 28 Nov, 2012 [facility] [place] [facility] [address] [id number], [place] [address]- 8406 Nov, [facility] [address] [facility] [id number] [address]- 8466 Nov, [facility] [address] [address] 2546 Nov, [facility] [address] [id number] [address]- 5036 Oct, [facility] [address] [id number] [address] 2546 May, [facility] [address] [id number] [address]- 7526 May, [facility] [address], [place] [address]- 8172 Apr, IMMUNIZATIONS No Known Immunizations SOCIAL HISTORY Never Assessed REASON FOR VISIT Repository request PLAN OF CARE VITAL SIGNS MEDICATIONS Medication Instructions Dosage Frequency Start Date End Date Duration Status Lisinopril 5 MG Orally Once a day 2 tablets 24h Apr, 90 days Active RESULTS No Results PROCEDURES No Known procedures INSTRUCTIONS MEDICATIONS ADMINISTERED No Known Medications MEDICAL (GENERAL) HISTORY Type Description Date Medical History hypertension Medical History insomnia Medical History bilateral ear ringing since 2013 Medical History COPD Surgical History angioplasty Surgical History christin-rectal cyst removed
--- OUTSIDE RECORDS SUMMARY | 2018-10-01 10:10 | XMS REPORT ---
Author Author TRU CARTER [facility] Address [address] [place] [address] Care Team Providers Care Drive Thru Order Taker Name Role Phone TRU CARTRE Unavailable PROBLEMS Type Condition ICD9-CM Code DVR04-FX Code Onset Dates Condition Status SNOMED Code Problem Muscle tension headache G44.209 Active 222707225 Problem Benign prostatic hyperplasia with lower urinary tract symptoms N40.1 Active 907865156 Problem Chronic obstructive pulmonary disease, unspecified COPD type J44.9 Active 46737690 Problem Hypertension I10 Active 24635191 ALLERGIES No Known Allergies ENCOUNTERS Encounter Location Date Diagnosis [place] [address] [address]- [address] May, Hypertension I10 [address] [address]- 7[address] Mar, Muscle tension headache G44.209 and Hypertension I10 [address] [address]14- 2627 Jan, Hypertension I10 and Chronic obstructive pulmonary disease, unspecified COPD type J44.9 [place] [address] [place] [id number] [place] [address] 95746- 3287 Jan, Hypertension I10 [address] 27776- 3992 Oct, Dyspnea on exertion R06.09 ; Essential (primary) hypertension I10 ; Claudication of both lower extremities I73.9 and Lung nodule R91.1 [place] [address] 59341- 3676 05 Sep, 2017 Encounter for immunization Z23 ; Hypertension I10 ; Benign prostatic hyperplasia with lower urinary tract symptoms N40.1 and Chronic obstructive pulmonary disease, unspecified COPD type J44.9 [place] [address] [place] [id number] [place] [address] 09833- 8840 Aug, Hypertension I10 and Nocturia R35.1 [place] [address] [place] [id number] [place] [address] 97745- 3191 Jun, Dyspnea on exertion R06.09 ; Essential (primary) hypertension I10 ; Claudication of both lower extremities I73.9 and Lung nodule R91.[address] 19194- 9072 May, Chest discomfort R07.89 ; Dyspnea on exertion R06.09 ; Heart palpitations R00.2 ; Hypertension I10 and Tobacco use Z72.[address] 83418- 8478 May, Flank pain R10.9 ; Fever, unspecified fever cause R50.9 and Diarrhea, unspecified type R19.7 [place] [id number] [place] [address] 92883- 8280 Apr, Hypertension I10 ; Nocturia R35.1 ; Other chest pain R07.89 and Chronic obstructive pulmonary disease, unspecified COPD type J44.9 [place] [address] [place] [id number] [place] [address] 96150- 5462 Jan, Nocturia R35.1 ; Hypertension I10 and Screening cholesterol level Z13.220 [place] [id number] [place] [address] 23164- 3588 Jan, Nocturia R35.1 ; Incontinence of feces R15.9 ; Hypertension I10 and Screening cholesterol level Z13.[address] 22174- 0182 Apr, Hypertension I10 [address] 78877- 2349 Mar, Essential (primary) hypertension I10 [address] 14224- 8115 Oct, Hypertension I10 ; Back pain M54.9 ; Malaise R53.81 ; Nocturia R35.1 and Incontinence of feces R15.9 [facility] [address] [place] [id number] [place] [address] 56458- 5760 Sep, Hypertension I10 ; Malaise R53.81 ; Nocturia R35.1 and Back pain M54.9 [facility] [address] [place] [id number] [place] [address] 72585- 1020 Apr, Essential hypertension, benign 401.1 and Environmental allergies V15.09 [facility] [address] [place] [id number] [place] [address] 88290- 0309 Apr, [facility] [address] [place] [id number] [place] [address] 78217- 2571 Apr, [facility] [address] [place] [id number] [place] [address] 53821- 9968 Jan, [facility] [address] [place] [id number] [place] [address] 66447- 5962 Jan, [facility] [address] [place] [id number] [place] [address] 78180- 9120 Oct, [facility] [address] [place] [id number] [place] [address] 45195- 5879 Oct, [facility] [address] [place] [id number] [place] [address] 72736- 0418 Oct, [facility] [address] [place] [id number] [place] [address] 38103- 9993 Oct, [facility] [address] [place] [id number] [place] [address] 004976- 3435 Sep, [facility] [address] [place] [id number] [place] [address] 058025- 8099 Sep, [facility] [address] [place] [id number] [place] [address] 82921- 9297 Sep, [facility] [place] [facility] [address] [id number] [place] [address]- 4077 15 Sep, 2014 [facility] [place] [facility] [address] [id number] [place] [address]- 7103 05 Jun, 2013 [facility] [place] [facility] [address] [id number] [place] [address]- 3980 05 Jun, 2013 [facility] [place] [facility] [address] [id number] [place] [address]- 2753 02 Jun, 2013 [facility] [place] [facility] [address] [id number] [place] [address]- 0380 02 Jun, 2013 [facility] [place] [facility] [address] [id number] [place] [address]- 7430 Jun, [facility] [place] [facility] [address] [id number] [place] [address]- 7357 Jun, [facility] [place] [facility] [address] [id number] [place] [address]- 5123 Dec, [facility] [place] [facility] [address] [id number] [place] [address]- 3183 Dec, [facility] [place] [facility] [address] [id number] [place] [address]- 9507 Aug, [facility] [place] [facility] [address] [id number] [place] [address]- 3323 Aug, [facility] [place] [facility] [address] [id number] [place] [address]- 0559 Dec, [facility] [place] [facility] [address] [id number] [place] [address]- 3613 04 Dec, 2012 [facility] [place] [facility] [address] [id number] [place] [address]- 5941 Dec, [facility] [place] [facility] [address] [id number] [place] [address]- 3467 28 Nov, 2012 [facility] [place] [facility] [address] [id number], [place] [address]- 2546 Nov, [facility] [address] [place] [id number], [place] [address]- 9226 Nov, [facility] [address] [place] [id number], [place] [address]- 4926 Nov, [facility] [address] [place] [id number], [place] [address]- 3656 Oct, [facility] [address], [place] [address]- 9476 May, [facility] [address], [place] [address]- 0946 May, [facility] [address], [place] [address]- 1530 Apr, IMMUNIZATIONS No Known Immunizations SOCIAL HISTORY Never Assessed REASON FOR VISIT Headache, constant x 3 days----Kayleen, PHQ2, Audit C PLAN OF CARE Activity Details Follow Up 3 Months Reason: VITAL SIGNS Height 74 in 2018-03-31 Weight 170 lbs 2018-03-31 Temperature 98.2 degrees Fahrenheit 2018-03-31 Heart Rate 80 bpm 2018-03-31 Respiratory Rate 20 2018-03-31 BMI 21.82 kg/m2 2018-03-31 Blood pressure systolic 126 mmHg 2018-03-31 Blood pressure diastolic 70 mmHg 2018-03-31 MEDICATIONS Medication Instructions Dosage Frequency Start Date End Date Duration Status Lisinopril 10 mg Orally Once a day 1 tablet 24h Apr, 90 days Active Cyclobenzaprine HCl 10 mg Orally at bedtime 1 tab Mar, Active Ibuprofen 800 MG Orally Three times a day 1 tablet with food or milk as needed 8h Mar, Active ProAir HFA 108 (90 Base) MCG/ACT Inhalation every 6 hrs 2 puffs as needed 6h Jan, Active Symbicort 160-4.5 MCG/ACT Inhalation Twice a day 2 puffs 12h Active RESULTS No Results PROCEDURES No Known procedures INSTRUCTIONS MEDICATIONS ADMINISTERED No Known Medications MEDICAL (GENERAL) HISTORY Type Description Date Medical History hypertension Medical History insomnia Medical History bilateral ear ringing since 2013 Medical History COPD Surgical History angioplasty Surgical History christin-rectal cyst removed
--- OUTSIDE RECORDS SUMMARY | 2018-10-01 10:11 | XMS REPORT ---
Author Author TRU CARTER Organization [facility] Address [address] [place] [address] Care Team Providers Care Teleprinter Installer Name Role Phone TRU CARTER Unavailable PROBLEMS Type Condition ICD9-CM Code MTV92-QT Code Onset Dates Condition Status SNOMED Code Problem Muscle tension headache G44.209 Active 481567995 Problem Benign prostatic hyperplasia with lower urinary tract symptoms N40.1 Active 489398635 Problem Chronic obstructive pulmonary disease, unspecified COPD type J44.9 Active 53024850 Problem Hypertension I10 Active 49626617 ALLERGIES No Information ENCOUNTERS Encounter Location Date Diagnosis [place] [address] [address]- 9517 14 Mar, 2018 Muscle tension headache G44.209 and Hypertension I10 [place] [id number] [place] [address] 95818- 8336 Jan, Hypertension I10 and Chronic obstructive pulmonary disease, unspecified COPD type J44.9 [place] [address] [place] [id number] [place] [address] 59119- 0163 Jan, Hypertension I10 [place] [id number] [place] [address] 98492- 7281 Oct, Dyspnea on exertion R06.09 ; Essential (primary) hypertension I10 ; Claudication of both lower extremities I73.9 and Lung nodule R91.1 [place] [address] 10828- 0836 05 Sep, 2017 Encounter for immunization Z23 ; Hypertension I10 ; Benign prostatic hyperplasia with lower urinary tract symptoms N40.1 and Chronic obstructive pulmonary disease, unspecified COPD type J44.9 [place] [address] [place] [id number] [place] [address] 79892- 8436 02 Aug, 2017 Hypertension I10 and Nocturia R35.1 [place] [address] [place] [id number] [place] [address] 20463- 4765 13 Jun, 2017 Dyspnea on exertion R06.09 ; Essential (primary) hypertension I10 ; Claudication of both lower extremities I73.9 and Lung nodule R91.1 [place] [address] [place] [id number] [place] [address] 52150- 1446 09 May, 2017 Chest discomfort R07.89 ; Dyspnea on exertion R06.09 ; Heart palpitations R00.2 ; Hypertension I10 and Tobacco use Z72.0 [place] [address] [place] [id number] [place] [address] 75750- 5655 May, Flank pain R10.9 ; Fever, unspecified fever cause R50.9 and Diarrhea, unspecified type R19.7 [place] [id number] [place] [address] 59044- 1635 Apr, Hypertension I10 ; Nocturia R35.1 ; Other chest pain R07.89 and Chronic obstructive pulmonary disease, unspecified COPD type J44.9 [place] [address] [place] [id number] [place] [address] 15558- 8283 Jan, Nocturia R35.1 ; Hypertension I10 and Screening cholesterol level Z13.220 [place] [address] [place] [id number] [place] [address] 59638- 1372 05 Jan, 2017 Nocturia R35.1 ; Incontinence of feces R15.9 ; Hypertension I10 and Screening cholesterol level Z13.220 [place] [address] [place] [id number] [place] [address] 39794- 1799 Apr, Hypertension I10 [address] [address]- 1097 Mar, Essential (primary) hypertension I10 [place] [address] [place] [id number] [place] [address] 87684- 9698 Oct, Hypertension I10 ; Back pain M54.9 ; Malaise R53.81 ; Nocturia R35.1 and Incontinence of feces R15.9 [facility] [address] [place] [address] 63739- 1496 29 Sep, 2015 Hypertension I10 ; Malaise R53.81 ; Nocturia R35.1 and Back pain M54.9 [facility] [address] [place] [id number] [place] [address] 46709- 7279 27 Apr, 2015 Essential hypertension, benign 401.1 and Environmental allergies V15.09 [facility] [address] [place] [id number] [place] [address] 30854- 0545 17 Apr, 2015 [facility] [address] [place] [id number] [place] [address] 33981- 8257 Apr, [facility] [address] [place] [id number] [place] [address] 84402- 6228 Jan, [facility] [address] [place] [id number] [place] [address] 15020- 0723 Jan, [facility] [address] [place] [id number] [place] [address] 65685- 3997 Oct, [facility] [address] [place] [id number] [place] [address] 89436- 6950 Oct, [facility] [address] [place] [id number] [place] [address] 45772- 8549 Oct, [facility] [address] [place] [address] 54747- 9912 Oct, [facility] [address] [place] [id number] [place] [address] 89027- 0693 Sep, [facility] [address] [place] [id number] [place] [address] 89126- 9960 Sep, [facility] [address] [place] [id number] [place] [address] 70443- 0736 Sep, [facility] [address] [place] [id number] [place] [address] 24125- 8945 Sep, [facility] [address] [id number] [place] [address]- 3366 05 Sep, 2013 [facility] [place] [facility] [address] [id number] [place] [address]- 8385 05 Jun, 2013 [facility] [place] [facility] [address] [id number] [place] [address]- 1996 02 Jun, 2013 [facility] [place] [facility] [address] [id number] [place] [address]- 4286 02 Jun, 2013 [facility] [place] [facility] [address] [id number] [place] [address]- 4185 02 Jun, 2013 [facility] [place] [facility] [address] [id number] [place] [address]- 8016 02 Jun, 2013 [facility] [place] [facility] [address] [id number] [place] [address]- 8174 20 Dec, 2013 [facility] [place] [facility] [address] [id number] [place] [address]- 9634 20 Dec, 2013 [facility] [place] [facility] [address] [id number] [place] [address]- 8982 07 Aug, 2013 [facility] [place] [facility] [address] [id number] [place] [address]- 3260 07 Aug, 2013 [facility] [place] [facility] [address] [id number] [place] [address]- 4405 14 Dec, 2012 [facility] [place] [facility] [address] [id number] [place] [address]- 5612 04 Dec, 2012 [facility] [place] [facility] [address] [id number] [place] [address]- 2020 Dec, [facility] [place] [facility] [address] [id number] [place] [address]- 4026 28 Nov, 2012 [facility] [place] [facility] [address] [id number] [place] [address]- 1116 13 Nov, 2012 [facility] [place] [facility] [address] [id number] [place] [address]- 6409 Nov, [facility] [address] [facility] [id number] [place] [address]- 2546 Nov, [facility] [place] [address] [facility] [id number], [place] [address] Oct, [facility] [place] [address] [facility] [id number], [place] [address] May, [facility] [place] [address] [facility] [id number], [place] [address] May, [facility] [place] [address] [facility] [id number], [place] [address] Apr, IMMUNIZATIONS No Known Immunizations SOCIAL HISTORY Never Assessed REASON FOR VISIT Repository Medication PLAN OF CARE VITAL SIGNS MEDICATIONS Medication Instructions Dosage Frequency Start Date End Date Duration Status Lisinopril 10 mg Orally Once a day 1 tablet 24h Apr, 90 days Active RESULTS No Results PROCEDURES No Known procedures INSTRUCTIONS MEDICATIONS ADMINISTERED No Known Medications MEDICAL (GENERAL) HISTORY Type Description Date Medical History hypertension Medical History insomnia Medical History bilateral ear ringing since 2013 Medical History COPD Surgical History angioplasty Surgical History christin-rectal cyst removed
--- OUTSIDE RECORDS SUMMARY | 2018-10-01 10:11 | XMS REPORT ---
Author Author Guera LI Organization [facility] [place] Address [address] [place] [address] Care Team Providers Care Caramel Maker Name Role Phone erickaWilliamINNOSKA LI Unavailable PROBLEMS Type Condition ICD9-CM Code JXV97-OQ Code Onset Dates Condition Status SNOMED Code Problem Hypertension I10 Active 77146802 Problem Malaise R53.81 Active 749445112 Problem Nocturia R35.1 Active 314562814 Problem Back pain M54.9 Active 480154985 Problem Essential (primary) hypertension I10 Active 60125235 Problem Lung nodule R91.1 Active 707188389 Problem Chronic obstructive pulmonary disease, unspecified COPD type J44.9 Active 70062937 Problem Incontinence of feces R15.9 Active 82246168 Problem Claudication of both lower extremities I73.9 Active 594170614 Problem Benign prostatic hyperplasia with lower urinary tract symptoms N40.1 Active 614934978 ALLERGIES No Known Allergies ENCOUNTERS Encounter Location Date Diagnosis [facility] [place] [address] [place] [address] 34306- 3258 Oct, Dyspnea on exertion R06.09 ; Essential (primary) hypertension I10 ; Claudication of both lower extremities I73.9 and Lung nodule R91.1 [facility] [place] [address] [place] [address] 97466- 1085 05 Sep, 2017 Encounter for immunization Z23 ; Hypertension I10 ; Benign prostatic hyperplasia with lower urinary tract symptoms N40.1 and Chronic obstructive pulmonary disease, unspecified COPD type J44.9 [facility] [place] [address] [place] [address] 21418- 4141 02 Aug, 2017 Hypertension I10 and Nocturia R35.1 [facility] [place] [address] [place] [address] 42461- 3061 13 Jun, 2017 Dyspnea on exertion R06.09 ; Essential (primary) hypertension I10 ; Claudication of both lower extremities I73.9 and Lung nodule R91.[address] [address]- [address] May, Chest discomfort R07.89 ; Dyspnea on exertion R06.09 ; Heart palpitations R00.2 ; Hypertension I10 and Tobacco use Z72.[address] 80645- 1587 May, Flank pain R10.9 ; Fever, unspecified fever cause R50.9 and Diarrhea, unspecified type R19.[address] 08084- 5120 Apr, Hypertension I10 ; Nocturia R35.1 ; Other chest pain R07.89 and Chronic obstructive pulmonary disease, unspecified COPD type J44.[address] 53[address]- 2060 Jan, Nocturia R35.1 ; Hypertension I10 and Screening cholesterol level Z13.[address] 10693- 8968 Jan, Nocturia R35.1 ; Incontinence of feces R15.9 ; Hypertension I10 and Screening cholesterol level Z13.[address] 01384- 6228 Apr, Hypertension I10 [address] 45265- 6820 Mar, Essential (primary) hypertension I10 [address] 32569- 2998 Oct, Hypertension I10 ; Back pain M54.9 ; Malaise R53.81 ; Nocturia R35.1 and Incontinence of feces R15.[address] 20898- 4914 Sep, Hypertension I10 ; Malaise R53.81 ; Nocturia R35.1 and Back pain M54.9 [facility] [place] [id number] [place] [address] 62985- 3607 Apr, Essential hypertension, benign 401.1 and Environmental allergies V15.09 [facility] [place] [id number] [place] [address] 14701- 4199 Apr, [facility] [place] [address] [address]- 78[address] Apr, [facility] [place] [id number] [place] [address] 64746- 3605 Jan, [facility] [place] [address] 28245- 4402 Jan, [facility] [place] [id number] [place] [address] 85592- 8763 Oct, [facility] [place] [id number] [place] [address] 31215- 7151 Oct, [facility] [place] [id number] [place] [address] 45361- 8121 Oct, [facility] [place] [id number] [place] [address] 20431- 9446 Oct, [facility] [place] [id number] [place] [address] 74964- 7189 Sep, [facility] [place] [id number] [place] [address] 00055- 0198 Sep, [facility] [place] [id number] [place] [address] 23902- 4583 Sep, [facility] [place] [id number] [place] [address] 45823- 3588 Sep, [facility] [place] [id number] [place] [address] 76137- 1698 05 Jun, 2014 [facility] [place] [address] [place] [address] 8052 05 Jun, 2013 [facility] [place] [facility] [address] [id number] [place] [address]- 0586 02 Jun, 2013 [facility] [place] [facility] [address] [id number] [place] [address] 02 Jun, 2013 [facility] [place] [facility] [address] [id number] [place] [address]- 2066 02 Jun, 2013 [facility] [place] [facility] [address] [id number] [place] [address]- 8943 02 Jun, 2013 [facility] [place] [facility] [address] [id number] [place] [address]- 3916 Dec, [facility] [place] [facility] [address] [id number] [place] [address]- 2330 Dec, [facility] [place] [facility] [address] [id number] [place] [address]- 1777 Aug, [facility] [place] [facility] [address] [id number] [place] [address]- 1424 Aug, [facility] [place] [facility] [address] [id number] [place] [address]- 9031 14 Dec, 2012 [facility] [place] [facility] [address] [facility] [id number] [place] [address]- 1951 Dec, [facility] [place] [facility] [address] [id number] [place] [address]- 8257 Dec, [facility] [place] [facility] [address] [id number] [place] [address]- 3212 28 Nov, 2012 [facility] [place] [facility] [address] [id number] [place] [address]- 4725 13 Nov, 2012 [facility] [place] [facility] [address] [id number] [place] [address]- 7706 05 Nov, 2012 [facility] [place] [facility] [address] [id number] [place] [address]- 9505 Nov, [facility] [place] [address] [facility] [id number], [place] [address]- 2546 Oct, [facility] [place] [address] [facility] [id number], [place] [address]- 2546 May, [facility] [place] [address] [facility] [id number], [place] [address]- 2546 May, [facility] [place] [address] [facility] [id number][place] [address]- 2546 Apr, IMMUNIZATIONS Vaccine Route Administration Date Status DEXAMETHASONE 4MG/ML (PER 1 MG) IM Intramuscular May 06, 2017 Administered DEPO MEDROL 40 MG/ML IM Intramuscular May 06, 2017 Administered SOCIAL HISTORY Never Assessed REASON FOR VISIT Hospital f/u - Went to on Wednesday with chest pain that was knocking him to the floor. Went by ambulance was at 30 beats per minute. Low bp 107/60. States that they did not get a lot of answers at the hospital. Did EKG and Xray of his chest. Supposedly everything came back normal. Today he states sternum pain feels like someone is holding their thumb pressing on his chest. Feels flutters and makes him think his heart is skipping a beat. Sternum pain is radiating clear up the chest into the neck and shoulder on left side. Is having these episodes 1-2 per week lasting about 30 seconds to a minute and a half. States he bear hugs his chest and he states that helps. He is a heavy smoker and states his chest is tight and having coughing fits where he can not catch his breath. States that he has trouble breathing sometimes. states during sleep he stops breathing at different intervals. - Stephan TOPETE PLAN OF CARE Activity Details Follow Up 4 Weeks Reason:Santosh VITAL SIGNS Height 74 in 2017-05-06 Weight 175.0 lbs 2017-05-06 Temperature 98.4 degrees Fahrenheit 2017-05-06 Heart Rate 107 bpm 2017-05-06 Respiratory Rate 22 2017-05-06 Oximetry 97 % 2017-05-06 BMI 22.47 kg/m2 2017-05-06 Blood pressure systolic 137 mmHg 2017-05-06 Blood pressure diastolic 70 mmHg 2017-05-06 MEDICATIONS Medication Instructions Dosage Frequency Start Date End Date Duration Status Lisinopril 10 mg Orally Once a day 1 tablet 24h Apr, 90 days Active Tamsulosin HCl 0.4 MG Orally Once a day 1 capsule 24h Apr,Jul 90 days Active Lisinopril-Hydrochlorothiazide 20-12.5 MG Orally Once a day 1 tablet 24h Oct, 30 Active Proventil HFA 108 (90 Base) MCG/ACT Inhalation every 4 hrs 2 puffs as needed 4h Apr, Active RESULTS No Results PROCEDURES Procedure Date Ordered Result Body Site MEASURE BLOOD OXYGEN LEVEL May 06, 2017 THER/PROPH/DIAG INJ, SC/IM May 06, 2017 DEXAMETHASONE 4MG/ML (PER 1 MG) May 06, 2017 DEPO MEDROL 40 MG/ML May 06, 2017 INSTRUCTIONS MEDICATIONS ADMINISTERED No Known Medications MEDICAL (GENERAL) HISTORY Type Description Date Medical History hypertension Medical History insomnia Medical History bilateral ear ringing since 2013 Medical History COPD Surgical History angioplasty Surgical History christin-rectal cyst removed
--- OUTSIDE RECORDS SUMMARY | 2018-10-01 10:11 | XMS REPORT ---
Author Author TRU CARTER Organization [facility] [place] Address [address] [place] [address] Care Team Providers Care Warehouse Order Picker Name Role Phone TRU CARTER Unavailable PROBLEMS Type Condition ICD9-CM Code SBM93-CV Code Onset Dates Condition Status SNOMED Code Problem Muscle tension headache G44.209 Active 974344344 Problem Benign prostatic hyperplasia with lower urinary tract symptoms N40.1 Active 673458375 Problem Chronic obstructive pulmonary disease, unspecified COPD type J44.9 Active 84962718 Problem Hypertension I10 Active 54895839 ALLERGIES No Known Allergies ENCOUNTERS Encounter Location Date Diagnosis [place] [address] [address] 8[address] Mar, Muscle tension headache G44.209 and Hypertension I10 [place] [id number] [place] [address] 32769- 0397 Jan, Hypertension I10 and Chronic obstructive pulmonary disease, unspecified COPD type J44.9 [place] [address] [place] [address] [id number] [place] [address] 56772- 0562 Jan, Hypertension I10 [place] [address] [place] [address] [id number] [place] [address] 49678- 7082 10 Oct, 2017 Dyspnea on exertion R06.09 ; Essential (primary) hypertension I10 ; Claudication of both lower extremities I73.9 and Lung nodule R91.1 [place] [address] [address]60- 0166 05 Sep, 2017 Encounter for immunization Z23 ; Hypertension I10 ; Benign prostatic hyperplasia with lower urinary tract symptoms N40.1 and Chronic obstructive pulmonary disease, unspecified COPD type J44.9 [place] [address] [place] [id number] [place] [address] 47226- 7559 02 Aug, 2017 Hypertension I10 and Nocturia R35.1 [place] [address] [place] [address] [id number] [place] [address] 17049- 1618 13 Jun, 2017 Dyspnea on exertion R06.09 ; Essential (primary) hypertension I10 ; Claudication of both lower extremities I73.9 and Lung nodule R91.1 [place] [address] [place] [id number] [place] [address] 19888- 4382 09 May, 2017 Chest discomfort R07.89 ; Dyspnea on exertion R06.09 ; Heart palpitations R00.2 ; Hypertension I10 and Tobacco use Z72.0 [place] [address] [place] [id number] [place] [address] 33597- 0226 May, Flank pain R10.9 ; Fever, unspecified fever cause R50.9 and Diarrhea, unspecified type R19.7 [place] [id number] [place] [address] 20821- 6313 Apr, Hypertension I10 ; Nocturia R35.1 ; Other chest pain R07.89 and Chronic obstructive pulmonary disease, unspecified COPD type J44.9 [place] [address] [place] [id number] [place] [address] 64437- 3526 07 Jan, 2017 Nocturia R35.1 ; Hypertension I10 and Screening cholesterol level Z13.220 [place] [address] [place] [id number] [place] [address] 31223- 4547 05 Jan, 2017 Nocturia R35.1 ; Incontinence of feces R15.9 ; Hypertension I10 and Screening cholesterol level Z13.220 [place] [address] [place] [id number] [place] [address] 07232- 0934 Apr, Hypertension I10 [address] [address]- 2454 Mar, Essential (primary) hypertension I10 [place] [address] [place] [id number] [place] [address] 97050- 2621 Oct, Hypertension I10 ; Back pain M54.9 ; Malaise R53.81 ; Nocturia R35.1 and Incontinence of feces R15.9 [facility] [place] [id number] [place] [address] 53849- 0131 29 Sep, 2015 Hypertension I10 ; Malaise R53.81 ; Nocturia R35.1 and Back pain M54.9 [facility] [place] [address] [id number] [place] [address] 78757- 7251 Apr, Essential hypertension, benign 401.1 and Environmental allergies V15.09 [facility] [place] [address] [place] [id number] [place] [address] 69702- 5362 Apr, [facility] [place] [address] [id number] [place] [address] 62133- 9212 Apr, [facility] [place] [id number] [place] [address] 14757- 8565 Jan, [facility] [place] [id number] [place] [address] 38850- 3580 Jan, [facility] [place] [id number] [place] [address] 97668- 7322 Oct, [facility] [place] [id number] [place] [address] 06777- 5215 Oct, [facility] [place] [id number] [place] [address] 74692- 6971 Oct, [facility] [place] [address] [place] [address] 99209- 9871 Oct, [facility] [place] [address] [place] [address] [id number] [place] [address] 53579- 7811 Sep, [facility] [place] [address] [id number] [place] [address] 87286- 4529 Sep, [facility] [place] [address] [place] [id number] [place] [address] 39516- 6677 Sep, [facility] [place] [address] [place] [address] [id number] [place] [address] 53101- 0967 Sep, [facility] [place] [facility] [address] [id number] [place] [address]- 7991 05 Sep, 2013 [facility] [place] [facility] [address] [id number] [place] [address]- 7860 05 Sep, 2013 [facility] [place] [facility] [address] [id number] [place] [address]- 8676 02 Jun, 2013 [facility] [place] [facility] [address] [id number] [place] [address]- 1736 02 Jun, 2013 [facility] [place] [facility] [address] [id number] [place] [address]- 6611 02 Jun, 2013 [facility] [place] [facility] [address] [id number] [place] [address]- 1890 02 Jun, 2013 [facility] [place] [facility] [address] [id number] [place] [address]- 6329 Dec, [facility] [place] [facility] [address] [id number] [place] [address]- 8954 Dec, [facility] [place] [facility] [address] [id number] [place] [address]- 3094 Aug, [facility] [place] [facility] [address] [id number] [place] [address]- 5617 Aug, [facility] [place] [facility] [address] [id number] [place] [address]- 4580 14 Dec, 2012 [facility] [place] [facility] [address] [id number] [place] [address]- 2713 04 Dec, 2012 [facility] [place] [facility] [address] [id number] [place] [address]- 7384 Dec, [facility] [place] [facility] [address] [id number] [place] [address]- 2665 28 Nov, 2012 [facility] [place] [facility] [address] [id number] [place] [address]- 9542 13 Nov, 2012 [facility] [place] [facility] [address] [id number] [place] [address]- 4469 Nov, [facility] [place] [address] [facility] [id number] [place] [address]- 2546 Nov, [facility] [place] [address] [facility] [id number] [place] [address]- 2546 Oct, [facility] [place] [address] [facility] [id number] [place] [address]- 2546 May, [facility] [place] [address] [facility] [id number] [place] [address]- 2546 May, [facility] [place] [address] [facility] [id number] [place] [address]- 5626 Apr, IMMUNIZATIONS No Known Immunizations SOCIAL HISTORY Never Assessed REASON FOR VISIT Hypertension WB-MA PLAN OF CARE Activity Details Follow Up 6 Months Reason: VITAL SIGNS Height 74 in 2018-02-04 Weight 168 lbs 2018-02-04 Temperature 98.2 degrees Fahrenheit 2018-02-04 Heart Rate 78 bpm 2018-02-04 Respiratory Rate 18 2018-02-04 Oximetry on room air:96 % 2018-02-04 BMI 21.57 kg/m2 2018-02-04 Blood pressure systolic 118 mmHg 2018-02-04 Blood pressure diastolic 78 mmHg 2018-02-04 MEDICATIONS Medication Instructions Dosage Frequency Start Date End Date Duration Status ProAir HFA 108 (90 Base) MCG/ACT Inhalation every 6 hrs 2 puffs as needed 6h Jan, Active Lisinopril 10 mg Orally Once a day 1 tablet 24h Apr, 90 days Active Symbicort 160-4.5 MCG/ACT Inhalation Twice a day 2 puffs 12h Active RESULTS No Results PROCEDURES No Known procedures INSTRUCTIONS MEDICATIONS ADMINISTERED No Known Medications MEDICAL (GENERAL) HISTORY Type Description Date Medical History hypertension Medical History insomnia Medical History bilateral ear ringing since 2013 Medical History COPD Surgical History angioplasty Surgical History christin-rectal cyst removed
--- OUTSIDE RECORDS SUMMARY | 2018-10-01 10:11 | XMS REPORT ---
Author Author MERA TURNER [facility] Address [address] [place] [address] Care Team Providers Care Spring Fitter Helper Name Role Phone TATYANAYOSELYN MERA Unavailable PROBLEMS Type Condition ICD9-CM Code [id number] Code Onset Dates Condition Status SNOMED Code Problem Chronic obstructive pulmonary disease, unspecified COPD type J44.9 Active 78305999 Problem Benign prostatic hyperplasia with lower urinary tract symptoms N40.1 Active 127289588 Problem Hypertension I10 Active 36632527 ALLERGIES No Known Allergies ENCOUNTERS Encounter Location Date Diagnosis [place] [address] [address] Jan, Hypertension I10 and Chronic obstructive pulmonary disease, unspecified COPD type J44.9 [facility] [address] [address] Jan, Hypertension I10 [place] [address] [address] 10 Oct, 2017 Dyspnea on exertion R06.09 ; Essential (primary) hypertension I10 ; Claudication of both lower extremities I73.9 [address] Lung [address]91.1 [facility] [address] [address] 05 Sep, 2017 Encounter for immunization Z23 ; Hypertension I10 ; Benign prostatic hyperplasia with lower urinary tract symptoms N40.1 and Chronic obstructive pulmonary disease, unspecified COPD type J44.9 [facility] [address] [address] 02 Aug, 2017 Hypertension I10 and Nocturia R35.1 [place] [address] [address] 13 Jun, 2017 Dyspnea on exertion R06.09 ; Essential (primary) hypertension I10 ; Claudication of both lower extremities I73.9 and Lung nodule R91.1 [place] [address] [place] [id number] [place] [address]- [address] May, Chest discomfort R07.89 ; Dyspnea on exertion R06.09 ; Heart palpitations R00.2 ; Hypertension I10 and Tobacco use Z72.[address] [address] May, Flank pain R10.9 ; Fever, unspecified fever cause R50.9 and Diarrhea, unspecified type R19.[address] [address] Apr, Hypertension I10 ; Nocturia R35.1 ; Other chest pain R07.89 and Chronic obstructive pulmonary disease, unspecified COPD type J44.[address] [address] Jan, Nocturia R35.1 ; Hypertension I10 and Screening cholesterol level Z13.220 [place] [address] [address] Jan, Nocturia R35.1 ; Incontinence of feces R15.9 ; Hypertension I10 and Screening cholesterol level Z13.220 [place] [address] [place] [id number] [place] [address]- [address] Apr, Hypertension I10 [place] [address] [place] [id number] [place] [address]- 18[address] Mar, Essential (primary) hypertension I10 [place] [address] [place] [id number] [place] [address]- 5809 Oct, Hypertension I10 ; Back pain M54.9 ; Malaise R53.81 ; Nocturia R35.1 and Incontinence of feces R15.9 [place] [address] [place] [id number] [place] [address]- [address] Sep, Hypertension I10 ; Malaise R53.81 ; Nocturia R35.1 and Back pain M54.9 [facility] [address] [place] [id number] [address] 27 Apr, 2015 Essential hypertension, benign 401.1 and Environmental allergies V15.09 [facility] [address] [facility] [id number] [place] [address] 9276 17 Apr, [address] [facility] [address] [place] [id number] [place] [address] Apr, [facility] [address] [facility] [facility] [id number] [place] [address], [place] [address] Jan, [facility] [address] [place] [id number] [place] [address], [place] [address] Jan, [facility] [address] [place] [id number] [place] [address], [place] [address] Oct, [facility] [address] [place] [id number] [place] [address], [place] [address] Oct, [facility] [address] [place] [address] Oct, [facility] [address] [place] [id number] [place] [address], [place] [address] Oct, [facility] [address], [place] [address] Sep, [facility] [address] [address] Sep, [facility] [address] [id number] [address] Sep, [facility] [address] [place] [id number] [place] [address] 466[address]- [address] Sep, [facility] [address], [place] [address] Jun, [facility] [address] [place] [address]- [address]45 05 Jun, 2014 [facility] [place] [facility] [address] [id number] [place] [address]- [address] 02 Jun, 2013 [facility] [place] [facility] [address] [id number] [place] [address]- 7705 02 Jun, 2013 [facility] [place] [facility] [address] [id number] [place] [address]- 0918 02 Jun, 2013 [facility] [place] [facility] [address] [id number] [place] [address]- 2529 02 Jun, 2013 [facility] [place] [facility] [address] [id number] [place] [address]- 9892 Dec, [facility] [place] [facility] [address] [id number] [place] [address]- 7981 Dec, [facility] [place] [facility] [address] [id number] [place] [address]- 2434 Aug, [facility] [place] [facility] [address] [id number] [place] [address]- 7625 Aug, [facility] [place] [facility] [address] [id number] [place] [address]- 9322 Dec, [facility] [place] [facility] [address] [id number] [place] [address]- 0873 Dec, [facility] [place] [facility] [address] [id number] [place] [address]- 7237 Dec, [facility] [place] [facility] [address] [id number] [place] [address]- 5742 28 Nov, 2012 [facility] [place] [facility] [address] [id number] [place] [address]- 1281 Nov, [facility] [place] [facility] [address] [id number] [place] [address]- 7[address] 05 Nov, 2012 [facility] [place] [facility] [address] [id number] [place] [address]- 0315 Nov, [facility] [place] [facility] [address] [facility] [id number] [place] [address] Oct, [facility] [address] [facility] [id number] [place] [address] May, [facility] [address] [facility] [id number] [address] May, [facility] [address] [facility] [id number], [place] [address]- [address] Apr, IMMUNIZATIONS No Known Immunizations SOCIAL HISTORY Never Assessed REASON FOR VISIT Chest Pain PLAN OF CARE Activity Details Follow Up 4 Weeks Reason: VITAL SIGNS Height 74 in 2017-05-26 Weight 177 lbs 2017-05-26 Heart Rate 76 bpm 2017-05-26 Oximetry 97 % 2017-05-26 BMI 22.72 kg/m2 2017-05-26 Blood pressure systolic 112 mmHg 2017-05-26 Blood pressure diastolic 68 mmHg 2017-05-26 MEDICATIONS Medication Instructions Dosage Frequency Start Date End Date Duration Status Proventil HFA 108 (90 Base) MCG/ACT Inhalation every 4 hrs 2 puffs as needed 4h Apr, Active Lisinopril 10 mg Orally Once a day 1 tablet 24h Apr, 90 days Active Tamsulosin HCl 0.4 MG Orally Once a day 1 capsule 24h Apr,Jul 90 days Active Keflex 500 mg Orally every 12 hrs 1 capsule 12h May, May, 10 day(s) Active RESULTS Name Result Date Reference Range Lexiscan Stress Nuclear Test 2017-06-10 Echo 2D 2017-06-08 Carotid Ultrasound 2017-06-14 PROCEDURES Procedure Date Ordered Result Body Site MEASURE BLOOD OXYGEN LEVEL May 26, 2017 INSTRUCTIONS MEDICATIONS ADMINISTERED No Known Medications MEDICAL (GENERAL) HISTORY Type Description Date Medical History hypertension Medical History insomnia Medical History bilateral ear ringing since 2013 Medical History COPD Surgical History angioplasty Surgical History christin-rectal cyst removed
--- OUTSIDE RECORDS SUMMARY | 2018-10-01 10:11 | XMS REPORT ---
Author Author TRU CARTER Organization [facility] Address [address] [place] [address] Care Team Providers Care Open Hearth Door Liner Name Role Phone TRU CARTER Unavailable PROBLEMS Type Condition ICD9-CM Code [id number] Code Onset Dates Condition Status SNOMED Code Problem Chronic obstructive pulmonary disease, unspecified COPD type J44.9 Active 83167096 Problem Benign prostatic hyperplasia with lower urinary tract symptoms N40.1 Active 224083105 Problem Hypertension I10 Active 23207344 ALLERGIES No Known Allergies ENCOUNTERS Encounter Location Date Diagnosis [place] [address] [address] Jan, Hypertension I10 and Chronic obstructive pulmonary disease, unspecified COPD type J44.9 [place] [address] [address] Jan, Hypertension I10 [address] [address] 10 Oct, 2017 Dyspnea on exertion R06.09 ; Essential (primary) hypertension I10 ; Claudication of both lower extremities I73.9 and Lung nodule R91.[address] [address]- [address] 05 Sep, 2017 Encounter for immunization Z23 ; Hypertension I10 ; Benign prostatic hyperplasia with lower urinary tract symptoms N40.1 and Chronic obstructive pulmonary disease, unspecified COPD type J44.9 [place] [address] [address]- [address] 02 Aug, 2017 Hypertension I10 and Nocturia R35.1 [place] [address] [address]- [address] 13 Jun, 2017 Dyspnea on exertion R06.09 ; Essential (primary) hypertension I10 ; Claudication of both lower extremities I73.9 and Lung nodule R91.1 [place] [address] [place] [id number] [place] [address]- [address] May, Chest discomfort R07.89 ; Dyspnea on exertion R06.09 ; Heart palpitations R00.2 ; Hypertension I10 and Tobacco use Z72.[address] [address]- [address] May, Flank pain R10.9 ; Fever, unspecified fever cause R50.9 and Diarrhea, unspecified type R19.[address] [address]- [address] Apr, Hypertension I10 ; Nocturia R35.1 ; Other chest pain R07.89 and Chronic obstructive pulmonary disease, unspecified COPD type J44.[address] [address]- [address] Jan, Nocturia R35.1 ; Hypertension I10 and Screening cholesterol level Z13.220 [place] [address] [address]- [address] Jan, Nocturia R35.1 ; Incontinence of feces R15.9 ; Hypertension I10 and Screening cholesterol level Z13.220 [place] [address] [place] [id number] [place] [address]- 8625 Apr, Hypertension I10 [place] [address] [place] [id number] [place] [address]- 2321 Mar, Essential (primary) hypertension I10 [place] [address] [place] [id number] [place] [address]- 5866 Oct, Hypertension I10 ; Back pain M54.9 ; Malaise R53.81 ; Nocturia R35.1 and Incontinence of feces R15.9 [place] [address] [place] [id number] [place] [address]- 5796 Sep, Hypertension I10 ; Malaise R53.81 ; Nocturia R35.1 and Back pain M54.9 [facility] [address] [place] [id number] [place] [address]- [address] 27 Apr, 2015 Essential hypertension, benign 401.1 and Environmental allergies V15.09 [facility] [address] [facility] [id number] [place] [address]- 5206 17 Apr, 2015 [facility] [address] [place] [id number] [place] [address]- 7057 Apr, [facility] [address] [facility] [id number] [place] [address], [place] [address]- 8288 Jan, [facility] [address] [place] [id number] [place] [address], [place] [address]- 1294 Jan, [facility] [address] [place] [id number] [place] [address], [place] [address]- 0259 Oct, [facility] [address] [place] [id number] [place] [address], [place] [address]- 9704 Oct, [facility] [address] [place] [address] 29[address]- 3038 Oct, [facility] [address] [place] [id number] [place] [address], [place] [address]- 1663 Oct, [facility] [address], [place] [address]- 7894 Sep, [facility] [address], [place] [address]- 1720 Sep, [facility] [address] [place] [id number], [place] [address]- 2542 Sep, [facility] [address] [place] [id number] [place] [address] 912768- 5395 Sep, [facility] [address], [place] [address]- 2543 Jun, [facility] [address] [place] [address] 81130- 9699 05 Jun, 2014 [facility] [place] [facility] [address] [id number] [place] [address]- 7757 02 Jun, 2013 [facility] [place] [facility] [address] [id number] [place] [address]- 7919 02 Jun, 2013 [facility] [place] [facility] [address] [id number] [place] [address]- 4360 02 Jun, 2013 [facility] [place] [facility] [address] [id number] [place] [address]- 6393 02 Jun, 2013 [facility] [place] [facility] [address] [id number] [place] [address]- 9593 Dec, [facility] [place] [facility] [address] [id number] [place] [address]- 9171 Dec, [facility] [place] [facility] [address] [id number] [place] [address]- 3078 Aug, [facility] [place] [facility] [address] [id number] [place] [address]- 1059 Aug, [facility] [place] [facility] [address] [id number] [place] [address]- 0553 Dec, [facility] [place] [facility] [address] [id number] [place] [address]- 6272 Dec, [facility] [place] [facility] [address] [id number] [place] [address]- 2329 Dec, [facility] [place] [facility] [address] [id number] [place] [address]- 6391 28 Nov, 2012 [facility] [place] [facility] [address] [id number] [place] [address]- 0741 Nov, [facility] [place] [facility] [address] [id number] [place] [address]- 4834 05 Nov, 2012 [facility] [place] [facility] [address] [id number] [place] [address]- 9344 Nov, [facility] [place] [facility] [address] [facility] [id number] [place] [address]- 8482 Oct, [facility] [address] [facility] [id number], [place] [address]- 9835 May, [facility] [address] [facility] [id number], [place] [address]- 5[address] May, [facility] [address] [facility] [id number], [place] [address]- 2686 Apr, IMMUNIZATIONS Vaccine Route Administration Date Status FLUARIX QUAD (3 AND UP) 2016 IM Intramuscular Sep 21, 2017 Administered SOCIAL HISTORY Never Assessed REASON FOR VISIT Trans of Care - Jayjay davis -Jelly TOPETE PLAN OF CARE Activity Details Follow Up 3 Months Reason: VITAL SIGNS Height 74 in 2017-09-21 Weight 178.7 lbs 2017-09-21 Temperature 98.3 degrees Fahrenheit 2017-09-21 Heart Rate 66 bpm 2017-09-21 Respiratory Rate 18 2017-09-21 BMI 22.94 kg/m2 2017-09-21 Blood pressure systolic 128 mmHg 2017-09-21 Blood pressure diastolic 72 mmHg 2017-09-21 MEDICATIONS Medication Instructions Dosage Frequency Start Date End Date Duration Status Benefiber 1 tablet Orally Once a day as directed 24h Oct, Not-Taking Lisinopril 10 mg Orally Once a day 1 tablet 24h Apr, 90 days Active Tamsulosin HCl 0.4 MG Orally Once a day 1 capsule 24h Apr,Oct 90 days Active Tizanidine HCl 4 MG Orally at hs prn back pspasm 1 tablet as needed Sep, Not-Taking Proventil HFA 108 (90 Base) MCG/ACT Inhalation every 4 hrs 2 puffs as needed 4h Apr, Active Lisinopril-Hydrochlorothiazide 20-12.5 MG Orally Once a day 1 tablet 24h Oct, 30 Not-Taking Avodart 0.5 MG Orally Once a day 1 capsule 24h Sep, Active Lisinopril-Hydrochlorothiazide 20-12.5 TAKE ONE TABLET BY MOUTH DAILY 30 Not-Taking RESULTS No Results PROCEDURES Procedure Date Ordered Result Body Site FLUARIX QUAD (3 AND UP) 2017 Sep 21, 2017 SINGLE IMMUNIZATION ADMIN Sep 21, 2017 INSTRUCTIONS MEDICATIONS ADMINISTERED No Known Medications MEDICAL (GENERAL) HISTORY Type Description Date Medical History hypertension Medical History insomnia Medical History bilateral ear ringing since 2013 Medical History COPD Surgical History angioplasty Surgical History christin-rectal cyst removed
--- OUTSIDE RECORDS SUMMARY | 2018-10-01 10:12 | XMS REPORT ---
Author Author LI Lynne Organization [facility] Address [address] [place] [address] Care Team Providers Care Inspector Heating And Refrigeration Name Role Phone harryANALISA LI Unavailable PROBLEMS Type Condition ICD9-CM Code [id number] Code Onset Dates Condition Status SNOMED Code Problem Hypertension I10 Active 22020674 Problem Malaise R53.81 Active 123078318 Problem Nocturia R35.1 Active 419626157 Problem Back pain M54.9 Active 650111374 Problem Essential (primary) hypertension I10 Active 17845204 Problem Lung nodule R91.1 Active 877212815 Problem Chronic obstructive pulmonary disease, unspecified COPD type J44.9 Active 83510398 Problem Incontinence of feces R15.9 Active 39212759 Problem Claudication of both lower extremities I73.9 Active 904549193 Problem Benign prostatic hyperplasia with lower urinary tract symptoms N40.1 Active 842394029 ALLERGIES No Known Allergies ENCOUNTERS Encounter Location Date Diagnosis [place] [id number] [place] [address] 38988- 6228 Jan, [place] [id number] [place] [address] 59387- 8000 Jan, Hypertension I10 [place] [id number] [place] [address] 17504- 2059 Oct, Dyspnea on exertion R06.09 ; Essential (primary) hypertension I10 ; Claudication of both lower extremities I73.9 and Lung nodule R91.1 [place] [id number] [place] [address] 55728- 4694 05 Sep, 2017 Encounter for immunization Z23 ; Hypertension I10 ; Benign prostatic hyperplasia with lower urinary tract symptoms N40.1 and Chronic obstructive pulmonary disease, unspecified COPD type J44.9 [facility] [place] [id number] [place] [address] 70417- 7995 Aug, Hypertension I10 and Nocturia R35.[address] [address]- 1042 Jun, Dyspnea on exertion R06.09 ; Essential (primary) hypertension I10 ; Claudication of both lower extremities I73.9 and Lung nodule R91.[address] 66848- 0629 May, Chest discomfort R07.89 ; Dyspnea on exertion R06.09 ; Heart palpitations R00.2 ; Hypertension I10 and Tobacco use Z72.[address] 11644- 7010 May, Flank pain R10.9 ; Fever, unspecified fever cause R50.9 and Diarrhea, unspecified type R19.[address] 36203- 1609 Apr, Hypertension I10 ; Nocturia R35.1 ; Other chest pain R07.89 and Chronic obstructive pulmonary disease, unspecified COPD type J44.[address] 04916- 1159 Jan, Nocturia R35.1 ; Hypertension I10 and Screening cholesterol level Z13.[address] 17374- 6017 Jan, Nocturia R35.1 ; Incontinence of feces R15.9 ; Hypertension I10 and Screening cholesterol level Z13.[address] 77363- 1776 Apr, Hypertension I10 [address] 51781- 2134 Mar, Essential (primary) hypertension I10 [address] 60622- 3075 Oct, Hypertension I10 ; Back pain M54.9 ; Malaise R53.81 ; Nocturia R35.1 and Incontinence of feces R15.9 [facility] [id number] [place] [address] 28683- 4536 Sep, Hypertension I10 ; Malaise R53.81 ; Nocturia R35.1 and Back pain M54.9 [facility] [id number] [place] [address] 42304- 8449 Apr, Essential hypertension, benign 401.1 and Environmental allergies V15.09 [facility] [id number] [place] [address] 32647- 0862 Apr, [facility] [id number] [place] [address] 87655- 2562 Apr, [facility] [id number] [place] [address] 23512- 1173 Jan, [facility] [id number] [place] [address] 47083- 0459 Jan, [facility] [id number] [place] [address] 04307- 5495 Oct, [facility] [id number] [place] [address] 16888- 1958 Oct, [facility] [address] [address] 4779 Oct, [facility] [id number] [place] [address] 88979- 6857 Oct, [facility] [address], [place] [address]- 9000 Sep, [facility] [id number] [place] [address] 644761- 5895 Sep, [facility] [address] [address] Sep, [facility] [id number] [place] [address] 6650 15 Sep, 2014 [facility] [address] [id number] [place] [address]- 6363 05 Jun, 2013 [facility] [place] [facility] [address] [id number] [place] [address]- 1536 05 Jun, 2013 [facility] [address] [id number] [place] [address]- 9886 02 Jun, 2013 [facility] [place] [facility] [address] [id number] [place] [address]- 3156 Jun, 2013 [facility] [place] [facility] [address] [id number] [place] [address]- 5038 Jun, [facility] [place] [facility] [address] [id number] [place] [address]- 3581 Jun, [facility] [address] [id number] [place] [address]- 0578 Dec, [facility] [address] [id number] [place] [address]- 4335 20 Dec, 2013 [facility] [place] [facility] [address] [id number] [place] [address]- 4726 Aug, [facility] [address] [id number] [place] [address]- 3484 07 Aug, 2013 [facility] [place] [facility] [address] [id number] [place] [address]- 6940 14 Dec, 2012 [facility] [place] [facility] [address] [id number] [place] [address]- 2178 04 Dec, 2012 [facility] [place] [facility] [address] [id number] [place] [address]- 5826 Dec, [facility] [place] [facility] [address] [id number] [place] [address]- 1981 28 Nov, 2012 [facility] [place] [facility] [address] [id number] [place] [address]- 0583 Nov, [facility] [address] [facility] [id number] [address]- 6974 Nov, [facility] [address], [place] [address]- 7308 Nov, [facility] [id number] [address]- 5038 Oct, [facility] [address], [place] [address]- 4771 May, [facility] [address] [address]- 4248 May, [place] [address] [address] Apr, IMMUNIZATIONS No Known Immunizations SOCIAL HISTORY Never Assessed REASON FOR VISIT Fever, reports up to 102.7 today. Started 4 days ago. Pain in brandon plank, diarrhea.Fatigue. HR and BP has been going up. CBrumbackRN PLAN OF CARE Activity Details Follow Up 2 - 3 Days, prn Reason:fever VITAL SIGNS Height 74 in 2017-05-19 Weight 175.9 lbs 2017-05-19 Temperature 98.5 degrees Fahrenheit 2017-05-19 Heart Rate 98 bpm 2017-05-19 Respiratory Rate 20 2017-05-19 BMI 22.58 kg/m2 2017-05-19 Blood pressure systolic 120 mmHg 2017-05-19 Blood pressure diastolic 70 mmHg 2017-05-19 MEDICATIONS Medication Instructions Dosage Frequency Start Date End Date Duration Status Proventil HFA 108 (90 Base) MCG/ACT Inhalation every 4 hrs 2 puffs as needed 4h Apr, Active Keflex 500 mg Orally every 12 hrs 1 capsule 12h May, May, 10 day(s) Active Lisinopril 10 mg Orally Once a day 1 tablet 24h Apr, 90 days Active Tamsulosin HCl 0.4 MG Orally Once a day 1 capsule 24h Apr,Jul 90 days Active RESULTS Name Result Date Reference Range UA LONG DIP (IN HOUSE) 2017-05-19 Lot # [id number] Exp date 05/2018 Clarity clear Color yellow Odor no GLU negative BRANDON negative KET negative SG 1.015 BLO negative pH 7.5 Protein negative URO 4.0 NIT negative SCOOBY trace Lot # Exp date Xray : Chest (IN HOUSE) 2017-05-19 CBC 2017-05-19 WBC 10.4 3.4-10.8 RBC 4.15 4.14-5.80 Hemoglobin 12.5 12.6-17.7 Hematocrit 36.4 37.5-51.0 MCV 88 79-97 MCH 30.1 26.6-33.0 MCHC 34.3 31.5-35.7 RDW 13.9 12.3-15.4 Platelets 247 150-379 Neutrophils 72 Lymphs 19 Monocytes 9 Eos 0 Basos 0 Neutrophils (Absolute) 7.5 1.4-7.0 Lymphs (Absolute) 1.9 0.7-3.1 Monocytes(Absolute) 1.0 0.1-0.9 Eos (Absolute) 0.0 0.0-0.4 Baso (Absolute) 0.0 0.0-0.2 Immature Granulocytes 0 Immature Grans (Abs) 0.0 0.0-0.1 CMP 2017-05-19 Glucose, Serum 78 65-99 BUN 11 6-24 Creatinine, Serum 0.77 0.76-1.27 eGFR If NonAfricn Am 108 >59 eGFR If Africn Am 125 >59 BUN/Creatinine Ratio 14 9-20 Sodium, Serum 140 134-144 Potassium, Serum 4.5 3.5-5.2 Chloride, Serum 97 96-106 Carbon Dioxide, Total 23 18-29 Calcium, Serum 8.8 8.7-10.2 Protein, Total, Serum 6.8 6.0-8.5 Albumin, Serum 4.0 3.5-5.5 Globulin, Total 2.8 1.5-4.5 A/G Ratio 1.4 1.2-2.2 Bilirubin, Total 0.4 0.0-1.2 Alkaline Phosphatase, S 91 39-117 AST (SGOT) 22 0-40 ALT (SGPT) 16 0-44 PROCEDURES Procedure Date Ordered Result Body Site ROUTINE VENIPUNCTURE 2017-05-19 N/A EKG, TRACING (IN-HOUSE) 2017-05-19 N/A ELECTROCARDIOGRAM, TRACING May 19, 2017 URINALYSIS, AUTO, W/O SCOPE May 19, 2017 CHEST X-RAY May 19, 2017 COMPREHEN METABOLIC PANEL May 19, 2017 COMPLETE CBC W/AUTO DIFF WBC May 19, 2017 INSTRUCTIONS MEDICATIONS ADMINISTERED No Known Medications MEDICAL (GENERAL) HISTORY Type Description Date Medical History hypertension Medical History insomnia Medical History bilateral ear ringing since 2013 Medical History COPD Surgical History angioplasty Surgical History christin-rectal cyst removed
--- OUTSIDE RECORDS SUMMARY | 2018-10-01 10:12 | XMS REPORT ---
Author Author MERA TURNER [facility] Address [address] [place] [address] Care Team Providers Care Mathematical Engineering Technician Name Role Phone TATYANAYOSELYN MERA Unavailable PROBLEMS Type Condition ICD9-CM Code [id number] Code Onset Dates Condition Status SNOMED Code Problem Chronic obstructive pulmonary disease, unspecified COPD type J44.9 Active 89815951 Problem Benign prostatic hyperplasia with lower urinary tract symptoms N40.1 Active 695404335 Problem Hypertension I10 Active 45681242 ALLERGIES No Known Allergies ENCOUNTERS Encounter Location Date Diagnosis [place] [address] [address]- [address] Jan, Hypertension I10 and Chronic obstructive pulmonary disease, unspecified COPD type J44.9 [facility] [address] 32437- 7585 Jan, Hypertension I10 [place] [address] 50392- 5383 10 Oct, 2017 Dyspnea on exertion R06.09 ; Essential (primary) hypertension I10 ; Claudication of both lower extremities I73.9 and Lung nodule R91.1 [facility] [address] 59435- 7202 05 Sep, 2017 Encounter for immunization Z23 ; Hypertension I10 ; Benign prostatic hyperplasia with lower urinary tract symptoms N40.1 and Chronic obstructive pulmonary disease, unspecified COPD type J44.9 [facility] [address] 44127- 9317 02 Aug, 2017 Hypertension I10 and Nocturia R35.1 [place] [address] 18701- 3282 13 Jun, 2017 Dyspnea on exertion R06.09 ; Essential (primary) hypertension I10 ; Claudication of both lower extremities I73.9 and Lung nodule R91.1 [place] [address] [id number] [place] [address] 23528- 9905 May, Chest discomfort R07.89 ; Dyspnea on exertion R06.09 ; Heart palpitations R00.2 ; Hypertension I10 and Tobacco use Z72.[address] [address]- 1184 May, Flank pain R10.9 ; Fever, unspecified fever cause R50.9 and Diarrhea, unspecified type R19.[address] 38885- 1218 Apr, Hypertension I10 ; Nocturia R35.1 ; Other chest pain R07.89 and Chronic obstructive pulmonary disease, unspecified COPD type J44.[address] 31406- 8072 Jan, Nocturia R35.1 ; Hypertension I10 and Screening cholesterol level Z13.220 [place] [address] [address]- 1212 Jan, Nocturia R35.1 ; Incontinence of feces R15.9 ; Hypertension I10 and Screening cholesterol level Z13.220 [place] [id number] [place] [address] 02456- 2663 Apr, Hypertension I10 [place] [id number] [place] [address] 86001- 4831 Mar, Essential (primary) hypertension I10 [place] [id number] [place] [address] 69362- 8535 Oct, Hypertension I10 ; Back pain M54.9 ; Malaise R53.81 ; Nocturia R35.1 and Incontinence of feces R15.9 [place] [id number] [place] [address] 03612- 1678 Sep, Hypertension I10 ; Malaise R53.81 ; Nocturia R35.1 and Back pain M54.9 [facility] [id number] [address]- 5903 27 Apr, 2015 Essential hypertension, benign 401.1 and Environmental allergies V15.09 [facility] [address] [facility] [id number] [place] [address]- 1326 17 Apr, 2015 [facility] [id number] [place] [address] 00015- 3604 Apr, [facility] [address] [facility] [id number] [place] [address], [place] [address]- 3578 Jan, [facility] [id number] [place] [address], [place] [address]- 0639 Jan, [facility] [id number] [place] [address], [place] [address]- 9505 Oct, [facility] [id number] [place] [address], [place] [address]- 7209 Oct, [facility] [id number] [place] [address] 33688- 8002 Oct, [facility] [id number] [place] [address], [place] [address]- 3559 Oct, [facility] [address] [address]- 9285 Sep, [facility] [address] [address]- 9417 Sep, [facility] [id number] [address]- 2544 Sep, [facility] [id number] [place] [address] 121824- 5073 Sep, [facility] [address] [address]- 2542 Jun, [facility] [id number] [place] [address] 37031- 0370 05 Jun, 2014 [facility] [place] [facility] [address] [id number] [place] [address]- 7571 02 Jun, 2013 [facility] [place] [facility] [address] [id number] [place] [address]- 7091 02 Jun, 2013 [facility] [place] [facility] [address] [id number] [place] [address]- 6735 02 Jun, 2013 [facility] [place] [facility] [address] [id number] [place] [address]- 2031 02 Jun, 2013 [facility] [place] [facility] [address] [id number] [place] [address]- 5045 Dec, [facility] [place] [facility] [address] [id number] [place] [address]- 5758 Dec, [facility] [place] [facility] [address] [id number] [place] [address]- 4652 Aug, [facility] [place] [facility] [address] [id number] [place] [address]- 7034 Aug, [facility] [place] [facility] [address] [id number] [place] [address]- 5968 Dec, [facility] [place] [facility] [address] [id number] [place] [address]- 9704 Dec, [facility] [place] [facility] [address] [id number] [place] [address]- 5887 Dec, [facility] [place] [facility] [address] [id number] [place] [address]- 8693 28 Nov, 2012 [facility] [place] [facility] [address] [id number] [place] [address]- 2900 Nov, [facility] [place] [facility] [address] [id number] [place] [address]- 8693 05 Nov, 2012 [facility] [place] [facility] [address] [id number] [place] [address]- 5050 Nov, [facility] [place] [facility] [address] [facility] [id number] [place] [address]- 2514 Oct, [facility] [address] [facility] [id number] [place] [address]- 3950 May, [facility] [address] [facility] [id number] [address]- 2304 May, [facility] [address] [facility] [id number] [address]- 7505 Apr, IMMUNIZATIONS No Known Immunizations SOCIAL HISTORY Never Assessed REASON FOR VISIT 4 wk f/u PLAN OF CARE Activity Details Follow Up 2 Months Reason: VITAL SIGNS Height 74 in 2017-06-30 Weight 175 lbs 2017-06-30 Heart Rate 80 bpm 2017-06-30 Oximetry 97 % 2017-06-30 BMI 22.47 kg/m2 2017-06-30 Blood pressure systolic 122 mmHg 2017-06-30 Blood pressure diastolic 78 mmHg 2017-06-30 MEDICATIONS Medication Instructions Dosage Frequency Start Date End Date Duration Status Tamsulosin HCl 0.4 MG Orally Once a day 1 capsule 24h Apr,Jul 90 days Active Proventil HFA 108 (90 Base) MCG/ACT Inhalation every 4 hrs 2 puffs as needed 4h Apr, Active Lisinopril 10 mg Orally Once a day 1 tablet 24h Apr, 90 days Active RESULTS Name Result Date Reference Range BRI 2017-07-13 PROCEDURES Procedure Date Ordered Result Body Site MEASURE BLOOD OXYGEN LEVEL Jun 30, 2017 INSTRUCTIONS MEDICATIONS ADMINISTERED No Known Medications MEDICAL (GENERAL) HISTORY Type Description Date Medical History hypertension Medical History insomnia Medical History bilateral ear ringing since 2013 Medical History COPD Surgical History angioplasty Surgical History christin-rectal cyst removed
--- OUTSIDE RECORDS SUMMARY | 2018-10-01 10:12 | XMS REPORT ---
Author Author TRU CARTER Organization [facility] Address [address] [place] [address] Care Team Providers Care Automatic Folder Seamer Name Role Phone TRU CARTER Unavailable PROBLEMS Type Condition ICD9-CM Code [id number] Code Onset Dates Condition Status SNOMED Code Problem Chronic obstructive pulmonary disease, unspecified COPD type J44.9 Active 95545218 Problem Benign prostatic hyperplasia with lower urinary tract symptoms N40.1 Active 309410725 Problem Hypertension I10 Active 10222101 ALLERGIES No Information ENCOUNTERS Encounter Location Date Diagnosis [place] [address] [address] Jan, Hypertension I10 and Chronic obstructive pulmonary disease, unspecified COPD type J44.9 [place] [address] [address] Jan, Hypertension I10 [address] [address] 10 Oct, 2017 Dyspnea on exertion R06.09 ; Essential (primary) hypertension I10 ; Claudication of both lower extremities I73.9 and Lung nodule R91.[address] [address] 05 Sep, 2017 Encounter for immunization Z23 ; Hypertension I10 ; Benign prostatic hyperplasia with lower urinary tract symptoms N40.1 and Chronic obstructive pulmonary disease, unspecified COPD type J44.9 [place] [address] [address]- [address] 02 Aug, 2017 Hypertension I10 and Nocturia R35.1 [place] [address] [address]- 70[address] 13 Jun, 2017 Dyspnea on exertion R06.09 ; Essential (primary) hypertension I10 ; Claudication of both lower extremities I73.9 and Lung nodule R91.1 [place] [address] [place] [id number] [place] [address]- 1611 May, Chest discomfort R07.89 ; Dyspnea on exertion R06.09 ; Heart palpitations R00.2 ; Hypertension I10 and Tobacco use Z72.0 [place] [address] [address]- 8[address] May, Flank pain R10.9 ; Fever, unspecified fever cause R50.9 and Diarrhea, unspecified type R19.7 [place] [address] [address]- [address] Apr, Hypertension I10 ; Nocturia R35.1 ; Other chest pain R07.89 and Chronic obstructive pulmonary disease, unspecified COPD type J44.9 [place] [address] [address]- 3360 Jan, Nocturia R35.1 ; Hypertension I10 and Screening cholesterol level Z13.220 [place] [address] 0[address]- 2073 Jan, Nocturia R35.1 ; Incontinence of feces R15.9 ; Hypertension I10 and Screening cholesterol level Z13.220 [place] [address] [place] [id number] [place] [address]01- 2887 Apr, Hypertension I10 [place] [address] [place] [id number] [place] [address] 45289- 4060 Mar, Essential (primary) hypertension I10 [place] [address] [address]- 60[address] Oct, Hypertension I10 ; Back pain M54.9 ; Malaise R53.81 ; Nocturia R35.1 and Incontinence of feces R15.9 [place] [address] [place] [id number] [place] [address] 01811- 9995 Sep, Hypertension I10 ; Malaise R53.81 ; Nocturia R35.1 and Back pain M54.9 [facility] [id number] [place] [address] Apr, Essential hypertension, benign 401.1 and Environmental allergies V15.09 [facility] [address] [facility] [id number] [place] [address]656 17 Apr, 2015 [facility] [address] [place] [id number] [place] [address] 06344- 0094 Apr, [facility] [address] [facility] [id number] [place] [address], [place] [address]- [address] Jan, [facility] [address] [place] [id number] [place] [address], [place] [address]- [address]238 Jan, [facility] [address] [place] [id number] [place] [address], [place] [address]- 1066 Oct, [facility] [address] [place] [id number] [place] [address]28- 1324 Oct, [facility] [id number] [place] [address] 25751- 1995 Oct, [facility] [address] [place] [id number] [place] [address], [place] [address]- 6668 Oct, [facility] [address], [place] [address] Sep, [facility] [id number] [place] [address] 33997- 5738 Sep, [facility] [address] [address] 1752 Sep, [facility] [address] [place] [id number] [place] [address], [place] [address]- 2311 Sep, [facility] [address], [place] [address] Jun, [facility] [id number] [place] [address] 92464- 5309 05 Jun, 2014 [facility] [place] [facility] [address] [id number] [place] [address]- 8478 02 Jun, 2013 [facility] [place] [facility] [address] [id number] [place] [address]- 5100 02 Jun, 2013 [facility] [place] [facility] [address] [id number] [place] [address]- 0781 02 Jun, 2013 [facility] [place] [facility] [address] [id number] [place] [address]- 3309 02 Jun, 2013 [facility] [place] [facility] [address] [id number] [place] [address]- 0309 Dec, [facility] [place] [facility] [address] [id number] [place] [address]- 8536 Dec, [facility] [place] [facility] [address] [id number] [place] [address]- 8851 Aug, [facility] [place] [facility] [address] [id number] [place] [address]- 4239 Aug, [facility] [place] [facility] [address] [id number] [place] [address]- 6602 Dec, [facility] [place] [facility] [address] [id number] [place] [address]- 3881 Dec, [facility] [place] [facility] [address] [id number] [place] [address]- 7872 Dec, [facility] [place] [facility] [address] [id number], [place] [address]37 28 Nov, 2012 [facility] [place] [facility] [address] [id number] [place] [address]- 9361 Nov, [facility] [place] [facility] [address] [id number] [place] [address]- 8684 05 Nov, 2012 [facility] [place] [facility] [address] [id number] [place] [address]- 1656 Nov, [facility] [place] [facility] [address] [facility] [id number] [place] [address]- 4146 Oct, [facility] [address] [facility] [id number], [place] [address] 7313 May, [facility] [address] [facility] [id number], [place] [address] 1827 May, [facility] [address] [facility] [id number], [place] [address]- 7583 Apr, IMMUNIZATIONS No Known Immunizations SOCIAL HISTORY Never Assessed REASON FOR VISIT Refill request PLAN OF CARE VITAL SIGNS MEDICATIONS Medication Instructions Dosage Frequency Start Date End Date Duration Status Tamsulosin HCl 0.4 MG Orally Once a day 1 capsule 24h Apr,Oct 90 days Active Lisinopril 10 mg Orally Once a [...]
--- OUTSIDE RECORDS SUMMARY | 2018-10-01 10:12 | XMS REPORT ---
Author Author MERA TURNER [facility] Address [address] [place] [address] Care Team Providers Care Cigar Making Supervisor Name Role Phone TATYANAYOSELYN MERA Unavailable PROBLEMS Type Condition ICD9-CM Code [id number] Code Onset Dates Condition Status SNOMED Code Problem Muscle tension headache G44.209 Active 915601491 Problem Benign prostatic hyperplasia with lower urinary tract symptoms N40.1 Active 056975224 Problem Chronic obstructive pulmonary disease, unspecified COPD type J44.9 Active 01468352 Problem Hypertension I10 Active 60944257 ALLERGIES No Known Allergies ENCOUNTERS Encounter Location Date Diagnosis [place] [address] [address] 14 Mar, 2018 Muscle tension headache G44.[address] [facility] [address] [place] [id number] [place] [address]453- 0801 Jan, Hypertension I10 and Chronic obstructive pulmonary disease, unspecified COPD type J44.9 [facility] [address] [place] [id number] [place] [address] 37030- 9375 04 Jan, 2018 Hypertension I10 [place] [address] [place] [id number] [place] [address] 67871- 4698 10 Oct, 2017 Dyspnea on exertion R06.09 ; Essential (primary) hypertension I10 ; Claudication of both lower extremities I73.9 [address] Lung [address] R91.1 [facility] [address] [address]- [address] 05 Sep, 2017 Encounter for immunization Z23 ; Hypertension I10 ; Benign prostatic hyperplasia with lower urinary tract symptoms N40.1 and Chronic obstructive pulmonary disease, unspecified COPD type J44.9 [facility] [address] [place] [id number] [place] [address] 88522- 9419 02 Aug, 2017 Hypertension I10 and Nocturia R35.1 [place] [address] [address] [place] [id number] [place] [address] 51040- 4030 13 Jun, 2017 Dyspnea on exertion R06.09 ; Essential (primary) hypertension I10 ; Claudication of both lower extremities I73.9 and Lung nodule R91.1 [place] [address] [place] [id number] [place] [address] 75706- 9807 09 May, 2017 Chest discomfort R07.89 ; Dyspnea on exertion R06.09 ; Heart palpitations R00.2 ; Hypertension I10 and Tobacco use Z72.0 [place] [address] [place] [id number] [place] [address] 74394- 8720 May, Flank pain R10.9 ; Fever, unspecified fever cause R50.9 and Diarrhea, unspecified type R19.7 [place] [id number] [place] [address] 24095- 8273 Apr, Hypertension I10 ; Nocturia R35.1 ; Other chest pain R07.89 and Chronic obstructive pulmonary disease, unspecified COPD type J44.9 [place] [address] [place] [id number] [place] [address] 24512- 0680 07 Jan, 2017 Nocturia R35.1 ; Hypertension I10 and Screening cholesterol level Z13.220 [place] [address] [place] [id number] [place] [address] 42185- 7192 05 Jan, 2017 Nocturia R35.1 ; Incontinence of feces R15.9 ; Hypertension I10 and Screening cholesterol level Z13.220 [place] [address] [place] [id number] [place] [address] 13471- 4097 Apr, Hypertension I10 [address] [address]- 4651 Mar, Essential (primary) hypertension I10 [place] [address] [place] [id number] [place] [address] 64380- 3898 Oct, Hypertension I10 ; Back pain M54.9 ; Malaise R53.81 ; Nocturia R35.1 and Incontinence of feces R15.9 [facility] [address] [place] [id number] [place] [address] 98813- 4074 29 Sep, 2015 Hypertension I10 ; Malaise R53.81 ; Nocturia R35.1 and Back pain M54.9 [facility] [address] [place] [id number] [place] [address] 82409- 6421 Apr, Essential hypertension, benign 401.1 and Environmental allergies V15.09 [facility] [address] [place] [id number] [place] [address] 90639- 0357 Apr, [facility] [address] [place] [id number] [place] [address] 50103- 7013 Apr, [facility] [address] [place] [id number] [place] [address] 34844- 7881 Jan, [facility] [address] [place] [id number] [place] [address] 02832- 0239 Jan, [facility] [address] [place] [id number] [place] [address] 27536- 4237 Oct, [facility] [address] [place] [id number] [place] [address] 71716- 3121 Oct, [facility] [address] [place] [id number] [place] [address] 81807- 5547 Oct, [facility] [address] [place] [address] 63490- 4262 Oct, [facility] [address] [place] [id number] [place] [address] 76596- 0513 Sep, [facility] [address] [place] [id number] [place] [address] 14717- 3003 Sep, [facility] [address] [place] [id number] [place] [address] 31416- 7312 Sep, [facility] [address] [place] [id number] [place] [address] 96704- 6351 Sep, [facility] [place] [facility] [address] [id number] [place] [address]- 8950 05 Sep, 2013 [facility] [place] [facility] [address] [id number] [place] [address]- 7053 05 Sep, 2013 [facility] [place] [facility] [address] [id number] [place] [address]- 0286 02 Jun, 2013 [facility] [place] [facility] [address] [id number] [place] [address]- 5766 02 Jun, 2013 [facility] [place] [facility] [address] [id number] [place] [address]- 2054 02 Jun, 2013 [facility] [place] [facility] [address] [id number] [place] [address]- 6277 02 Jun, 2013 [facility] [place] [facility] [address] [id number] [place] [address]- 4285 Dec, [facility] [place] [facility] [address] [id number] [place] [address]- 7535 Dec, [facility] [place] [facility] [address] [id number] [place] [address]- 8578 Aug, [facility] [place] [facility] [address] [id number] [place] [address]- 3253 Aug, [facility] [place] [facility] [address] [id number] [place] [address]- 1773 14 Dec, 2012 [facility] [place] [facility] [address] [id number] [place] [address]- 1053 04 Dec, 2012 [facility] [place] [facility] [address] [id number] [place] [address]- 2384 Dec, [facility] [place] [facility] [address] [id number] [place] [address]- 7465 28 Nov, 2012 [facility] [place] [facility] [address] [id number] [place] [address]- 7123 13 Nov, 2012 [facility] [place] [facility] [address] [id number] [place] [address]- 0080 Nov, [facility] [address] [facility] [id number] [place] [address]- 7476 Nov, [facility] [address] [facility] [id number] [address] 0836 Oct, [facility] [address] [facility] [id number] [address] 2586 May, [facility] [address] [facility] [id number] [address]- 2957 May, [facility] [address] [facility] [id number] 3093 Apr, IMMUNIZATIONS No Known Immunizations SOCIAL HISTORY Never Assessed REASON FOR VISIT 2 mo f/u PLAN OF CARE Activity Details Follow Up 6 Months Reason: VITAL SIGNS Height 74 in 2017-10-27 Weight 169 lbs 2017-10-27 Heart Rate 80 bpm 2017-10-27 Oximetry 95 % 2017-10-27 BMI 21.70 kg/m2 2017-10-27 Blood pressure systolic 116 mmHg 2017-10-27 Blood pressure diastolic 64 mmHg 2017-10-27 MEDICATIONS Medication Instructions Dosage Frequency Start Date End Date Duration Status Symbicort 160-4.5 MCG/ACT Inhalation Twice a day 2 puffs 12h Active Avodart 0.5 MG Orally Once a day 1 capsule 24h Sep, Active Lisinopril 10 mg Orally Once a day 1 tablet 24h Apr, 90 days Active Benefiber 1 tablet Orally Once a day as directed 24h Oct, Not-Taking Tamsulosin HCl 0.4 MG Orally Once a day 1 capsule 24h Apr,Oct 90 days Active Lisinopril-Hydrochlorothiazide 20-12.5 TAKE ONE TABLET BY MOUTH DAILY 30 Not-Taking Tizanidine HCl 4 MG Orally at hs prn back pspasm 1 tablet as needed Sep, Not-Taking Lisinopril-Hydrochlorothiazide 20-12.5 MG Orally Once a day 1 tablet 24h Oct, 30 Not-Taking Proventil HFA 108 (90 Base) MCG/ACT Inhalation every 4 hrs 2 puffs as needed 4h Apr, Not-Taking RESULTS No Results PROCEDURES Procedure Date Ordered Result Body Site MEASURE BLOOD OXYGEN LEVEL Oct 27, 2017 INSTRUCTIONS MEDICATIONS ADMINISTERED No Known Medications MEDICAL (GENERAL) HISTORY Type Description Date Medical History hypertension Medical History insomnia Medical History bilateral ear ringing since 2013 Medical History COPD Surgical History angioplasty Surgical History christin-rectal cyst removed
--- OUTSIDE RECORDS SUMMARY | 2018-10-01 10:14 | XMS REPORT | Continuity of Care Document ---
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 of estimated glomerular filtration rate > NRG Serum or plasma glucose measurement (mass/volume) 111 mg/dL 70-105 Serum or plasma calcium measurement (mass/volume) 9.7 mg/dL 8.5-10.1 Serum or plasma total bilirubin measurement (mass/volume) 0.7 mg/dL 0.1-1.0 Serum or plasma alkaline phosphatase measurement (enzymatic activity/volume) 83 U/L 40-136 Serum or plasma aspartate aminotransferase measurement (enzymatic activity/ volume) 27 U/L 5-34 Serum or plasma alanine aminotransferase measurement (enzymatic activity/volume ) 22 U/L 0-55 Serum or plasma protein measurement (mass/volume) 8.0 g/dL 6.4-8.2 Serum or plasma albumin measurement (mass/volume) 4.7 g/dL 3.2-4.5 Magnesium - 05/01/17 08:48 Magnesium 2.2 mg/dL 1.8-2.4 Serum or plasma troponin i.cardiac measurement (mass/volume) - 05/01/17 08:48 Serum or plasma troponin i.cardiac measurement (mass/volume) < ng/ mL <0.30 Myoglobin, serum - 05/01/17 08:48 Myoglobin, serum 72.9 ng/mL 10.0-92.0 Serum or plasma lithium measurement (moles/volume) - 05/01/17 08:48 BNP level 27.7 pg/mL <100.0 CBC With Differential/Platelet - 05/19/17 15:57 WBC 10.4 x10E3/uL 3.4-10.8 RBC 4.15 x10E6/uL 4.14-5.80 Hemoglobin 12.5 g/dL 12.6-17.7 Hematocrit 36.4 % 37.5-51.0 MCV 88 fL 79-97 MCH 30.1 pg 26.6-33.0 MCHC 34.3 g/dL 31.5-35.7 RDW 13.9 % 12.3-15.4 Platelets 247 x10E3/uL 150-379 Neutrophils 72 % Lymphs 19 % Monocytes 9 % Eos 0 % Basos 0 % Neutrophils (Absolute) 7.5 x10E3/uL 1.4-7.0 Lymphs (Absolute) 1.9 x10E3/uL 0.7-3.1 Monocytes(Absolute) 1.0 x10E3/uL 0.1-0.9 Eos (Absolute) 0.0 x10E3/uL 0.0-0.4 Baso (Absolute) 0.0 x10E3/uL 0.0-0.2 Immature Granulocytes 0 % Immature Grans (Abs) 0.0 x10E3/uL 0.0-0.1 Comp. Metabolic Panel (14) - 05/19/17 15:57 Glucose, Serum 78 mg/dL 65-99 BUN 11 mg/dL 6-24 Creatinine, Serum 0.77 mg/dL 0.76-1.27 eGFR If NonAfricn Am 108 mL/min/1.73 >59 eGFR If Africn Am 125 mL/min/1.73 >59 BUN/Creatinine Ratio 14 9-20 Sodium, Serum 140 mmol/L 134-144 Potassium, Serum 4.5 mmol/L 3.5-5.2 Chloride, Serum 97 mmol/L 96-106 Carbon Dioxide, Total 23 mmol/L 18-29 Calcium, Serum 8.8 mg/dL 8.7-10.2 Protein, Total, Serum 6.8 g/dL 6.0-8.5 Albumin, Serum 4.0 g/dL 3.5-5.5 Globulin, Total 2.8 g/dL 1.5-4.5 A/G Ratio 1.4 1.2-2.2 Bilirubin, Total 0.4 mg/dL 0.0-1.2 Alkaline Phosphatase, S 91 IU/L 39-117 AST (SGOT) 22 IU/L 0-40 ALT (SGPT) 16 IU/L 0-44 Automated blood complete blood count (hemogram) panel - 08/11/18 12:15 Blood leukocytes automated count (number/volume) 11.1 10*3/uL 4.3-11.0 Blood erythrocytes automated count (number/volume) 4.38 10*6/uL 4.35-5.85 Venous blood hemoglobin measurement (mass/volume) 13.5 g/dL 13.3-17.7 Blood hematocrit (volume fraction) 40 % 40-54 Automated erythrocyte mean corpuscular volume 90 [foz_us] 80-99 Automated erythrocyte mean corpuscular hemoglobin (mass per erythrocyte) 31 pg 25-34 Automated erythrocyte mean corpuscular hemoglobin concentration measurement ( mass/volume) 34 g/dL 32-36 Automated erythrocyte distribution width ratio 13.8 % 10.0-14.5 Automated blood platelet count (count/volume) 256 10*3/uL 130-400 Automated blood platelet mean volume measurement 10.1 [foz_us] 7.4-10.4 RED CELLS LEUKO REDUCED AS1 - 08/11/18 12:15 RED CELLS LEUKO REDUCED AS1 NOT AVAILABLE NR Blood type T Indirect antibody screen panel - 08/11/18 12:15 ABO+Rh group AP NR Transfusion band number [id number] [facility] Blood group antibody screen NEGATIVE [facility] Blood lactic acid measurement (moles/volume) - 08/11/18 12:15 Blood lactic acid measurement (moles/volume) 1.37 mmol/L 0.50-2.00 PT panel in platelet poor plasma by coagulation assay - 08/11/18 12:15 Prothrombin time (PT) in platelet poor plasma by coagulation assay 13.0 s 12.2-14.7 INR in platelet poor plasma or blood by coagulation assay 1.0 0.8-1.4 Activated partial thromboplastin time (aPTT) in platelet poor plasma bycoagulation assay - 08/11/18 12:15 Activated partial thromboplastin time (aPTT) in platelet poor plasma bycoagulation assay 24 s 24-35 Liver function panel (serum or plasma alk phos, alb, total and direct bili, total protein, ALT, AST) - 08/11/18 12:15 Serum or plasma total bilirubin measurement (mass/volume) 0.5 mg/dL 0.1-1.0 Serum or plasma alkaline phosphatase measurement (enzymatic activity/volume) 64 U/L 40-136 Serum or plasma aspartate aminotransferase measurement (enzymatic activity/ volume) 102 U/L 5-34 Serum or plasma alanine aminotransferase measurement (enzymatic activity/volume ) 67 U/L 0-55 Serum or plasma protein measurement (mass/volume) 7.0 g/dL 6.4-8.2 Serum or plasma albumin measurement (mass/volume) 4.5 g/dL 3.2-4.5 Bilirubin direct 0.2 mg/dL 0.0-0.3 Serum or plasma indirect bilirubin measurement (mass/volume) 0.3 mg/ dL NR Whole blood basic metabolic panel - 08/11/18 12:15 Serum or plasma sodium measurement (moles/volume) 139 mmol/L 135-145 Serum or plasma potassium measurement (moles/volume) 3.5 mmol/L 3.6-5.0 Serum or plasma chloride measurement (moles/volume) 103 mmol/L 98-107 Carbon dioxide 26 mmol/L 21-32 Serum or plasma anion gap determination (moles/volume) 10 mmol/L 5-14 Serum or plasma urea nitrogen measurement (mass/volume) 12 mg/dL 7-18 Serum or plasma creatinine measurement (mass/volume) 0.93 mg/dL 0.60-1.30 Serum or plasma urea nitrogen/creatinine mass ratio 13 NRG Serum or plasma creatinine measurement with calculation of estimated glomerular filtration rate > NRG Serum or plasma glucose measurement (mass/volume) 143 mg/dL 70-105 Serum or plasma calcium measurement (mass/volume) 9.2 mg/dL 8.5-10.1 Serum or plasma phosphate measurement (mass/volume) - 08/11/18 12:15 Serum or plasma phosphate measurement (mass/volume) 2.5 mg/dL 2.3-4.7 Magnesium - 08/11/18 12:15 Magnesium 2.2 mg/dL 1.8-2.4 Serum or plasma troponin i.cardiac measurement (mass/volume) - 08/11/18 12:15 Serum or plasma troponin i.cardiac measurement (mass/volume) < ng/ mL <0.30 Fibrinogen measurement in platelet poor plasma by coagulation assay (mass/ volume) - 08/11/18 12:15 Fibrinogen measurement in platelet poor plasma by coagulation assay (mass/ volume) 269 mg/dL 221-496 Serum or plasma ethanol measurement (mass/volume) - 08/11/18 12:15 Serum or plasma ethanol measurement (mass/volume) < mg/dL <10 Myoglobin, serum - 08/11/18 12:15 Myoglobin, serum 1775.7 ng/mL 10.0-92.0 Fibrin D-dimer FEU measurement in platelet poor plasma (mass/volume) - 12:15 Fibrin D-dimer FEU measurement in platelet poor plasma (mass/volume) 10.07 ug/mL 0.00-0.49 Complete urinalysis with reflex to culture - 08/11/18 12:22 Urine color determination YELLOW NRG Urine clarity determination CLEAR NRG Urine pH measurement by test strip 6 5-9 Specific gravity of urine by test strip 1.015 1.016- 1.022 Urine protein assay by test strip, semi-quantitative 2+ NEGATIVE Urine glucose detection by automated test strip NEGATIVE NEGATIVE Erythrocytes detection in urine sediment by light microscopy NEGATIVE NEGATIVE Urine ketones detection by automated test strip NEGATIVE NEGATIVE Urine nitrite detection by test strip NEGATIVE NEGATIVE Urine total bilirubin detection by test strip NEGATIVE NEGATIVE Urine urobilinogen measurement by automated test strip (mass/volume) NORMAL NORMAL Urine leukocyte esterase detection by dipstick NEGATIVE NEGATIVE Automated urine sediment erythrocyte count by microscopy (number/high power field) NONE NRG Automated urine sediment leukocyte count by microscopy (number/high power field ) NONE NRG Bacteria detection in urine sediment by light microscopy NEGATIVE NRG Squamous epithelial cells detection in urine sediment by light microscopy NONE NRG Crystals detection in urine sediment by light microscopy NONE NRG Casts detection in urine sediment by light microscopy NONE NRG Mucus detection in urine sediment by light microscopy NEGATIVE NRG Complete urinalysis with reflex to culture NO NRG Urine drug screening test - 08/11/18 12:22 Urine phencyclidine detection by screening method NEGATIVE NEGATIVE Urine benzodiazepines detection by screening method NEGATIVE NEGATIVE Urine cocaine detection NEGATIVE NEGATIVE Urine amphetamines detection by screening method NEGATIVE NEGATIVE Urine methamphetamine detection by screening method NEGATIVE NEGATIVE Urine cannabinoids detection by screening method NEGATIVE NEGATIVE Urine opiates detection by screening method NEGATIVE NEGATIVE Urine barbiturates detection NEGATIVE NEGATIVE Screening urine tricyclic antidepressants detection NEGATIVE NEGATIVE Urine methadone detection by screening method NEGATIVE NEGATIVE Urine oxycodone detection NEGATIVE NEGATIVE Urine propoxyphene detection NEGATIVE NEGATIVE Encounters ACCT No. Visit Date/Time Discharge Status Pt. Type Provider Facility Loc./Unit Complaint [id number] 10/31/2014 13:52:00 10/31/2014 23:59:59 CLS Outpatient MEGAN MAYES APRN [id number] 10/24/2014 13:18:00 10/24/2014 23:59:59 CLS Outpatient MEGAN MAYES APRN [id number] 10/16/2014 13:21:00 10/16/2014 23:59:59 CLS Outpatient MEGAN MAYES APRN [id number] 08/24/2013 15:38:00 08/24/2013 23:59:59 CLS Outpatient SARAH GIBBONS, PARVEEN [place] [id number] 12/29/2012 12:18:00 12/29/2012 23:59:59 CLS Outpatient [id number] 12/15/2012 15:22:00 12/15/2012 23:59:59 CLS Outpatient ANIKET LUCIO DO [id number] 11/21/2012 14:08:00 11/21/2012 23:59:59 CLS Outpatient ANIKET LUCIO DO [id number] 11/09/2012 08:24:00 11/09/2012 23:59:59 CLS Outpatient [id number] 01/23/2017 10:08:00 Document Registration [id number] 10/15/2014 15:03:35 ACT Document Registration [id number] 05/20/2017 08:06:00 Document Registration [id number] 09/21/2018 11:40:00 09/21/2018 23:59:59 CLS Outpatient EMMA GIBBONS, TRU [facility] [id number] 08/11/2018 12:14:00 08/11/2018 14:10:00 DIS Emergency MICHAEL GIBBONS, TRINIDAD [facility] ER FALL [id number] 08/24/2017 09:33:00 08/24/2017 13:40:00 DIS Outpatient PIERRE CUEVAS DO [facility] ENDO CHRONIC DIARRHEA [id number] 08/18/2017 15:00:00 08/18/2017 15:32:00 DIS Outpatient PIERRE CUEVAS DO [facility] PREOP COLONOSCOPY [id number] 08/09/2017 09:59:00 08/09/2017 23:59:59 CLS Outpatient DU SOTO HELMET COVERER [facility] RAD LUNG NODULES [id number] 07/28/2017 11:38:00 07/28/2017 23:59:59 CLS Outpatient DU SOTO HELMET COVERER [facility] RT LUNG NODULES [id number] 07/13/2017 12:26:00 07/13/2017 23:59:59 CLS Outpatient BAIMA, EMRA L STATION ENGINEER [employer] [facility] RAD I73.9 [id number] 06/23/2017 10:42:00 06/23/2017 23:59:59 CLS Outpatient BAIMA, MERA L STATION ENG[employer] [facility] RAD I77.89 ENLARGEMENT OF AORTIC ROOT [id number] 06/10/2017 07:08:00 06/10/2017 23:59:59 CLS Outpatient BAIMA, MERA L STATION ENGINE[employer] [facility] CARD CHEST DISCOMFORT R07.89 [id number] 06/08/2017 10:30:00 06/08/2017 23:59:59 CLS Outpatient BAIMA, MERA L [employer]ATION ENG[employer] [facility] CARD R07.89 CHEST DISCOMFORT [id number] 05/01/2017 08:48:00 05/01/2017 10:19:00 DIS Emergency MILLY GIBBONS, ANIBAL [facility] ER CP [id number] 10/15/2014 15:02:00 10/15/2014 23:59:59 CLS Outpatient MYLES GIBBONS FACC, BECCA KING CCDS [facility] LAB HYPERTENSION NOS [id number] 10/08/2014 19:37:00 10/08/2014 21:16:00 DIS Emergency SHANIA MCWILLIAMS DO [facility] ER BLEEDING [id number] 10/01/2014 10:39:00 10/02/2014 15:18:00 DIS Inpatient MYLES GIBBONS FACC, BECCA KING CCDS [facility] CSD CHEST PAIN VENTRICULAR TACHYCARDIA S/P CODE BLUE [id number] 06/19/2014 12:43:00 06/19/2014 16:28:00 DIS Emergency TRINIDAD RODRIGUEZ MD [facility] ER MULTIPLE ABSCESSES/ POSS SPIDER BITES ABD PAIN [id number] 03/28/2013 14:11:00 03/29/2013 11:48:00 DIS Inpatient GEOVANNY BERNSTEIN MD [facility] ICU ELECTRICAL INJURY [id number] 10/01/2018 10:06:00 ACT Emergency TRINIDAD RODRIGUEZ MD [facility] ER LT HIP PAIN [id number] 02/02/2018 06:32:00 Document Registration [id number] 02/02/2018 06:32:00 Document Registration [id number] 02/02/2018 06:32:00 Document Registration [id number] 02/02/2018 06:32:00 Document Registration [id number] 12/14/2012 13:00:00 Document Registration [id number] 12/08/2012 07:43:00 Document Registration [id number] 11/10/2012 09:39:00 Document Registration [id number] 04/28/2011 17:10:00 Document Registration [id number] 06/13/2008 11:08:00 Document Registration
[2018-10-01] MEDS ORDERED: fentaNYL INJECTION 100 MCG/2 ML AMP IVP ONE (10:15)
--- NOTE | 2018-10-01 11:12 | Diagnostic Imaging Report ---
Indication: Fall with left chest pain. Comparison: 08/11/2018. Discussion: Single frontal view of the chest was obtained. Multiple subacute to chronic nondisplaced right rib fractures, new from prior. Elevated right hemidiaphragm. Normal heart size. Atelectasis is present within the lingula. No pneumothorax or pleural fluid. No new displaced rib fracture identified. Impression: 1. No acute cardiopulmonary process. Chronic changes as discussed. Dictated by: Dictated on workstation # [id number]
--- NOTE | 2018-10-01 11:13 | Diagnostic Imaging Report ---
INDICATION: Left rib pain. Fell. Three views FINDINGS: No rib fractures are demonstrated. The left lung is well-aerated with no pneumothorax or pleural effusion. IMPRESSION: Negative left ribs. Dictated by: Dictated on workstation # [id number]
--- NOTE | 2018-10-01 11:14 | Diagnostic Imaging Report ---
Indication: Fall with left hip pain. Comparison: 08/11/2018. Discussion: AP view of the pelvis was obtained. Interval open reduction internal fixation of the previous left femoral intertrochanteric fracture is noted. There is some callus formation though healing is incomplete. No acute fracture or dislocation otherwise. Alignment is anatomic. Soft tissues are unremarkable. Impression: 1. Interval ORIF of the left hip. No hardware complications. Dictated by: Dictated on workstation # [id number]
--- NOTE | 2018-10-01 11:16 | Diagnostic Imaging Report ---
INDICATION: Fall with left hip pain. COMPARISON: 08/11/2018. DISCUSSION: Four views of the left femur were obtained. Interval open reduction internal fixation of the left femoral intertrochanteric fracture with an intramedullary [place] and compression screws. Some healing changes are noted at the fracture line though the majority of the fracture line is still clearly evident. No hardware loosening or other acute fracture identified. No dislocation. Soft tissues are unremarkable. IMPRESSION: 1. Interval ORIF of the left femoral intertrochanteric fracture without hardware complication. Dictated by: Dictated on workstation # [id number]
--- NOTE | 2018-10-01 11:20 | ED Fall/Injury ---
General Chief Complaint: Trauma-Non Activation Stated Complaint: LT HIP PAIN Nursing Triage Note: ASSISTED FROM CAR TO WC AND THEN TO ROOM 03. STATES HE WAS GOING FROM HIS WALKER TO HIS WC AND THE WC WAS NOT LOCKED AND HIS FEET BECAME TANGLED ET CAUSING HIM TO FALL ONTO HIS LEFT HIP. Source: patient, family Exam Limitations: no limitations History of Present Illness Date Seen by Provider: Oct 01, 2018 Time Seen by Provider: 10:10 Initial Comments This 48-year-old gentleman is presenting to the emergency room with complaints of left hip pain. He was trying to transfer into his wheelchair by himself this morning and fell onto his left hip. He also has some left lateral chest wall pain where he hit the ground. He denies any head or neck injury. Patient has hardware in the left hip due to prior left hip fracture. Patient sustained numerous serious injuries when he had a fall from a window in July. Allergies and Home Medications Allergies Coded Allergies: acetaminophen (Verified Allergy, Severe, itching, 10/01/18) oxycodone (Verified Allergy, Severe, itching, 10/01/18) Home Medications Lisinopril 10 Mg Tablet, 10 MG PO DAILY, (Reported) Tamsulosin HCl 0.4 Mg Cap, 0.4 MG PO HS, (Reported) Patient Home Medication List Home Medication List Reviewed: Yes Review of Systems Review of Systems Constitutional: no symptoms reported Eyes: No Symptoms Reported Ears, Nose, Mouth, Throat: no symptoms reported Respiratory: no symptoms reported Cardiovascular: no symptoms reported Gastrointestinal: no symptoms reported Genitourinary: no symptoms reported Musculoskeletal: see HPI Skin: no symptoms reported Psychiatric/Neurological: No Symptoms Reported Past Howlzhy-Qbqxbd-Kveqxi Hx Patient Social History Alcohol Use: Denies Use Alcohol Beverage of Choice: Beer Recreational Drug Use: No Smoking Status: Former Smoker Type Used: Cigarettes 2nd Hand Smoke Exposure: Yes Recent Foreign Travel: No Contact w/Someone Who Travel: No Recent Infectious Disease Expo: No Recent Hopitalizations: Yes Immunizations Up To Date Tetanus Booster (TDap): Less than 5yrs Date of Influenza Vaccine: Oct 02, 2014 Seasonal Allergies Seasonal Allergies: No Past Medical History Surgeries: Yes (RECTAL CYST, HEART CATH) Orthopedic Respiratory: Yes (possible COPD recently tested no results back) COPD Cardiac: Yes ( HEART CATH NOT TAKING B/P MEDS STOPPED ON OWN) Hypertension Neurological: Yes (RECENT BRAIN BLEED DUE TO FALL) Traumatic Brain Injury Reproductive Disorders: No Sexually Transmitted Disease: No HIV/AIDS: No Gastrointestinal: Yes (bowel incontinence) Musculoskeletal: Yes (BULGING DISK, narrowing of spine ) Chronic Back Pain Endocrine: No Hearing Impairment: Denies Cancer: No Psychosocial: No Integumentary: No Blood Disorders: No Adverse Reaction/Blood Tranf: No Family Medical History FHx: esophageal cancer FHx: lung cancer Heart Disease, Cancer Physical Exam Vital Signs Vital Signs - First Documented 10/01/18 10:05 Temp 99.9 Pulse 104 Resp 16 B/P (MAP) 139/94 (109) Pulse Ox 98 O2 Delivery Room Air Capillary Refill : Less Than 3 Seconds Height, Weight, BMI Height: 6'2.00" Weight: 188lbs. 0.0oz. 85.529353ts; 21.09 BMI Method:Stated General Appearance: WD/WN, mild distress HEENT: PERRL/EOMI, normal ENT inspection Neck: non-tender, normal inspection Cardiovascular: regular rate, rhythm, no edema, no murmur Respiratory: lungs clear, normal breath sounds, no respiratory distress, no accessory muscle use Gastrointestinal: non tender, soft Extremities: normal inspection, no pedal edema Neurologic/Psychiatric: rate manager II-XII nml as tested, no motor/sensory deficits, alert, normal mood/affect, oriented x 3 Skin: normal color, warm/dry Rika Coma Score Best Eye Response: (4) Open Spontaneously Best Verbal Response: (5) Oriented Best Motor Response: (6) Obeys Commands [place] Total: 15 Progress/Results/Core Measures Results/Orders My Orders Orders - TRINIDAD RODRIGUEZ MD Saline Lock/Iv-Start (10/01/18 10:14) Chest 1 View, Ap/Pa Only (10/01/18 10:14) Ribs, Left 2-3 Views (10/01/18 10:14) Femur, Left, 2 Views (10/01/18 10:14) Pelvis (10/01/18 10:14) Fentanyl Injection (Sublimaze Injection (10/01/18 10:15) Ketorolac Injection (Toradol Injection) (10/01/18 11:30) Medications Given in ED Current Medications Medications Dose Ordered Sig/Ryan Route Start Time Stop Time Status Last Admin Dose Admin Fentanyl Citrate 75 mcg ONCE ONCE IVP 10/01/18 10:15 10/01/18 10:16 DC 10/01/18 10:19 75 MCG Ketorolac Tromethamine 15 mg ONCE ONCE IVP 10/01/18 11:30 10/01/18 11:31 DC 10/01/18 11:35 15 MG Vital Signs/I&O 10/01/18 10/01/18 10:05 11:40 Temp 99.9 98.0 Pulse 104 78 Resp 16 16 B/P (MAP) 139/94 (109) 133/91 (105) Pulse Ox 98 98 O2 Delivery Room Air Room Air Blood Pressure Mean: 109 Progress Progress Note : Progress Note Patient was initially treated with fentanyl. Imaging studies were reviewed and were negative for acute injuries. He was then treated with Toradol. Diagnostic Imaging Diagonstic Imaging: Xray Plain Films/CT/US/NM/MRI: chest Comments Left rib x-ray viewed by me and report reviewed. See report below: NAME: ALLISONANDRIA MED REC#: [id number] PT STATUS: REG ER : 1970 PHYSICIAN: TRINIDAD RODRIGUEZ MD ADMIT DATE: 10/01/18/ER Draft Date of Exam:10/01/18 RIBS, LEFT 2-3 VIEWS INDICATION: Left rib pain. Fell. Three views FINDINGS: No rib fractures are demonstrated. The left lung is well-aerated with no pneumothorax or pleural effusion. IMPRESSION: Negative left ribs. Dictated on workstation # [id number] Dict: 10/01/18 1101 Trans: 10/01/18 1112 [facility] [id number] Interpreted by: SANDRA JAMES MD Diagonstic Imaging: Xray Plain Films/CT/US/NM/MRI: pelvis Comments Pelvis x-ray viewed by me and report reviewed. See report below: NAME: KEEGANANDRIA Mago MED REC#: [id number] PT STATUS: REG ER : 1970 PHYSICIAN: TRINIDAD RODRIGUEZ MD ADMIT DATE: 10/01/18/ER Draft Date of Exam:10/01/18 PELVIS Indication: Fall with left hip pain. Comparison: 08/11/2018. Discussion: AP view of the pelvis was obtained. Interval open reduction internal fixation of the previous left femoral intertrochanteric fracture is noted. There is some callus formation though healing is incomplete. No acute fracture or dislocation otherwise. Alignment is anatomic. Soft tissues are unremarkable. Impression: 1. Interval ORIF of the left hip. No hardware complications. Dictated on workstation # [id number] Dict: 10/01/18 1058 Trans: 10/01/18 1113 [facility] [id number] Interpreted by: TRU SAHA MD Diagonstic Imaging: Xray Plain Films/CT/US/NM/MRI: chest Comments Chest x-ray viewed by me and report reviewed. See report below: NAME: ANDRIA ALLISON MED REC#: [id number] PT STATUS: REG ER : 1970 PHYSICIAN: TRINIDAD RODRIGUEZ MD ADMIT DATE: 10/01/18/ER Draft Date of Exam:10/01/18 CHEST 1 VIEW, AP/PA ONLY Indication: Fall with left chest pain. Comparison: 08/11/2018. Discussion: Single frontal view of the chest was obtained. Multiple subacute to chronic nondisplaced right rib fractures, new from prior. Elevated right hemidiaphragm. Normal heart size. Atelectasis is present within the lingula. No pneumothorax or pleural fluid. No new displaced rib fracture identified. Impression: 1. No acute cardiopulmonary process. Chronic changes as discussed. Dictated on workstation # [id number] Dict: 10/01/18 1100 Trans: 10/01/18 1112 [facility] [id number] Interpreted by: TRU SAHA MD Diagonstic Imaging: Xray Plain Films/CT/US/NM/MRI: leg Comments Left femur x-ray viewed by me and report reviewed. See report below: NAME: ANDRIA ALLISON MED REC#: [id number] PT STATUS: REG ER : 1970 PHYSICIAN: TRINIDAD RODRIGUEZ MD ADMIT DATE: 10/01/18/ER Draft Date of Exam:10/01/18 FEMUR, LEFT, 2 VIEWS INDICATION: Fall with left hip pain. COMPARISON: 08/11/2018. DISCUSSION: Four views of the left femur were obtained. Interval open reduction internal fixation of the left femoral intertrochanteric fracture with an intramedullary [place] and compression screws. Some healing changes are noted at the fracture line though the majority of the fracture line is still clearly evident. No hardware loosening or other acute fracture identified. No dislocation. Soft tissues are unremarkable. IMPRESSION: 1. Interval ORIF of the left femoral intertrochanteric fracture without hardware complication. Dictated on workstation # [id number] Dict: 10/01/18 1100 Trans: 10/01/18 1115 [facility] [id number] Interpreted by: TRU SAHA MD Departure Impression Primary Impression: Fall on same level from tripping as cause of accidental injury Additional Impression: Left hip pain Disposition: 01 HOME, SELF-CARE Condition: Improved Departure-Patient Inst. Decision time for Depature: 11:20 Referrals: [facility] (PCP/Family) Primary Care Physician Patient Instructions: Contusion (DC) Add. Discharge Instructions: Your pain is likely from a contusion of your hip. You may use your pain medication as previously prescribed. Icing in 20 minute intervals may also be helpful. Please notify your orthopedic doctor of this incident on Wednesday and keep your follow up appointment on Wednesday. Please request assistance with transfers and avoid weightbearing as much as possible until cleared by your doctor. Return to care if symptoms worsen. All discharge instructions reviewed with patient and/or family. Voiced understanding. TRINIDAD RODRIGUEZ MD Oct 01, 2018 11:20
[2018-10-01] MEDS ORDERED: KETOROLAC 30 MG/ML VIAL IVP ONE (11:30)
[2018-10-01 11:40] VITALS: BP 133/91
== END 2018-10-01 11:40 | disposition home or self-care (01) ==
LOC: EDUNIT# 10:05 → ER 10:06
DX: M25.552 Pain in left hip (principal); R07.81 Pleurodynia; J44.9 Chronic obstructive pulmonary disease, unspecified; I10 Essential (primary) hypertension; R40.2142 Coma scale, eyes open, spontaneous, at arrival to emergency department; R40.2252 Coma scale, best verbal response, oriented, at arrival to emergency department; R40.2362 Coma scale, best motor response, obeys commands, at arrival to emergency department; Z87.820 Personal history of traumatic brain injury; Z87.19 Personal history of other diseases of the digestive system; Z80.1 Family history of malignant neoplasm of trachea, bronchus and lung; Z80.0 Family history of malignant neoplasm of digestive organs; Z88.5 Allergy status to narcotic agent; Z87.891 Personal history of nicotine dependence; Z95.9 Presence of cardiac and vascular implant and graft, unspecified; Z88.8 Allergy status to other drugs, medicaments and biological substances; V00.811A Fall from moving wheelchair (powered), initial encounter; W22.09XA Striking against other stationary object, initial encounter
CPT/HCPCS: 71045; 71100; 72170; 73552

== ENCOUNTER → 2018-12-22 | Outpatient (CLI) | payer MEDICAID ==
[2018-12-22 12:00] LABS: BUN/CREATININE RATIO 18; CREATININE SERUM 0.79 MG/DL (0.60-1.30); GFR ESTIMATED > 60
== END ==
LOC: LAB 11:30
PROVIDERS: ATTEND Nurse Practitioner Family
DX: R91.8 Other nonspecific abnormal finding of lung field (principal); R06.00 Dyspnea, unspecified; J44.9 Chronic obstructive pulmonary disease, unspecified; J30.9 Allergic rhinitis, unspecified; F17.200 Nicotine dependence, unspecified, uncomplicated; Z87.820 Personal history of traumatic brain injury
CPT/HCPCS: 36415; 82565; 84520

== ENCOUNTER → 2018-12-26 | Outpatient (CLI) | payer MEDICAID ==
--- NOTE | 2018-12-26 09:38 | Diagnostic Imaging Report ---
CLINICAL INDICATION: Patient had head injury on July 2018 with two brain bleeds and percussion. Patient currently having left leg weakness. EXAM: Axial CT scan of brain performed without and with 80 cc Omnipaque 350 IV contrast. COMPARISON: CT scan of the head without IV contrast dated 08/11/2018. FINDINGS: There is skull base streak artifact which obscures portions of the cerebellum and brainstem. There is no evidence of acute cerebral infarct, intracranial hemorrhage, or gross mass effect. There is no abnormal IV contrast enhancement. The brain parenchymal volume appears appropriate for patient's age. There is normal bains-white matter distinction. There is no significant midline shift or herniation. There is no evidence of hydrocephalus. The basal cisterns are unremarkable. The skull, extracranial soft tissue, and orbits are unremarkable. The paranasal sinuses are unremarkable. Temporal bones show no significant abnormality. IMPRESSION: Unremarkable CT scan of the brain. Dictated by: Dictated on workstation # [id number]
== END ==
LOC: RAD 08:35
PROVIDERS: ATTEND Nurse Practitioner Community Health
DX: F07.81 Postconcussional syndrome (principal); R53.1 Weakness
CPT/HCPCS: 70470

== ENCOUNTER → 2018-12-27 | Outpatient (CLI) | payer MEDICAID ==
[~2018-12-27] MED LIST changes: +IOHEXOL 350 MG/ML 100 ML (OMNIPAQUE 350) VIAL IV ONE; +NS 100 ML (IVPB) BAG IV ONE; +RECEIVED CONTRAST 20 ML VIAL IV SCH
--- NOTE | 2018-12-27 15:30 | Diagnostic Imaging Report ---
PROCEDURE: CT chest with contrast only. TECHNIQUE: Multiple contiguous axial images were obtained through the chest after administration of intravenous contrast. INDICATION: Left lung nodules and COPD. COMPARISON: Correlation is made with prior CT chest from 08/11/2018. FINDINGS: No axillary lymphadenopathy is identified. No mediastinal or hilar lymphadenopathy is seen. There is no pericardial or pleural fluid detected. Paraseptal and centrilobular emphysematous changes in the upper lobes is again noted. Previously noted pulmonary contusions on the right as well as a small right pneumothorax has resolved. There is some linear atelectasis that has developed in the lingula and right lower lobe. No parenchymal mass is seen. There is some mild subsegmental atelectasis in the left lower lobe. Multiple healed fractures are seen involving the right clavicle as well as numerous right-sided ribs. Upper abdomen demonstrates hepatic steatosis. IMPRESSION: Resolution of previously noted right-sided contusions and pneumothorax. There is subsegmental atelectasis in the lingula and bilateral lower lobes. There are healing right-sided rib fractures and clavicle fracture. No other significant abnormality is detected. Dictated by: Dictated on workstation # [id number]
== END ==
LOC: RAD 13:38
PROVIDERS: ATTEND Nurse Practitioner Family
DX: J44.9 Chronic obstructive pulmonary disease, unspecified (principal); J30.9 Allergic rhinitis, unspecified; R91.8 Other nonspecific abnormal finding of lung field; S06.9X9A Unspecified intracranial injury with loss of consciousness of unspecified duration, initial encounter; J98.11 Atelectasis; S42.001D Fracture of unspecified part of right clavicle, subsequent encounter for fracture with routine healing; S22.41XD Multiple fractures of ribs, right side, subsequent encounter for fracture with routine healing; F17.200 Nicotine dependence, unspecified, uncomplicated
CPT/HCPCS: 71260

== ENCOUNTER 2019-01-09 09:20 | Outpatient (RCR) | payer MEDICAID ==
[~2019-01-09 09:20] MED LIST changes: -IOHEXOL 350 MG/ML 100 ML (OMNIPAQUE 350) VIAL IV ONE; -NS 100 ML (IVPB) BAG IV ONE; -RECEIVED CONTRAST 20 ML VIAL IV SCH
== END 2019-01-09 11:46 | disposition home or self-care (01) ==
PROVIDERS: ATTEND Orthopaedic Surgery
DX: S72.102D Unspecified trochanteric fracture of left femur, subsequent encounter for closed fracture with routine healing (principal); S42.001D Fracture of unspecified part of right clavicle, subsequent encounter for fracture with routine healing; X58.XXXD Exposure to other specified factors, subsequent encounter

== ENCOUNTER → 2019-02-01 | Outpatient (CLI) | payer MEDICAID ==
[~2019-02-01] MED LIST changes: +RT-ALBUTEROL SULF 2.5 MG/3 ML PRE-MIX VIAL INH ONE
== END ==
LOC: RAD 12:34
PROVIDERS: ATTEND Nurse Practitioner Family
DX: J44.9 Chronic obstructive pulmonary disease, unspecified (principal); S06.9X0A Unspecified intracranial injury without loss of consciousness, initial encounter; J30.9 Allergic rhinitis, unspecified; R91.8 Other nonspecific abnormal finding of lung field; F17.200 Nicotine dependence, unspecified, uncomplicated
CPT/HCPCS: 94060; 94726; 94729

== ENCOUNTER 2019-04-26 11:48 | Emergency (ER) | payer MEDICAID ==
[~2019-04-26] VITALS: Ht 188 cm; Wt 91.6 kg
[~2019-04-26 11:48] MED LIST changes: -RT-ALBUTEROL SULF 2.5 MG/3 ML PRE-MIX VIAL INH ONE
--- NOTE | 2019-04-26 11:48 | NUR ---
Uriel clifton in [facility] - 04/26/19 at [address] BACK [address].
--- NOTE | 2019-04-26 13:02 | ED Lower Extremity ---
General Chief Complaint: Lower Extremity Stated Complaint: L ANKLE INJ Nursing Triage Note: Pt to triage via ed w/c by s/o @ side. a&ox4. c/o pain to lt lower extremity.Reports @ approx 1100 on this day, he was closing a ladder when it "collapsed" on his lt ankle. Pt states, "my my left foot feels numb." Cap refill <3 seconds. Distal pulses intact. No obvious deformity noted. Nursing Sepsis Screen: No Definite Risk History of Present Illness Date Seen by Provider: Apr 26, 2019 Time Seen by Provider: 12:15 Initial Comments 48 year old male presents with left ankle pain. He was trying to close his ladder and get inside quickly before the rain. His ladder collapsed and fell onto his left ankle. He denies any additional injuries. He had a significant fall off his ladder last fall, multiple fractures and brain bleed. He was transferred to [place]. He had a left hip fx and has follow up tomorrow for that. He denies LOC, head injury or other complaints at this time. He did not take any medication prior to presenting here. He noted pain and swelling to medial aspect of left ankle. Ice pack to left ankle Onset: just prior to arrival Severity: mild Pain/Injury Location: left ankle Method of Injury: direct blow (ladder collapsed and fell onto left ankle) Modifying Factors: Improves With Cold Therapy, Improves With Rest Allergies and Home Medications Allergies Coded Allergies: acetaminophen (Verified Allergy, Severe, itching, 10/01/18) oxycodone (Verified Allergy, Severe, itching, 10/01/18) Home Medications Lisinopril 10 Mg Tablet, 10 MG PO DAILY, (Reported) Tamsulosin HCl 0.4 Mg Cap, 0.4 MG PO HS, (Reported) Tramadol HCl 50 Mg Tablet, 50 MG PO Q6H PRN for PAIN Prescribed by: COTY SANTORO on 04/26/19 1326 Patient Home Medication List Home Medication List Reviewed: Yes Review of Systems Constitutional: no symptoms reported, see HPI Musculoskeletal: see HPI, joint pain (left ankle) All Other Systems Reviewed Negative Unless Noted: Yes Past Zouwpme-Fkgvhb-Cvtini Hx Past Med/Social Hx: Reviewed Nursing Past Med/Soc Hx Patient Social History Alcohol Use: Occasionally Uses Number of Drinks Today: 0 Alcohol Beverage of Choice: Beer Recreational Drug Use: No Smoking Status: Former Smoker Type Used: Cigarettes 2nd Hand Smoke Exposure: Yes Recent Foreign Travel: No Contact w/Someone Who Travel: No Recent Infectious Disease Expo: No Recent Hopitalizations: Yes Immunizations Up To Date Tetanus Booster (TDap): Less than 5yrs Date of Influenza Vaccine: Oct 02, 2014 Seasonal Allergies Seasonal Allergies: No Past Medical History Surgeries: Yes (RECTAL CYST, HEART CATH) Orthopedic Respiratory: Yes (possible COPD recently tested no results back) COPD Cardiac: Yes ( HEART CATH NOT TAKING B/P MEDS STOPPED ON OWN) Hypertension Neurological: Yes (RECENT BRAIN BLEED DUE TO FALL) Traumatic Brain Injury Reproductive Disorders: No Sexually Transmitted Disease: No HIV/AIDS: No Gastrointestinal: Yes (bowel incontinence) Musculoskeletal: Yes (BULGING DISK, narrowing of spine ) Chronic Back Pain Endocrine: No Hearing Impairment: Denies Cancer: No Psychosocial: No Integumentary: No Blood Disorders: No Adverse Reaction/Blood Tranf: No Family Medical History FHx: esophageal cancer FHx: lung cancer Heart Disease, Cancer Physical Exam Vital Signs Vital Signs - First Documented 04/26/19 12:03 Temp 96.9 Pulse 92 Resp 18 B/P (MAP) 116/95 (102) Pulse Ox 99 O2 Delivery Room Air Capillary Refill : Less Than 3 Seconds Height, Weight, BMI Height: 6'2.00" Weight: 202lbs. 0.0oz. 91.186927so; 21.09 BMI Method:Stated General Appearance: WD/WN, no apparent distress Cardiovascular: normal peripheral pulses, regular rate, rhythm, no murmur Respiratory: chest non-tender, lungs clear, normal breath sounds Ankles: right ankle bone tenderness (medial malleolus), right ankle limited range of motion (secondary to pain), right ankle pain, right ankle soft tissue tenderness (medial greater than lateral), right ankle swelling Neurologic/Tendon: normal sensation, normal motor functions, normal tendon functions Neurologic/Psychiatric: no motor/sensory deficits, alert, normal mood/affect, oriented x 3 Skin: normal color, warm/dry Lymphatic: no adenopathy Progress/Results/Core Measures Results/Orders My Orders Orders - COTY SANTORO Ankle, Left, 3 Views (04/26/19 12:37) Tramadol Tablet (Ultram Tablet) (04/26/19 12:45) Medications Given in ED Current Medications Medications Dose Ordered Sig/Ryan Route Start Time Stop Time Status Last Admin Dose Admin Tramadol HCl 50 mg ONCE ONCE PO 04/26/19 12:45 04/26/19 12:46 DC 04/26/19 13:00 50 MG Vital Signs/I&O 04/26/19 04/26/19 12:03 13:30 Temp 96.9 96.9 Pulse 92 68 Resp 18 18 B/P (MAP) 116/95 (102) 121/76 (91) Pulse Ox 99 99 O2 Delivery Room Air Room Air Blood Pressure Mean: 102 Progress Progress Note : Time: 12:15 Progress Note Patient seen and evaluated, ice pack to left ankle. We'll obtain x-ray of the left ankle and reevaluate. 1300 no fractures or dislocations noted on x-ray, 4 inch Corona wrap applied to left ankle. Patient options and concerns answered, discharge instructions and return precautions reviewed. Diagnostic Imaging Diagonstic Imaging: Xray Plain Films/CT/US/NM/MRI: ankle Comments [place], [place] NAME: ANDRIA ALLISON MED REC#: [id number] PT STATUS: REG ER : 1970 PHYSICIAN: COTY SANTORO ADMIT DATE: 04/26/19/ER Draft Date of Exam:04/26/19 ANKLE, LEFT, 3 VIEWS PATIENT HISTORY: Left ankle injury.. TECHNIQUE: Three views of the left ankle. COMPARISON: 08/11/2018 FINDINGS: No acute fracture or dislocation is seen in the left ankle. Ankle mortise is symmetric and the talar dome is intact. There is moderate medial soft tissue edema. Joint spaces are preserved. IMPRESSION: 1. No acute osseous abnormalities seen in the left ankle. There is moderate medial soft tissue edema. Dictated on workstation # [id number] Dict: 04/26/19 1300 Trans: 04/26/19 1304 CV [id number] Interpreted by: SCOT KHAN MD Electronically signed by: Reviewed: Reviewed by Me Departure Impression Primary Impression: Contusion of left ankle Qualified Codes: S90.02XA - Contusion of left ankle, initial encounter Additional Impression: Left ankle sprain Qualified Codes: S93.492A - Sprain of other ligament of left ankle, initial encounter Disposition: HOME, SELF-CARE Condition: Improved Departure-Patient Inst. Decision time for Depature: 13:10 Referrals: [facility] (PCP) Primary Care Physician ANNA CROWELL (Family) Primary Care Physician Patient Instructions: Ankle Sprain (DC), Contusion (DC) Add. Discharge Instructions: Ice to left ankle 20 minutes every 2 hours while awake. Alternate between Tylenol 650 mg and ibuprofen 600 mg every 4 hours. For pain not managed by Tylenol and ibuprofen take the tramadol 1 tablet every 8 hours. Elevate left ankle and gentle range of motion to toes and ankle. Keep your scheduled hip follow-up appointment for tomorrow. Ambulate with walker or crutches, weightbearing as tolerated on the left. Return to Emergency Dept for new, urgent health care problems. All discharge instructions reviewed with patient and/or family. Voiced understanding. Scripts Tramadol HCl (Tramadol HCl) 50 Mg Tablet 50 MG PO Q6H PRN for PAIN, #20 TAB 0 Refills Prov: COTY SANTORO 04/26/19 COTY SANTORO Apr 26, 2019 13:02
[2019-04-26] MEDS ORDERED: TRAM50TA2 PO (13:26)
[2019-04-26 13:30] VITALS: BP 121/76
== END 2019-04-26 13:30 | disposition home or self-care (01) ==
LOC: EDUNIT# 11:48 → ER 11:49
DX: S93.492A Sprain of other ligament of left ankle, initial encounter (principal); J44.9 Chronic obstructive pulmonary disease, unspecified; I10 Essential (primary) hypertension; Z80.0 Family history of malignant neoplasm of digestive organs; Z80.1 Family history of malignant neoplasm of trachea, bronchus and lung; Z91.14 Patient's other noncompliance with medication regimen; Z87.891 Personal history of nicotine dependence; Z88.5 Allergy status to narcotic agent; Z82.49 Family history of ischemic heart disease and other diseases of the circulatory system; W01.198A Fall on same level from slipping, tripping and stumbling with subsequent striking against other object, initial encounter
CPT/HCPCS: 73610

== ENCOUNTER → 2019-08-07 | Outpatient (CLI) | payer MEDICAID ==
[~2019-08-07] MED LIST changes: +CATHETER FLUSH 10 ML SYR IV PRN; +HOLD METFORMIN - RECEIVED CONTRAST 20 ML VIAL IV SCH; +IOHEXOL 350 MG/ML 100 ML (OMNIPAQUE 350) VIAL IV ONE; +NS 100 ML (IVPB) BAG IV ONE; +TRAM50TA2 PO
[2019-08-07 11:27] LABS: CREATININE SERUM 0.82 MG/DL (0.60-1.30)
--- NOTE | 2019-08-07 12:08 | Diagnostic Imaging Report ---
PROCEDURE: CT chest with contrast only. TECHNIQUE: Multiple contiguous axial images were obtained through the chest after administration of intravenous contrast. Auto Exposure Controls were utilized during the CT exam to meet ALARA standards for radiation dose reduction. INDICATION: Left lung nodule, follow-up. Patient also has sustained trauma to the right chest. COMPARISON: Correlation is made with prior CT from 12/27/2018. FINDINGS: No axillary, hilar or mediastinal lymphadenopathy is detected. No pericardial or pleural fluid is identified. Paraseptal and centrilobular emphysematous changes are again seen. There has been improved aeration to both lower lobes since prior CT. While there continues to be some mild linear densities in the right lower lobe, this is significantly improved and most consistent with some residual scarring or subsegmental atelectasis. Left lung is clear on today's study. No residual contusions or pneumothorax is seen. Old right-sided healed rib fractures and right clavicle fracture again noted. Upper abdomen is unremarkable. IMPRESSION: Overall improved aeration to both lungs when compared with prior CT from 12/27/2018. There is some residual subsegmental atelectasis or scarring in the right lower lobe. Dictated by: Dictated on workstation # [id number]
== END ==
LOC: RAD 10:43
PROVIDERS: ATTEND Nurse Practitioner Family
DX: S29.9XXA Unspecified injury of thorax, initial encounter (principal); J30.9 Allergic rhinitis, unspecified; J44.9 Chronic obstructive pulmonary disease, unspecified; F17.201 Nicotine dependence, unspecified, in remission; R91.8 Other nonspecific abnormal finding of lung field
CPT/HCPCS: 36415; 71260; 82565; 84520

== ENCOUNTER 2020-06-26 17:12 | Emergency (ER) | payer MEDICAID ==
[~2020-06-26] VITALS: Ht 187.9 cm; Wt 79.3 kg
[~2020-06-26 17:12] MED LIST changes: -CATHETER FLUSH 10 ML SYR IV PRN; -HOLD METFORMIN - RECEIVED CONTRAST 20 ML VIAL IV SCH; -IOHEXOL 350 MG/ML 100 ML (OMNIPAQUE 350) VIAL IV ONE; -NS 100 ML (IVPB) BAG IV ONE; -TAMS0.4C98 PO; +TMSL.4C PO; -TRAM50TA2 PO; +TRM50T PO
[2020-06-26 17:31] LABS: BASOPHILS % (AUTO) 1 % (0-10); EOSINOPHILS # (AUTO) 0.1 10^3/uL (0.0-0.3); EOSINOPHILS % (AUTO) 1 % (0-10); HEMATOCRIT 35 % (40-54); HEMOGLOBIN 11.8 G/DL (13.3-17.7); LYMPHOCYTES # (AUTO) 2.4 X 10^3 (1.0-4.0); LYMPHOCYTES % (AUTO) 38 % (12-44); MEAN CORPUSCULAR HEMOGLOBIN 30 PG (25-34); MEAN CORPUSCULAR HGB CONC 34 G/DL (32-36); MEAN CORPUSCULAR VOLUME 88 FL (80-99); MEAN PLATELET VOLUME 9.7 FL (7.4-10.4); MONOCYTES # (AUTO) 0.7 X 10^3 (0.0-1.0); MONOCYTES % (AUTO) 10 % (0-12); NEUTROPHILS # (AUTO) 3.2 X 10^3 (1.8-7.8); NEUTROPHILS % (AUTO) 50 % (42-75); PLATELET COUNT 219 10^3/uL (130-400); WHITE BLOOD COUNT 6.4 10^3/uL (4.3-11.0)
[2020-06-26 17:41] LABS: PROTHROMBIN TIME PATIENT 13.2 SEC (12.2-14.7)
[2020-06-26 17:51] LABS: ALANINE AMINOTRANSFERASE 26 U/L (0-55); ALKALINE PHOSPHATASE 69 U/L (40-136); AMYLASE 29 U/L (25-125); BILIRUBIN,TOTAL 0.5 MG/DL (0.1-1.0); BUN/CREATININE RATIO 18; CALCIUM 8.2 MG/DL (8.5-10.1); CARBON DIOXIDE 25 MMOL/L (21-32); CHLORIDE 104 MMOL/L (98-107); GFR ESTIMATED > 60; GLUCOSE 91 MG/DL (70-105); LIPASE 17 U/L (8-78); MAGNESIUM 1.9 MG/DL (1.6-2.4); POTASSIUM 3.7 MMOL/L (3.6-5.0); SODIUM 139 MMOL/L (135-145); TOTAL PROTEIN 6.3 GM/DL (6.4-8.2)
--- NOTE | 2020-06-26 18:03 | Diagnostic Imaging Report ---
EXAM: Chest 1 view, AP/PA only INDICATION: Chest pain. COMPARISON: CT chest with IV contrast 08/07/2019. FINDINGS: Hyperinflation. Normal heart size and central pulmonary vascularity. No focal pulmonary opacity, pleural effusion or pneumothorax is identified. The right costophrenic angle is not entirely included on the exam. Chronic right rib fractures and right clavicle fracture. IMPRESSION: 1. No acute cardiopulmonary finding. 2. COPD. Dictated by: Dictated on workstation # [id number]
--- NOTE | 2020-06-26 18:51 | NUR ---
Pt resting on cot, denies any CP, states he feels good.
--- NOTE | 2020-06-26 19:15 | NUR ---
Pt reports feeling better and that symptoms have resolved at this time.
--- NOTE | 2020-06-26 19:54 | ED Chest Pain ---
General Chief Complaint: Chest Pain Stated Complaint: CHEST PAIN Nursing Triage Note: Pt at clinic with and began having severe CP. 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 Nursing Sepsis Screen: No Definite Risk Source: patient Exam Limitations: no limitations History of Present Illness Date Seen by Provider: Jun 26, 2020 Time Seen by Provider: 17:23 Initial Comments 50-year-old male who was brought to the emergency room by [facility] for complaints of severe chest pain that started this afternoon while he was at a doctor's appointment with his . The patient reports that he did take his own nitroglycerin and he is pain-free on arrival to the emergency room. 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 He reports that his nitroglycerin was prescribed from a previous ER visit. He denied any nausea, shortness of breath, lightheadedness, dizziness. Timing/Duration: 1/2 hour Severity/Quality: sharp Location: substernal Radiation: no radiation ASA po PRINTER OPERATOR: Yes (324) NTG SL PRINTER OPERATOR: Yes (0.4) Associated Symptoms: denies symptoms Allergies and Home Medications Allergies Coded Allergies: acetaminophen (Verified Allergy, Severe, itching, 10/01/18) oxycodone (Verified Allergy, Severe, itching, 10/01/18) Home Medications Lisinopril 10 Mg Tablet, 10 MG PO DAILY, (Reported) Tamsulosin HCl 0.4 Mg Cap, 0.4 MG PO HS, (Reported) Tramadol HCl 50 Mg Tablet, 50 MG PO Q6H PRN for PAIN Prescribed by: COTY SANTORO on 04/26/19 1326 Patient Home Medication List Home Medication List Reviewed: Yes Review of Systems Review of Systems Constitutional: see HPI; No chills, No fever Cardiovascular: See HPI, Chest Pain All Other Systems Reviewed Negative Unless Noted: Yes Past Hpzumoi-Grwmfx-Gbhsvf Hx Past Med/Social Hx: Reviewed Nursing Past Med/Soc Hx Patient Social History Alcohol Use: Occasionally Uses Number of Drinks Today: 0 Alcohol Beverage of Choice: Beer Recreational Drug Use: No Smoking Status: Current Everyday Smoker Type Used: Cigarettes 2nd Hand Smoke Exposure: Yes Recent Foreign Travel: No Contact w/Someone Who Travel: No Recent Infectious Disease Expo: No Recent Hopitalizations: No Physical Abuse: No Sexual Abuse: No Mistreated: No Immunizations Up To Date Tetanus Booster (TDap): Less than 5yrs Date of Influenza Vaccine: Oct 02, 2014 Seasonal Allergies Seasonal Allergies: No Past Medical History Surgeries: Yes (RECTAL CYST, HEART CATH) Orthopedic Respiratory: Yes (possible COPD recently tested no results back) COPD Currently Using CPAP: No Currently Using BIPAP: No Cardiac: Yes ( HEART CATH ) Hypertension Neurological: Yes (BRAIN BLEED DUE TO FALL) Traumatic Brain Injury Reproductive Disorders: No Sexually Transmitted Disease: No HIV/AIDS: No Genitourinary: Yes Gastrointestinal: Yes (bowel incontinence) Musculoskeletal: Yes (BULGING DISK, narrowing of spine ) Chronic Back Pain Endocrine: No HEENT: No Hearing Impairment: Denies Cancer: No Psychosocial: No Integumentary: No Blood Disorders: No Adverse Reaction/Blood Tranf: No Family Medical History Reviewed Nursing Family Hx FHx: esophageal cancer FHx: lung cancer Heart Disease, Cancer Physical Exam Vital Signs Vital Signs - First Documented 06/26/20 06/26/20 17:13 17:17 Temp 36.1 Pulse 66 Resp 15 B/P (MAP) 114/81 (92) Pulse Ox 98 O2 Delivery Nasal Cannula O2 Flow Rate 2.0 Capillary Refill : Less Than 3 Seconds Height, Weight, BMI Height: 6'2.00" Weight: 202lbs. 0.0oz. 91.519005og; 22.00 BMI Method:Stated General Appearance: No Apparent Distress, WD/WN Respiratory: Chest Non Tender, Lungs Clear, Normal Breath Sounds, No Accessory Muscle Use, No Respiratory Distress Cardiovascular: Regular Rate, Rhythm, No Edema, No Gallop, No JVD, No Murmur, Normal Peripheral Pulses Gastrointestinal: Normal Bowel Sounds, No Organomegaly, No Pulsatile Mass, Non Tender Extremity: Normal Capillary Refill Neurologic/Psychiatric: Alert, Oriented x3, Normal Mood/Affect Skin: Normal Color, Warm/Dry Progress/Results/Core Measures Results/Orders Lab Results Laboratory Tests Test 06/26/20 17:15 06/26/20 18:50 Range/Units White Blood Count 6.4 4.3-11.0 10^3/uL Red Blood Count 3.95 L 4.35-5.85 10^6/uL Hemoglobin 11.8 L 13.3-17.7 G/DL Hematocrit 35 L 40-54 % Mean Corpuscular Volume 88 80-99 FL Mean Corpuscular Hemoglobin 30 25-34 PG Mean Corpuscular Hemoglobin Concent 34 32-36 G/DL Red Cell Distribution Width 13.5 10.0-14.5 % Platelet Count 219 130-400 10^3/uL Mean Platelet Volume 9.7 7.4-10.4 FL Neutrophils (%) (Auto) 50 42-75 % Lymphocytes (%) (Auto) 38 12-44 % Monocytes (%) (Auto) 10 0-12 % Eosinophils (%) (Auto) 1 0-10 % Basophils (%) (Auto) 1 0-10 % Neutrophils # (Auto) 3.2 1.8-7.8 X 10^3 Lymphocytes # (Auto) 2.4 1.0-4.0 X 10^3 Monocytes # (Auto) 0.7 0.0-1.0 X 10^3 Eosinophils # (Auto) 0.1 0.0-0.3 10^3/uL Basophils # (Auto) 0.0 0.0-0.1 10^3/uL Prothrombin Time 13.2 12.2-14.7 SEC INR Comment 1.0 0.8-1.4 Activated Partial Thromboplast Time 25 24-35 SEC Sodium Level 139 135-145 MMOL/L Potassium Level 3.7 3.6-5.0 MMOL/L Chloride Level 104 98-107 MMOL/L Carbon Dioxide Level 25 21-32 MMOL/L Anion Gap 10 5-14 MMOL/L Blood Urea Nitrogen 14 7-18 MG/DL Creatinine 0.80 0.60-1.30 MG/DL Estimat Glomerular Filtration Rate > 60 BUN/Creatinine Ratio 18 Glucose Level 91 70-105 MG/DL Calcium Level 8.2 L 8.5-10.1 MG/DL Corrected Calcium 8.2 L 8.5-10.1 MG/DL Magnesium Level 1.9 1.6-2.4 MG/DL Total Bilirubin 0.5 0.1-1.0 MG/DL Aspartate Amino Transf (AST/SGOT) 35 H 5-34 U/L Alanine Aminotransferase (ALT/SGPT) 26 0-55 U/L Alkaline Phosphatase 69 40-136 U/L Myoglobin 96.1 H 10.0-92.0 NG/ML Troponin I < 0.028 < 0.028 <0.028 NG/ML B-Type Natriuretic Peptide 23.2 <100.0 PG/ML Total Protein 6.3 L 6.4-8.2 GM/DL Albumin 4.0 3.2-4.5 GM/DL Amylase Level 29 25-125 U/L Lipase 17 8-78 U/L My Orders Orders - LEAH MOOER Cbc With Automated Diff (06/26/20 17:22) Magnesium (06/26/20 17:22) Chest 1 View, Ap/Pa Only (06/26/20:22) Ekg Tracing (06/26/20:22) Comprehensive Metabolic Panel (06/26/20:) Myoglobin Serum (06/26/20:) Protime With Inr (06/26/20:) Partial Thromboplastin Time (06/26/20:) O2 (06/26/20:) Monitor-Rhythm Ecg Trace Only (06/26/20:) Lipid Panel (06/27/20 06:00) Ed Iv/Invasive Line Start (06/26/20:) Lipase (06/26/20 17:22) Amylase (06/26/20 17:22) BNP (06/26/20:22) Troponin I (06/26/20:) Troponin I (06/26/20:20) Vital Signs/I&O 06/26/20 06/26/20 06/26/20 17:13 17:13 17:17 Temp 36.1 Pulse 66 Resp 15 B/P (MAP) 114/81 (92) Pulse Ox 98 99 O2 Delivery Nasal Cannula Nasal Cannula Nasal Cannula O2 Flow Rate 2.0 2.00 2.00 Blood Pressure Mean: 92 Progress Progress Note : Time: 20:00 Progress Note I have seen and evaluated the patient. I've informed him of his laboratory and imaging studies. He has remained pain-free his entire visit. The option to be admitted to the hospital for further evaluation was given and he declines. I did discuss the case with Dr. Millard and he agrees that the patient is okay to be followed an outpatient. The patient agrees with plan of care, plans for discharge, return precautions were given. Initial ECG Impression Date: Jun 26, 2020 Initial ECG Impression Time: 17:18 Initial ECG Rate: 65 Initial ECG Rhythm: Normal Sinus Initial ECG Intervals: Normal Initial ECG Impression: Normal Initial ECG Comparisson: Unchanged Departure Impression Primary Impression: Chest pain Disposition: 01 HOME, SELF-CARE Condition: Stable/Unchanged Departure-Patient Inst. Decision time for Depature: 19:53 Referrals: [facility] (PCP) Primary Care Physician ANNA CROWELL (Family) Primary Care Physician Patient Instructions: Chest Pain Add. Discharge Instructions: Call Dr. Millard's office first thing tomorrow morning to schedule follow-up appointment time. If you're chest pain returns any time throughout the night or any time return back to the emergency room immediately. Follow-up with your primary care provider within 1 week for recheck. Return back to the emergency room for worsening symptoms or concerns as needed. All discharge instructions reviewed with patient and/or family. Voiced understanding. LEAH MOORE Jun 26, 2020 19:54
[2020-06-26 20:02] VITALS: BP 116/81
== END 2020-06-26 20:02 | disposition home or self-care (01) ==
LOC: EDUNIT# 17:12 → ER 17:14
DX: R07.9 Chest pain, unspecified (principal); I10 Essential (primary) hypertension; F17.210 Nicotine dependence, cigarettes, uncomplicated; Z87.820 Personal history of traumatic brain injury; Z95.9 Presence of cardiac and vascular implant and graft, unspecified; Z82.49 Family history of ischemic heart disease and other diseases of the circulatory system; Z80.1 Family history of malignant neoplasm of trachea, bronchus and lung; Z80.0 Family history of malignant neoplasm of digestive organs; Z88.6 Allergy status to analgesic agent; Z88.5 Allergy status to narcotic agent
CPT/HCPCS: 36415; 71045; 80053; 82150; 83690; 83735; 83874; 83880; 84484; 85025; 85610; 85730; 93005; 93041

== ENCOUNTER → 2020-07-30 | Outpatient (CLI) | payer MEDICAID | LOC: CARD 09:00 | PROVIDERS: ATTEND Internal Medicine Cardiovascular Disease | DX: I11.9 Hypertensive heart disease without heart failure (principal); I65.23 Occlusion and stenosis of bilateral carotid arteries; F17.200 Nicotine dependence, unspecified, uncomplicated | CPT/HCPCS: 93306 ==

== ENCOUNTER → 2020-08-07 | Outpatient (CLI) | payer MEDICAID ==
[~2020-08-07] VITALS: Ht 188 cm; Wt 78.0 kg
[~2020-08-07] MED LIST changes: +CATHETER FLUSH 10 ML SYR IV PRN; +REGADENOSON 0.4 MG/5 ML SYR (LEXISCAN) IV ONE
[2020-08-07 13:40] VITALS: BP 115/68
--- NOTE | 2020-08-07 15:52 | Cardiology Stress Test Report ---
Stress Test Report Date of Procedure/Referring: Date of Procedure: Aug 07, 2020 PCP Evette Millard MD Admitting Physician Center/[facility] Indications: Dyspnea Baseline Heart Rate: 63 Baseline Blood Pressure: Blood Pressure Systolic: 115 Blood Pressure Diastolic: 68 Baseline Vitals Vital Signs Date Time Temp Pulse Resp B/P (MAP) Pulse Ox O2 Delivery O2 Flow Rate FiO2 08/07/20 13:40 64 115/68 (84) 98 Baseline EKG: Baseline EKG: normal sinus rhythm Summary After explaining the procedure to the patient, he signed a consent and then brought to the stress nuclear laboratory. Patient received 0.4 mg Lexiscan for stress test, ECG, heart rate and blood pressure were monitored continuously. Resting and stress dose of radio tracer were injected, imaging was acquired and reviewed in short axis, horizontal long axis and vertical long axis views. TID: 1.15 SSS: 0 SDS: 0 EF: 52 1. Patient tolerated Lexiscan well 2. Diaphragmatic attenuation with apical thinning, decreased uptake at the apex and inferoapical segment with subtle reversibility, no significant ischemia or infarction was noted 3. Normal left ventricular size, EF 52 percent. EVETTE MILLARD MD Aug 07, 2020 15:52
== END ==
LOC: CARD 08-05 07:45
PROVIDERS: ATTEND Internal Medicine Cardiovascular Disease
DX: I10 Essential (primary) hypertension (principal); I65.23 Occlusion and stenosis of bilateral carotid arteries; R06.00 Dyspnea, unspecified; F17.200 Nicotine dependence, unspecified, uncomplicated
CPT/HCPCS: 78452; 93017; A9502

== ENCOUNTER 2020-12-11 08:53 | Emergency (ER) | payer MEDICAID ==
[~2020-12-11] VITALS: Ht 187.9 cm; Wt 90.4 kg
[~2020-12-11 08:53] MED LIST changes: -CATHETER FLUSH 10 ML SYR IV PRN; +LISI10TA25 PO; -REGADENOSON 0.4 MG/5 ML SYR (LEXISCAN) IV ONE
--- NOTE | 2020-12-11 09:23 | ED Lower Extremity ---
General Chief Complaint: Lower Extremity Stated Complaint: R LEG CRAMPING Source: patient Exam Limitations: no limitations History of Present Illness Date Seen by Provider: Dec 11, 2020 Time Seen by Provider: 09:23 Initial Comments Patient is a 50-year-old male who presents to the emergency department today with a chief complaint of muscle spasms to his right lower extremity. Patient states that he woke up around 11:00 last night with significant pain from the inside of the right thigh to the knee and then when it was at its worst radiating down to the bottom of his foot. Patient states that he initially had pain in both thighs. But he states this morning it is primarily his right leg. He denies any numbness or weakness to the right leg just states that the muscles will "ball up" and he will have pain. Patient denies any recent trauma. He does have a history of having low magnesium and takes a magnesium supplement at home. He denies any recent illnesses. He denies any significant back pain or pain that radiates from his back. He denies any loss of bowel or bladder function. His gave him an naproxen last night and it helped with his pain. All other review of systems reviewed and negative except as stated. Onset: yesterday Severity: moderate Pain/Injury Location: right leg, right foot Method of Injury: unknown Modifying Factors: Improves With Pain Medication (naproxen) Allergies and Home Medications Allergies Coded Allergies: acetaminophen (Verified Allergy, Severe, itching, 10/01/18) oxycodone (Verified Allergy, Severe, itching, 10/01/18) Home Medications Lisinopril 10 Mg Tablet, 10 MG PO DAILY, (Reported) Tamsulosin HCl 0.4 Mg Cap, 0.4 MG PO HS, (Reported) Tramadol HCl 50 Mg Tablet, 50 MG PO Q6H PRN for PAIN Prescribed by: COTY SANTORO on 04/26/19 1326 Patient Home Medication List Home Medication List Reviewed: Yes Review of Systems Constitutional: see HPI EENTM: no symptoms reported Respiratory: no symptoms reported Cardiovascular: no symptoms reported Gastrointestinal: no symptoms reported Genitourinary: no symptoms reported Musculoskeletal: muscle pain, muscle cramps Skin: no symptoms reported All Other Systems Reviewed Negative Unless Noted: Yes Past Fejuvld-Tdiqwq-Qaxrqd Hx Patient Social History Alcohol Beverage of Choice: Beer Type Used: Cigarettes 2nd Hand Smoke Exposure: Yes Recent Hopitalizations: No Immunizations Up To Date Tetanus Booster (TDap): Less than 5yrs Date of Influenza Vaccine: Oct 02, 2014 Seasonal Allergies Seasonal Allergies: No Past Medical History Surgeries: Yes (RECTAL CYST, HEART CATH) Orthopedic Respiratory: Yes (possible COPD recently tested no results back) COPD Currently Using CPAP: No Currently Using BIPAP: No Cardiac: Yes ( HEART CATH ) Hypertension Neurological: Yes (BRAIN BLEED DUE TO FALL) Traumatic Brain Injury Reproductive Disorders: No Sexually Transmitted Disease: No HIV/AIDS: No Genitourinary: Yes Gastrointestinal: Yes (bowel incontinence) Musculoskeletal: Yes (BULGING DISK, narrowing of spine ) Chronic Back Pain Endocrine: No HEENT: No Hearing Impairment: Denies Cancer: No Psychosocial: No Integumentary: No Blood Disorders: No Adverse Reaction/Blood Tranf: No Family Medical History FHx: esophageal cancer FHx: lung cancer Heart Disease, Cancer Physical Exam Vital Signs Vital Signs - First Documented 12/11/20 09:01 Temp 35.9 Pulse 113 Resp 18 B/P (MAP) 108/90 (96) O2 Delivery Room Air Capillary Refill : Height, Weight, BMI Height: 6'2.00" Weight: 202lbs. 0.0oz. [id number]; 22.06 BMI Method:Stated General Appearance: WD/WN, no apparent distress Cardiovascular: regular rate, rhythm Respiratory: lungs clear, normal breath sounds, no respiratory distress, no accessory muscle use Gastrointestinal: non tender, soft Hips: right hip soft tissue tenderness (Tenderness to palpation medial right thigh) Knees: bilateral knee non-tender, bilateral knee normal inspection, bilateral knee normal range of motion, bilateral knee no evidence of injury Ankles: bilateral ankle non-tender, bilateral ankle normal inspection, bilateral ankle normal range of motion, bilateral ankle no evidence of injury Feet: bilateral foot non-tender, bilateral foot normal inspection, bilateral foot normal range of motion, bilateral foot no evidence of injury Neurologic/Tendon: normal sensation, normal motor functions Neurologic/Psychiatric: alert, normal mood/affect, oriented x 3 Skin: normal color, warm/dry Progress/Results/Core Measures Results/Orders Lab Results Laboratory Tests Test 12/11/20 10:03 Range/Units Sodium Level 137 135-145 MMOL/L Potassium Level 3.6 3.6-5.0 MMOL/L Chloride Level 104 98-107 MMOL/L Carbon Dioxide Level 24 21-32 MMOL/L Anion Gap 9 5-14 MMOL/L Blood Urea Nitrogen 19 H 7-18 MG/DL Creatinine 0.78 0.60-1.30 MG/DL Estimat Glomerular Filtration Rate > 60 BUN/Creatinine Ratio 24 Glucose Level 92 70-105 MG/DL Calcium Level 8.6 8.5-10.1 MG/DL Magnesium Level 1.9 1.6-2.4 MG/DL My Orders Orders - IVAN PENNY MD Basic Metabolic Panel (12/11/20 09:57) Magnesium (12/11/20 09:57) Orphenadrine Inj (Ed Only) (Norflex Inje (12/11/20 11:00) Vital Signs/I&O 12/11/20 09:01 Temp 35.9 Pulse 113 Resp 18 B/P (MAP) 108/90 (96) O2 Delivery Room Air Progress Progress Note : Time: 10:40 Progress Note Patient's chemistries are within normal limits, magnesium is within normal limit. Patient clinically has muscle spasm in the right thigh. No concentric swelling concerning for possible blood clot. No palpable cords. Intact neurovascular function to the distal lower extremity on the right. Vital signs are stable. I have no concern for acute arterial occlusion. No concern for cellulitis. Patient clinically looks well and states he feels better as long as the leg is still. He is treated in the emergency department with 60 mg of Norflex IM. We will send him home with a little muscle relaxer by mouth. He is comfortable with the plan of care. All questions are sought and answered. Patient stable for discharge. Departure Impression Primary Impression: Muscle spasm of right lower extremity Disposition: HOME, SELF-CARE Condition: Stable Departure-Patient Inst. Decision time for Depature: 11:09 Referrals: [facility] (PCP) Primary Care Physician ANNA CROWELL (Family) Primary Care Physician Patient Instructions: Muscle Spasms (DC) Add. Discharge Instructions: Drink plenty of fluids to stay well-hydrated. Take the muscle relaxer as needed every 8 hours for muscle spasm and discomfort. You can also take [id number] naproxen as directed. Always take this medication with food. Follow-up with your primary care physician. Return to the emergency room for any increased or worsening pain, numbness, tingling, weakness of your extremities or any other emergent concerning sympto ms. Scripts Cyclobenzaprine HCl (Cyclobenzaprine HCl) 10 Mg Tablet 10 MG PO Q8H, #10 TAB Prov: IVAN PENNY MD 12/11/20 IVAN PENNY MD Dec 11, 2020 09:23
[2020-12-11 10:24] LABS: CHLORIDE 104 MMOL/L (98-107); POTASSIUM 3.6 MMOL/L (3.6-5.0); SODIUM 137 MMOL/L (135-145)
[2020-12-11 10:25] LABS: CALCIUM 8.6 MG/DL (8.5-10.1)
[2020-12-11 10:26] LABS: GLUCOSE 92 MG/DL (70-105)
[2020-12-11 10:27] LABS: CARBON DIOXIDE 24 MMOL/L (21-32)
[2020-12-11 10:30] LABS: CREATININE SERUM 0.78 MG/DL (0.60-1.30); GFR ESTIMATED > 60
[2020-12-11 10:31] LABS: BUN/CREATININE RATIO 24
[2020-12-11 10:32] LABS: MAGNESIUM 1.9 MG/DL (1.6-2.4)
[2020-12-11] MEDS ORDERED: ORPHENADRINE 60 MG/2 ML (NORFLEX) AMP (ED ONLY) IM ONE (11:00)
[2020-12-11] MEDS ORDERED: CYCL10TA9 PO (11:11)
[2020-12-11 11:29] VITALS: BP 116/75
== END 2020-12-11 11:26 | disposition home or self-care (01) ==
LOC: EDUNIT# 08:53 → ER 08:55
DX: M62.838 Other muscle spasm (principal); I10 Essential (primary) hypertension; Z88.5 Allergy status to narcotic agent; Z87.820 Personal history of traumatic brain injury; Z95.9 Presence of cardiac and vascular implant and graft, unspecified; Z77.22 Contact with and (suspected) exposure to environmental tobacco smoke (acute) (chronic); Z80.1 Family history of malignant neoplasm of trachea, bronchus and lung; Z80.0 Family history of malignant neoplasm of digestive organs; Z82.49 Family history of ischemic heart disease and other diseases of the circulatory system
CPT/HCPCS: 36415; 80048; 83735

== ENCOUNTER 2020-12-13 12:55 | Emergency (ER) | payer MEDICAID ==
[~2020-12-13] VITALS: Ht 187.9 cm; Wt 90.4 kg
[~2020-12-13 12:55] MED LIST changes: +CYCL10TA9 PO
[2020-12-13 13:35] VITALS: BP 130/88
--- NOTE | 2020-12-13 14:32 | ED Lower Extremity ---
General Chief Complaint: Lower Extremity Stated Complaint: R LEG CRAMPING Nursing Triage Note: PT AMB TO [facility] WITH COMPLAINT OF RIGHT THIGH PAIN AND CRAMPING. WAS SEEN TWO DAYS AGO IN ER FOR SYMPTOMS AND WENT TO [facility] TODAY AND HAD ULTRASOUND. WAS SENT TO ER FOR FURTHER EVALUATION. Nursing Sepsis Screen: No Definite Risk Source: patient Exam Limitations: no limitations History of Present Illness Date Seen by Provider: Dec 13, 2020 Time Seen by Provider: 13:40 Initial Comments 50-year-old male who presents to the emergency room with complaints of right thigh pain and cramping. He was evaluated 2 days prior in this emergency room for similar symptoms. He had an outpatient ultrasound today and he is unsure of his results. He was sent to the emergency room for further evaluation from [facility]. He reports that 1 day after his visit in the emergency room he developed a large bruise that extends from his upper right thigh to his right knee. He denies known injury. He reports history of cardiovascular disease and alcoholism. Pain/Injury Location: right thigh Method of Injury: unknown Allergies and Home Medications Allergies Coded Allergies: acetaminophen (Verified Allergy, Severe, itching, 10/01/18) oxycodone (Verified Allergy, Severe, itching, 10/01/18) Home Medications Cyclobenzaprine HCl 10 Mg Tablet, 10 MG PO Q8H Prescribed by: IVAN PENNY on 12/11/20 1111 Lisinopril 10 Mg Tablet, 10 MG PO DAILY, (Reported) Tamsulosin HCl 0.4 Mg Cap, 0.4 MG PO HS, (Reported) Tramadol HCl 50 Mg Tablet, 50 MG PO Q6H PRN for PAIN Prescribed by: COTY SANTORO on 04/26/19 1326 Patient Home Medication List Home Medication List Reviewed: Yes Review of Systems Constitutional: see HPI; No chills, No fever Musculoskeletal: see HPI, muscle stiffness, muscle cramps, other (Right upper thigh) All Other Systems Reviewed Negative Unless Noted: Yes Past Squynlu-Wkqgwi-Hsgkvn Hx Past Med/Social Hx: Reviewed Nursing Past Med/Soc Hx Patient Social History Alcohol Use: Occasionally Uses Number of Drinks Today: AA Alcohol Beverage of Choice: Beer Smoking Status: Current Everyday Smoker Type Used: Cigarettes 2nd Hand Smoke Exposure: Yes Recent Infectious Disease Expo: No Recent Hopitalizations: No Immunizations Up To Date Tetanus Booster (TDap): Less than 5yrs Date of Influenza Vaccine: Oct 02, 2014 Seasonal Allergies Seasonal Allergies: No Past Medical History Surgeries: Yes (RECTAL CYST, HEART CATH) Orthopedic Respiratory: Yes (possible COPD recently tested no results back) COPD Currently Using CPAP: No Currently Using BIPAP: No Cardiac: Yes ( HEART CATH ) Hypertension Neurological: Yes (BRAIN BLEED DUE TO FALL) Traumatic Brain Injury Reproductive Disorders: No Sexually Transmitted Disease: No HIV/AIDS: No Genitourinary: Yes Gastrointestinal: Yes (bowel incontinence) Musculoskeletal: Yes (BULGING DISK, narrowing of spine ) Chronic Back Pain Endocrine: No HEENT: No Hearing Impairment: Denies Cancer: No Psychosocial: No Integumentary: No Blood Disorders: No Adverse Reaction/Blood Tranf: No Family Medical History Reviewed Nursing Family Hx FHx: esophageal cancer FHx: lung cancer Heart Disease, Cancer Physical Exam Vital Signs Vital Signs - First Documented 12/13/20 13:35 Temp 36.4 Pulse 94 Resp 20 B/P (MAP) 130/88 (102) Pulse Ox 99 O2 Delivery Room Air Capillary Refill : Less Than 3 Seconds Height, Weight, BMI Height: 6'2.00" Weight: 202lbs. 0.0oz. [id number]; 25.00 BMI Method:Stated General Appearance: WD/WN, no apparent distress Cardiovascular: normal peripheral pulses, regular rate, rhythm, no edema, no gallop, no JVD, no murmur Respiratory: chest non-tender, lungs clear, normal breath sounds, no respiratory distress, no accessory muscle use Gastrointestinal: normal bowel sounds, non tender, soft, no organomegaly, no pulsatile mass Legs: right leg ecchymosis (Fading ecchymosis to the right upper thigh that extends to the right knee.), right leg soft tissue tenderness Neurologic/Psychiatric: alert, normal mood/affect, oriented x 3 Skin: normal color, warm/dry Progress/Results/Core Measures Results/Orders Lab Results Laboratory Tests Test 12/13/20 15:20 Range/Units White Blood Count 6.6 4.3-11.0 10^3/uL Red Blood Count 3.81 L 4.30-5.52 10^6/uL Hemoglobin 11.3 L 13.3-17.7 g/dL Hematocrit 34 L 40-54 % Mean Corpuscular Volume 88 80-99 fL Mean Corpuscular Hemoglobin 30 25-34 pg Mean Corpuscular Hemoglobin Concent 34 32-36 g/dL Red Cell Distribution Width 13.2 10.0-14.5 % Platelet Count 198 130-400 10^3/uL Mean Platelet Volume 10.4 9.0-12.2 fL Immature Granulocyte % (Auto) 0 % Neutrophils (%) (Auto) 62 42-75 % Lymphocytes (%) (Auto) 27 12-44 % Monocytes (%) (Auto) 9 0-12 % Eosinophils (%) (Auto) 1 0-10 % Basophils (%) (Auto) 1 0-10 % Neutrophils # (Auto) 4.1 1.8-7.8 10^3/uL Lymphocytes # (Auto) 1.8 1.0-4.0 10^3/uL Monocytes # (Auto) 0.6 0.0-1.0 10^3/uL Eosinophils # (Auto) 0.1 0.0-0.3 10^3/uL Basophils # (Auto) 0.1 0.0-0.1 10^3/uL Immature Granulocyte # (Auto) 0.0 0.0-0.1 10^3/uL Prothrombin Time 12.4 12.2-14.7 SEC INR Comment 0.9 0.8-1.4 Activated Partial Thromboplast Time 26 24-35 SEC Sodium Level 139 135-145 MMOL/L Potassium Level 3.5 L 3.6-5.0 MMOL/L Chloride Level 105 98-107 MMOL/L Carbon Dioxide Level 27 21-32 MMOL/L Anion Gap 7 5-14 MMOL/L Blood Urea Nitrogen 10 7-18 MG/DL Creatinine 0.69 0.60-1.30 MG/DL Estimat Glomerular Filtration Rate > 60 BUN/Creatinine Ratio 14 Glucose Level 86 70-105 MG/DL Calcium Level 8.7 8.5-10.1 MG/DL Corrected Calcium 8.5 8.5-10.1 MG/DL Total Bilirubin 0.6 0.1-1.0 MG/DL Aspartate Amino Transf (AST/SGOT) 39 H 5-34 U/L Alanine Aminotransferase (ALT/SGPT) 32 0-55 U/L Alkaline Phosphatase 84 40-136 U/L Total Protein 6.9 6.4-8.2 GM/DL Albumin 4.2 3.2-4.5 GM/DL My Orders Orders - BERNOT,LEAH Right Low Ext [id number] (12/13/20 13:45) Us Venous Lower Ext Rt (12/13/20 13:45) Cbc With Automated Diff (12/13/20 13:48) Comprehensive Metabolic Panel (12/13/20 13:48) Protime With Inr (12/13/20 13:48) Partial Thromboplastin Time (12/13/20 13:48) Vital Signs/I&O 12/13/20 13:35 Temp 36.4 Pulse 94 Resp 20 B/P (MAP) 130/88 (102) Pulse Ox 99 O2 Delivery Room Air Blood Pressure Mean: 102 Departure Impression Primary Impression: Thigh hematoma Disposition: HOME, SELF-CARE Condition: Stable/Unchanged Departure-Patient Inst. Decision time for Depature: 16:17 Referrals: [facility] (PCP) Primary Care Physician ANNA CROWELL (Family) Primary Care Physician Patient Instructions: Contusion (DC) Add. Discharge Instructions: Drink plenty of fluids to stay hydrated. You may use Tylenol and ibuprofen as needed for pain relief. You may alternate ice and heat to the sore areas. Fo llow-up with your primary care provider within 1 week for recheck. All discharge instructions reviewed with patient and/or family. Voiced understanding. LEAH MOORE Dec 13, 2020 14:32
--- NOTE | 2020-12-13 15:31 | Diagnostic Imaging Report ---
PROCEDURE: US right lower extremity venous. TECHNIQUE: Multiple real-time grayscale images were obtained over the right lower extremity in various projections. Additional spectral analysis and color Doppler duplex images were also obtained. INDICATION: Right-sided thigh pain and bruising. FINDINGS: There is no evidence of right lower extremity DVT. Right lower extremity deep venous system shows normal compressibility with normal response to augmentation and Valsalva. No fluid collection or mass is seen. IMPRESSION: No evidence of right lower extremity DVT. Dictated by: Dictated on workstation # [id number]
--- NOTE | 2020-12-13 15:32 | Diagnostic Imaging Report ---
INDICATION: Thigh pain and bruising on the right. Grayscale, color-flow and duplex Doppler evaluation of the right lower extremity arterial system was performed. There are triphasic waveforms throughout the right lower extremity arterial system. Velocity throughout the right lower extremities is unremarkable. There does appear to be a complex fluid collection in the medial right thigh measuring 12.0 x 1.8 x 4.0 cm. This is most consistent with a hematoma. No internal vascularity is seen. IMPRESSION: 1. No evidence of arterial stenosis or occlusion. 2. Complex fluid collection medial right thigh suggestive of hematoma. Dictated by: Dictated on workstation # [id number]
[2020-12-13 15:41] LABS: ALBUMIN 4.2 GM/DL (3.2-4.5); CHLORIDE 105 MMOL/L (98-107); POTASSIUM 3.5 MMOL/L (3.6-5.0); SODIUM 139 MMOL/L (135-145)
[2020-12-13 15:42] LABS: CALCIUM 8.7 MG/DL (8.5-10.1)
[2020-12-13 15:43] LABS: GLUCOSE 86 MG/DL (70-105); TOTAL PROTEIN 6.9 GM/DL (6.4-8.2)
[2020-12-13 15:44] LABS: CARBON DIOXIDE 27 MMOL/L (21-32)
[2020-12-13 15:45] LABS: BILIRUBIN,TOTAL 0.6 MG/DL (0.1-1.0)
[2020-12-13 15:47] LABS: ALKALINE PHOSPHATASE 84 U/L (40-136); BASOPHILS # (AUTO) 0.1 10^3/uL (0.0-0.1); BASOPHILS % (AUTO) 1 % (0-10); CREATININE SERUM 0.69 MG/DL (0.60-1.30); EOSINOPHILS # (AUTO) 0.1 10^3/uL (0.0-0.3); EOSINOPHILS % (AUTO) 1 % (0-10); GFR ESTIMATED > 60; HEMATOCRIT 34 % (40-54); HEMOGLOBIN 11.3 g/dL (13.3-17.7); LYMPHOCYTES # (AUTO) 1.8 10^3/uL (1.0-4.0); LYMPHOCYTES % (AUTO) 27 % (12-44); MEAN CORPUSCULAR HEMOGLOBIN 30 pg (25-34); MEAN CORPUSCULAR HGB CONC 34 g/dL (32-36); MEAN CORPUSCULAR VOLUME 88 fL (80-99); MEAN PLATELET VOLUME 10.4 fL (9.0-12.2); MONOCYTES # (AUTO) 0.6 10^3/uL (0.0-1.0); MONOCYTES % (AUTO) 9 % (0-12); NEUTROPHILS # (AUTO) 4.1 10^3/uL (1.8-7.8); NEUTROPHILS % (AUTO) 62 % (42-75); PLATELET COUNT 198 10^3/uL (130-400); WHITE BLOOD COUNT 6.6 10^3/uL (4.3-11.0)
[2020-12-13 15:48] LABS: BUN/CREATININE RATIO 14
[2020-12-13 15:50] LABS: ALANINE AMINOTRANSFERASE 32 U/L (0-55)
[2020-12-13 16:07] LABS: INR 0.9 (0.8-1.4); PROTHROMBIN TIME PATIENT 12.4 SEC (12.2-14.7)
== END 2020-12-13 16:46 | disposition home or self-care (01) ==
LOC: EDUNIT# 12:55 → ER 12:56
DX: S70.11XA Contusion of right thigh, initial encounter (principal); I10 Essential (primary) hypertension; F17.210 Nicotine dependence, cigarettes, uncomplicated; Z88.5 Allergy status to narcotic agent; Z87.820 Personal history of traumatic brain injury; Z95.9 Presence of cardiac and vascular implant and graft, unspecified; Z80.0 Family history of malignant neoplasm of digestive organs; Z80.1 Family history of malignant neoplasm of trachea, bronchus and lung; Z82.49 Family history of ischemic heart disease and other diseases of the circulatory system; X58.XXXA Exposure to other specified factors, initial encounter
CPT/HCPCS: 36415; 80053; 85025; 85610; 85730; 93926

== ENCOUNTER → 2020-12-17 | Outpatient (CLI) | payer MEDICAID ==
[~2020-12-17] MED LIST changes: +CATHETER FLUSH 10 ML SYR IV PRN; +HOLD METFORMIN - RECEIVED CONTRAST 20 ML VIAL IV SCH; +IOHEXOL 350 MG/ML 150 ML (OMNIPAQUE 350) VIAL IV ONE; +NS 100 ML (IVPB) BAG IV ONE
[2020-12-17 13:13] LABS: ALANINE AMINOTRANSFERASE 29 U/L (0-55); ALBUMIN 4.3 GM/DL (3.2-4.5); ALKALINE PHOSPHATASE 96 U/L (40-136); BILIRUBIN,TOTAL 0.5 MG/DL (0.1-1.0); BUN/CREATININE RATIO 18; CALCIUM 8.9 MG/DL (8.5-10.1); CARBON DIOXIDE 26 MMOL/L (21-32); CHLORIDE 105 MMOL/L (98-107); CREATININE SERUM 0.82 MG/DL (0.60-1.30); GFR ESTIMATED > 60; GLUCOSE 100 MG/DL (70-105); POTASSIUM 3.8 MMOL/L (3.6-5.0); SODIUM 139 MMOL/L (135-145); TOTAL PROTEIN 6.8 GM/DL (6.4-8.2)
--- NOTE | 2020-12-17 14:50 | Diagnostic Imaging Report ---
CT ANGIO EXT LOWER RIGHT W TECHNIQUE: CT imaging of the bilateral lower extremities was performed with IV contrast. 3D MIP reformats are created. Automatic exposure controls were utilized to keep dose as low as reasonably achievable. INDICATION: Swelling and bruising in the medial aspect of the right thigh. COMPARISON: None available. FINDINGS: Right lower extremity: The common femoral artery is widely patent. The profunda femoris branches are normal. Superficial femoral artery is widely patent without stenosis. Popliteal artery is normal. There is a conventional three-vessel runoff to the level of the ankle. The sartorius muscle is asymmetrically enlarged compared to the contralateral side and has some scattered ill-defined areas of increased attenuation, favoring intramuscular hematoma within the proximal one-third of the thigh. The vastus intermedius also has some low-attenuation within it which may represent some edema. No contrast extravasation that would indicate active hemorrhage. Left lower extremity: Common femoral artery is normal. Profunda femoris and superficial femoral arteries are normal. Popliteal artery is widely patent. Conventional three-vessel runoff to the level of the ankle. No soft tissue mass is appreciated. Pelvis: Distal aorta is normal in caliber with moderate atherosclerotic plaquing. The bilateral common and external iliac arteries are widely patent. Internal iliac arteries are also patent centrally. No free pelvic fluid. No pelvic or inguinal lymphadenopathy. Prior gamma nail fixation of the proximal left femur. IMPRESSION: 1. The right sartorius muscle is asymmetrically enlarged with mixed areas of increased and decreased attenuation that favor an intramuscular hematoma. Follow-up with physical examination is recommended and if this does not resolve in approximately six weeks, then a follow-up MRI of the right thigh without and with IV contrast utilizing the tumor protocol is recommended. Please note that imaging before six weeks' time may require additional repeat imaging as the hematoma needs to have time to improve to evaluate for underlying enhancement. 2. No arterial stenosis or active extravasation. Dictated by: Dictated on workstation # [id number]
== END ==
LOC: RAD 12:27
PROVIDERS: ATTEND Nurse Practitioner Family
DX: M79.89 Other specified soft tissue disorders (principal); T14.8XXA Other injury of unspecified body region, initial encounter; M62.89 Other specified disorders of muscle
CPT/HCPCS: 36415; 73706; 80053

== ENCOUNTER 2021-07-21 22:41 | Emergency (ER) | payer MEDICAID ==
[~2021-07-21] VITALS: Ht 187 cm; Wt 90.4 kg
[~2021-07-21 22:41] MED LIST changes: -CATHETER FLUSH 10 ML SYR IV PRN; -HOLD METFORMIN - RECEIVED CONTRAST 20 ML VIAL IV SCH; -IOHEXOL 350 MG/ML 150 ML (OMNIPAQUE 350) VIAL IV ONE; -NS 100 ML (IVPB) BAG IV ONE
[2021-07-22] MEDS ORDERED: LACTATED RINGERS 1,000 ML IV ONE (01:00)
[2021-07-22 01:24] LABS: BASOPHILS % (AUTO) 0 % (0-10); EOSINOPHILS % (AUTO) 0 % (0-10); HEMATOCRIT 38 % (40-54); HEMOGLOBIN 13.1 g/dL (13.3-17.7); LYMPHOCYTES # (AUTO) 0.9 10^3/uL (1.0-4.0); LYMPHOCYTES % (AUTO) 9 % (12-44); MEAN CORPUSCULAR HEMOGLOBIN 30 pg (25-34); MEAN CORPUSCULAR HGB CONC 34 g/dL (32-36); MEAN CORPUSCULAR VOLUME 88 fL (80-99); MEAN PLATELET VOLUME 10.1 fL (9.0-12.2); MONOCYTES # (AUTO) 0.4 10^3/uL (0.0-1.0); MONOCYTES % (AUTO) 4 % (0-12); NEUTROPHILS # (AUTO) 8.2 10^3/uL (1.8-7.8); NEUTROPHILS % (AUTO) 86 % (42-75); PLATELET COUNT 172 10^3/uL (130-400); WHITE BLOOD COUNT 9.5 10^3/uL (4.3-11.0)
[2021-07-22 01:25] LABS: BILIRUBIN,URINE NEGATIVE (NEGATIVE); CLARITY,URINE CLEAR; COLOR,URINE YELLOW; GLUCOSE, URINE (UA) NEGATIVE (NEGATIVE); KETONES,URINE NEGATIVE (NEGATIVE); LEUKOCYTE ESTERASE ,URINE NEGATIVE (NEGATIVE); NITRITE,URINE NEGATIVE (NEGATIVE); PROTEIN,URINE NEGATIVE (NEGATIVE)
--- NOTE | 2021-07-22 01:25 | ED Cough/URI ---
General Chief Complaint: Cough/Cold/Flu Symptoms Stated Complaint: FEVER 104 - COUGH- BODY ACHES Nursing Triage Note: PT PRESENTS TO THE ED C/O MALAISE AND JOINT PAIN WITH INTERMITTENT COUGH SINCE 0600 THIS AM. PT STATES HE HAS HAD FEVER AND CHILLS, LAST DOSE OF OTC COLD AND FLU MEDS 2200 FOR A TEMPORAL TEMP OF 104. PT STATES HE HAS A TRAUMATIC PNEUMOTHORAX HX AND HAS BEEN EXPERIENCING WORSENING PAIN AT THE SCAR SITE, WELL SOB. PT STATES HE IS NOT SOB NOW IN THE ED. Source: patient History of Present Illness Date Seen by Provider: Jul 21, 2021 Time Seen by Provider: 23:39 Initial Comments PT ARRIVES VIA POV FROM HOME STATES HE STARTED FEELING BAD THIS MORNING C/O NON PRODUCTIVE COUGH C/O INTERMITTENT SHORTNESS OF BREATH C/O FEVER UP TO 104 TONIGHT--TOOK OVER THE COUNTER COUGH AND COLD MEDICATION AROUND 2200 TONIGHT C/O BODY ACHES C/O NAUSEA, NO VOMITING, NO DIARRHEA, NO ABDOMINAL PAIN C/O DECREASED APPETITE C/O MALAISE/FATIGUE C/O MILD SORE THROAT C/O NASAL CONGESTION, BUT NO SINUS PAIN NO LOSS OF TASTE OR SMELL HAD SOME RIB/CHEST WALL PAIN EARLIER WITH COUGHING, BUT NOT NOW. NO KNOWN SICK CONTACTS PT HAS HAD BOTH PFIZER VACCINES--RECEIVED THE SECOND ONE LESS THAN 2 WEEKS AGO PT SMOKES 2-3 PPD PT HAS HISTORY OF IV METH USE, THC USE, RX PILLS/ABUSE--CLAIMS NO RECENT USE HAS HISTORY OF ALCOHOL ABUSE--CLAIMS NO RECENT USE PT STATES HE HAS COPD AND HAS BEEN PRESCRIBED INHALERS, BUT DOES NOT USE THEM, AND HAS NOT USED THEM TONIGHT PCP: [facility] [place] Allergies and Home Medications Allergies Coded Allergies: acetaminophen (Verified Allergy, Severe, itching, 10/01/18) oxycodone (Verified Allergy, Severe, itching, 10/01/18) Patient Home Medication List Cyclobenzaprine HCl (Cyclobenzaprine HCl) 10 Mg Tablet, 10 MG PO Q8H Prescribed by: IVAN PENNY on 12/11/20 1111 Lisinopril (Lisinopril) 10 Mg Tablet, 10 MG PO DAILY, (Reported) Entered as Reported by: BRIDGET HADLEY on 08/18/17 1528 Tamsulosin HCl (Flomax) 0.4 Mg Cap, 0.4 MG PO HS, (Reported) Entered as Reported by: BRIDGET HADLEY on 08/18/17 1528 Tramadol HCl (Tramadol HCl) 50 Mg Tablet, 50 MG PO Q6H PRN for PAIN Prescribed by: COTY SANTORO on 04/26/19 1326 Review of Systems Review of Systems Constitutional: see HPI, fever, malaise, weakness EENTM: nose congestion, throat pain Respiratory: see HPI, cough, short of breath Cardiovascular: see HPI, chest pain Gastrointestinal: see HPI; No abdominal pain, No diarrhea; nausea; No vomiting Genitourinary: no symptoms reported Musculoskeletal: see HPI, other (BODY ACHES) Skin: no symptoms reported Psychiatric/Neurological: No Symptoms Reported; Denies Headache Hematologic/Lymphatic: No Symptoms Reported Immunological/Allergic: no symptoms reported Past Cnztqeb-Wueglw-Ycsohp Hx Patient Social History Tobacco Use?: Yes Tobacco type used: Cigarettes Smoking Status: Current Everyday Smoker Substance use?: Yes Alcohol Use?: Yes Immunizations Up To Date Tetanus Booster (TDap): Less than 5yrs Influenza Vaccine Up-to-Date: No; Not Current Seasonal Allergies Seasonal Allergies: No Past Medical History Surgery/Hospitalization HX: -FALL FROM A LADDER 2018 WITH MULTIPLE INJURIES Surgeries: Yes (RECTAL CYST, HEART CATH) Orthopedic Respiratory: Yes (possible COPD recently tested no results back) COPD Currently Using CPAP: No Currently Using BIPAP: No Cardiac: Yes ( HEART CATH ) Hypertension Neurological: Yes (BRAIN BLEED DUE TO FALL) Traumatic Brain Injury Reproductive Disorders: No Sexually Transmitted Disease: No HIV/AIDS: No Genitourinary: Yes Gastrointestinal: Yes (bowel incontinence) Musculoskeletal: Yes (BULGING DISK, narrowing of spine ) Chronic Back Pain Endocrine: No HEENT: No Hearing Impairment: Denies Cancer: No Psychosocial: No Integumentary: No Blood Disorders: No Adverse Reaction/Blood Tranf: No Family Medical History FHx: esophageal cancer FHx: lung cancer Heart Disease, Cancer SOCIAL HISTORY: -ETOH--REGULAR/HEAVY USE/ABUSE-CLAIMS ONLY "OCCASIONALLY" DRINKS NOW, PER PT 07/21/21 -DRUGS--HX OF IV METH USE AND "OTHER" DRUGS USED IV, THC USE, RX PILLS ABUSE--DENIES ANY RECENT USE, PER PT 07/21/21 -SMOKES 2-3 PPD Physical Exam Vital Signs - First Documented 07/21/21 23:36 Temp 37.2 Pulse 98 Resp 20 B/P (MAP) 123/81 (95) Pulse Ox 96 O2 Delivery Room Air Capillary Refill : Less Than 3 Seconds Height: 6'2.00" Weight: 202lbs. 0.0oz. 91.517553ju; 25.00 BMI Method:Stated General Appearance: WD/WN, no apparent distress, other (DOES NOT APPEAR TO BE IN ANY DISCOMFORT OR DISTRESS. NO COUGH OR DYSPNEA NOTED) HEENT: PERRL/EOMI, TMs normal, pharynx normal; No pharyngeal erythema; other (EDENTULOUS; MILD NASAL CONGESTION) Neck: normal inspection Respiratory: normal breath sounds, no respiratory distress, no accessory muscle use Cardiovascular: regular rate, rhythm Gastrointestinal: normal bowel sounds, non tender, soft Extremities: normal inspection, no pedal edema, normal capillary refill Neurologic/Psychiatric: belting inspector II-XII nml as tested, no motor/sensory deficits, alert, normal mood/affect, oriented x 3 Skin: normal color, warm/dry, tattoos/piercings (TATTOOS) Focused Exam Sepsis Stage: Sepsis Possible Source: Pulmonary Lactate Level 07/22/21 01:08: Lactic Acid Level 0.70 Time of Focused Exam: 02:30 Respiratory: Normal Breath Sounds, No Accessory Muscle Use, No Respiratory Distress Cardiovascular: Regular Rate, Rhythm, Normal Peripheral Pulses Capillary Refill: Less Than 3 Seconds Skin: normal color, warm/dry Lactic Acid Level Laboratory Tests Test 07/22/21 01:08 Lactic Acid Level 0.70 MMOL/L (0.50-2.00) Within 3hrs of presentation: Admin fluids, Admin ABX, Blood cultures prior to ABX's, Focus exam, Lactate level Progress/Results/Core Measures Suspected Sepsis SIRS Temperature: Pulse: 98 Respiratory Rate: 20 Laboratory Tests 07/22/21 01:08: White Blood Count 9.5 Blood Pressure 123 /81 Mean: 95 07/22/21 01:08: Lactic Acid Level 0.70 Laboratory Tests 07/22/21 01:08: Creatinine 0.84, INR Comment 0.9, Platelet Count 172, Total Bilirubin 0.6 Results/Orders Lab Results Laboratory Tests Test 07/21/21 23:46 07/22/21 00:56 07/22/21 01:08 Range/Units Influenza Type A (RT-PCR) Not Detected Not Detecte Influenza Type B (RT-PCR) Not Detected Not Detecte SARS-CoV-2 RNA (RT-PCR) Not Detected Not Detected Not Detecte White Blood Count 9.5 4.3-11.0 10^3/uL Red Blood Count 4.35 4.30-5.52 10^6/uL Hemoglobin 13.1 L 13.3-17.7 g/dL Hematocrit 38 L 40-54 % Mean Corpuscular Volume 88 80-99 fL Mean Corpuscular Hemoglobin 30 25-34 pg Mean Corpuscular Hemoglobin Concent 34 32-36 g/dL Red Cell Distribution Width 13.3 10.0-14.5 % Platelet Count 172 130-400 10^3/uL Mean Platelet Volume 10.1 9.0-12.2 fL Immature Granulocyte % (Auto) 0 % Neutrophils (%) (Auto) 86 H 42-75 % Lymphocytes (%) (Auto) 9 L 12-44 % Monocytes (%) (Auto) 4 0-12 % Eosinophils (%) (Auto) 0 0-10 % Basophils (%) (Auto) 0 0-10 % Neutrophils # (Auto) 8.2 H 1.8-7.8 10^3/uL Lymphocytes # (Auto) 0.9 L 1.0-4.0 10^3/uL Monocytes # (Auto) 0.4 0.0-1.0 10^3/uL Eosinophils # (Auto) 0.0 0.0-0.3 10^3/uL Basophils # (Auto) 0.0 0.0-0.1 10^3/uL Immature Granulocyte # (Auto) 0.0 0.0-0.1 10^3/uL Erythrocyte Sedimentation Rate 9 0-30 MM/HR Prothrombin Time 12.8 12.2-14.7 SEC INR Comment 0.9 0.8-1.4 Activated Partial Thromboplast Time 28 24-35 SEC D-Dimer 1.10 H 0.00-0.49 UG/ML Urine Color YELLOW Urine Clarity CLEAR Urine pH 7.0 5-9 Urine Specific Randolph 1.010 L 1.016-1.022 Urine Protein NEGATIVE NEGATIVE Urine Glucose (UA) NEGATIVE NEGATIVE Urine Ketones NEGATIVE NEGATIVE Urine Nitrite NEGATIVE NEGATIVE Urine Bilirubin NEGATIVE NEGATIVE Urine Urobilinogen 0.2 < = 1.0 MG/DL Urine Leukocyte Esterase NEGATIVE NEGATIVE Urine RBC (Auto) NEGATIVE NEGATIVE Urine RBC NONE /HPF Urine WBC NONE /HPF Urine Squamous Epithelial Cells 2-5 /HPF Urine Crystals NONE /LPF Urine Bacteria NEGATIVE /HPF Urine Casts NONE /LPF Urine Mucus NEGATIVE /LPF Urine Culture Indicated NO Sodium Level 137 135-145 MMOL/L Potassium Level 3.6 3.6-5.0 MMOL/L Chloride Level 100 98-107 MMOL/L Carbon Dioxide Level 25 21-32 MMOL/L Anion Gap 12 5-14 MMOL/L Blood Urea Nitrogen 12 7-18 MG/DL Creatinine 0.84 0.60-1.30 MG/DL Estimat Glomerular Filtration Rate 96 BUN/Creatinine Ratio 14 Glucose Level 106 H 70-105 MG/DL Lactic Acid Level 0.70 0.50-2.00 MMOL/L Calcium Level 9.5 8.5-10.1 MG/DL Corrected Calcium 9.3 8.5-10.1 MG/DL Magnesium Level 2.0 1.6-2.4 MG/DL Total Bilirubin 0.6 0.1-1.0 MG/DL Aspartate Amino Transf (AST/SGOT) 31 5-34 U/L Alanine Aminotransferase (ALT/SGPT) 24 0-55 U/L Alkaline Phosphatase 87 40-136 U/L Total Creatine Kinase 447 H 30-200 U/L Creatine Kinase MB 1.8 <6.6 NG/ML Myoglobin 90.7 10.0-92.0 NG/ML C-Reactive Protein High Sensitivity 6.98 H 0.00-0.50 MG/DL B-Type Natriuretic Peptide 20.2 <100.0 PG/ML Total Protein 7.1 6.4-8.2 GM/DL Albumin 4.3 3.2-4.5 GM/DL Lipase 19 8-78 U/L Urine Opiates Screen NEGATIVE NEGATIVE Urine Oxycodone Screen NEGATIVE NEGATIVE Urine Methadone Screen NEGATIVE NEGATIVE Urine Propoxyphene Screen NEGATIVE NEGATIVE Urine Barbiturates Screen NEGATIVE NEGATIVE Ur Tricyclic Antidepressants Screen NEGATIVE NEGATIVE Urine Phencyclidine Screen NEGATIVE NEGATIVE Urine Amphetamines Screen NEGATIVE NEGATIVE Urine Methamphetamines Screen NEGATIVE NEGATIVE Urine Benzodiazepines Screen NEGATIVE NEGATIVE Urine Cocaine Screen NEGATIVE NEGATIVE Urine Cannabinoids Screen NEGATIVE NEGATIVE My Orders Orders - POPPY,SHANIA K DO Influenza A And B By Pcr (07/21/21 23:39) Covid 19 Inhouse Test (07/21/21 23:39) Chest 1 View, Ap/Pa Only (07/22/21 00:05) Ed Iv/Invasive Line Start (07/22/21 00:48) Monitor-Rhythm Ecg Trace Only (07/22/21 00:48) BNP (07/22/21 00:48) Cbc With Automated Diff (07/22/21 00:48) Comprehensive Metabolic Panel (07/22/21 00:48) Creatine Kinase (07/22/21 00:48) Creatine Kinase Mb (07/22/21:48) Hs C Reactive Protein (07/22/21:48) Fibrin Degradation Products (07/22/21 00:48) Drug Screen Stat (Urine) (07/22/21 00:48) Lactic Acid Analyzer (07/22/21:48) Lipase (07/22/21:48) Magnesium (07/22/21:48) Protime With Inr (07/22/21 00:48) Partial Thromboplastin Time (07/22/21 00:48) Ua Culture If Indicated (07/22/21 00:48) Blood Culture (07/22/21 00:48) Erythrocyte Sedimentation Rate (07/22/21 00:48) Myoglobin Serum (07/22/21 00:48) Sputum Culture (07/22/21 00:48) Urine Culture (07/22/21 00:48) Ed Iv/Invasive Line Start (07/22/21 00:48) Vital Signs Adult Sepsis Patie Q15M (07/22/21 00:48) Remove Rings In Anticipation O (07/22/21 00:48) Ed Iv/Invasive Line Start (07/22/21 00:48) Lactated Ringers (Lr 1000 Ml Iv Solution (07/22/21 01:00) Covid 19 Inhouse Test (07/22/21 01:03) Ct Angio Chest W (07/22/21 01:52) Iohexol Injection (Omnipaque 350 Mg/Ml 1 (07/22/21 02:45) Received Contrast (Hold Metformin- Contr (07/22/21 02:45) Sodium Chloride Flush (Catheter Flush Sy (07/22/21 02:45) Ns (Ivpb) (Sodium Chloride 0.9% Ivpb Bag (07/22/21 02:45) Methylprednisolone Sod Succ (Solu-Medrol (07/22/21 03:00) O2 (07/22/21 02:55) Ceftriaxone (Rocephin) (07/22/21 03:00) Azithromycin Injection (Zithromax Inject (07/22/21 03:00) Medications Given in ED Current Medications Medications Dose Ordered Sig/Ryan Route Start Time Stop Time Status Last Admin Dose Admin Azithromycin 500 mg/Sodium Chloride 250 ml @ 250 mls/hr ONCE ONCE IV 07/22/21 03:00 07/22/21 03:59 DC 07/22/21 03:10 250 MLS/HR Ceftriaxone Sodium 1000 mg/ Sterile Water 10 ml @ 200 mls/hr ONCE ONCE IV 07/22/21 03:00 07/22/21 03:02 DC 07/22/21 03:10 200 MLS/HR Iohexol 100 ml ONCE ONCE IV 07/22/21 02:45 07/22/21 02:46 DC 07/22/21 02:43 85 ML Lactated Ringer's 1,000 ml @ 0 mls/hr Q0M ONCE IV 07/22/21 01:00 07/22/21 01:01 DC 07/22/21 01:00 1,000 MLS/HR Methylprednisolone Sodium Succinate 125 mg ONCE ONCE IVP 07/22/21 03:00 07/22/21 03:01 DC 07/22/21 03:10 125 MG Sodium Chloride 10 ml NEEDED PRN IV 07/22/21 02:45 07/22/21 02:43 10 ML Sodium Chloride 100 ml ONCE ONCE IV 07/22/21 02:45 07/22/21 02:46 DC 07/22/21 02:43 80 ML Vital Signs/I&O 07/21/21 07/21/21 23:36 23:37 Temp 37.2 Pulse 98 Resp 20 B/P (MAP) 123/81 (95) Pulse Ox 96 O2 Delivery Room Air Room Air Capillary Refill : Less Than 3 Seconds Blood Pressure Mean: 95 Progress Note : Progress Note PLACED IN ISOLATION ROOM PPE WORN AT ALL TIMES COVID-19 TESTING PERFORMED GIVEN IV FLUIDS GIVEN STEROIDS O2 SATS 90-92%, PLACED ON O2 AT 2L/NC WITH O2 SATS UP TO 95%\\ PT HAD NO COMPLAINTS FOR ENTIRE ER STAY 0400--PT WANTING TO LEAVE, CT REPORT IS STILL PENDING--MARKED DELAY IN OBTAINING CT REPORT Diagnostic Imaging Comments CXR--? RLL INFILTRATE ? --PENDING RADIOLOGIST REVIEW CT CHEST ANGIOGRAM-- Departure Impression Primary Impression: Person under investigation for COVID-19 Additional Impressions: Sepsis COPD (chronic obstructive pulmonary disease) Heavy smoker Bronchitis Disposition: 01 HOME, SELF-CARE Condition: Stable Departure-Patient Inst. Decision time for Depature: 04:43 Referrals: [facility] (PCP/Family) Primary Care Physician Patient Instructions: Acute Bronchitis, Adult (DC), Sepsis in Adults, Chronic Obstructive Pulmonary Disease (COPD), Including Emphysema, COVID-19 Overview, Preventing the Spread of an Infectious Disease Add. Discharge Instructions: LOTS OF CLEAR LIQUIDS TYLENOL 1 GRAM/ MOTRIN 800 MG 4 TIMES A DAY FOR PAIN OR FEVER OVER 101 OVER THE COUNTER MUCINEX DM FOR COUGH USE YOUR INHALERS PRESCRIBED FOLLOW UP WITH [facility] IN 2-3 DAYS FOR FURTHER CARE--YOU MAY NEED TO BE RE- TESTED FOR COVID-19 AT THAT TIME QUARANTINE YOURSELF AND ALL HOUSEHOLD MEMBERS UNTIL YOU ARE RECHECKED AND CLEARED BY . RETURN TO ER IF SYMPTOMS WORSEN All discharge instructions reviewed with patient and/or family. Voiced understanding. Scripts Dexamethasone (Decadron) 6 Mg Tablet 6 MG PO DAILY, #10 TAB Prov: SHANIA MCWILLIAMS DO 07/22/21 Doxycycline Hyclate (Doxycycline Hyclate) 100 Mg Tablet 100 MG PO BID, #20 TAB 0 Refills Prov: SHANIA MCWILLIAMS DO 07/22/21 SHANIA MCWILLIAMS DO Jul 22, 2021 01:25
[2021-07-22 01:38] LABS: ALBUMIN 4.3 GM/DL (3.2-4.5)
[2021-07-22 01:39] LABS: POTASSIUM 3.6 MMOL/L (3.6-5.0)
[2021-07-22 01:40] LABS: CALCIUM 9.5 MG/DL (8.5-10.1); FIBRIN DEGRADATION PRODUCTS 1.1 UG/ML (0.00-0.49); INR 0.9 (0.8-1.4); PROTHROMBIN TIME PATIENT 12.8 SEC (12.2-14.7)
[2021-07-22 01:41] LABS: TOTAL PROTEIN 7.1 GM/DL (6.4-8.2)
[2021-07-22 01:43] LABS: BILIRUBIN,TOTAL 0.6 MG/DL (0.1-1.0)
[2021-07-22 01:44] LABS: ERYTHROCYTE SEDIMENTATION RATE 9 MM/HR (0-30)
[2021-07-22 01:45] LABS: BACTERIA,URINE NEGATIVE /HPF; CREATININE SERUM 0.84 MG/DL (0.60-1.30)
[2021-07-22 01:52] LABS: AMPHETAMINE SCREEN, URINE NEGATIVE (NEGATIVE); BARBITURATE SCREEN URINE NEGATIVE (NEGATIVE); BENZODIAZEPINES SCREEN URINE NEGATIVE (NEGATIVE); CANNABINOID SCREEN, URINE NEGATIVE (NEGATIVE); COCAINE SCREEN URINE NEGATIVE (NEGATIVE); METHADONE STAT NEGATIVE (NEGATIVE); METHAMPHETAMINE SCREEN URINE S NEGATIVE (NEGATIVE); OPIATE SCREEN URINE NEGATIVE (NEGATIVE); OXYCODONE STAT NEGATIVE (NEGATIVE); PROPOXYPHENE STAT NEGATIVE (NEGATIVE); TRICYCLIC ANTIDEPRESSANTS SCRE NEGATIVE (NEGATIVE)
[2021-07-22 01:56] LABS: CREATINE KINASE MB 1.8 NG/ML (<6.6)
[2021-07-22] MEDS ORDERED: HOLD METFORMIN - RECEIVED CONTRAST 20 ML VIAL IV SCH (02:45)
[2021-07-22] MEDS ORDERED: NS 100 ML (IVPB) BAG IV ONE (02:45)
[2021-07-22] MEDS ORDERED: IOHEXOL 350 MG/ML 100 ML (OMNIPAQUE 350) VIAL IV ONE (02:45)
[2021-07-22] MEDS ORDERED: CATHETER FLUSH 10 ML SYR IV PRN (02:45)
[2021-07-22] MEDS ORDERED: AZITHROMYCIN INJECTION 500 MG in NS (IVPB) 250 ML IV ONE (03:00)
[2021-07-22] MEDS ORDERED: cefTRIAXone 1,000 MG in WATER (STERILE) FOR INJECTION 10 ML IV ONE (03:00)
[2021-07-22] MEDS ORDERED: methylPREDNISolone 125 MG (Solu-MEDROL) VIAL IVP ONE (03:00)
[2021-07-22 04:45] VITALS: BP 126/82
[2021-07-22] MEDS ORDERED: DEXA6TAB6 PO (04:45)
[2021-07-22] MEDS ORDERED: DOXY100T2 PO (04:45)
--- NOTE | 2021-07-22 05:33 | Diagnostic Imaging Report ---
PROCEDURE: CT angiography of the chest with contrast. TECHNIQUE: Multiple contiguous axial images were obtained through the chest after uneventful bolus administration of intravenous contrast. 3D reconstructed CTA MIP acquisitions were also performed. Auto Exposure Controls were utilized during the CT exam to meet ALARA standards for radiation dose reduction. INDICATION: Fever, body pain, cough, congestion. FINDINGS: There are no intraluminal pulmonary arterial filling defects. There is no pulmonary arterial embolus. Thoracic aorta is patent and nonacute. No pleural or pericardial effusion. There is no pneumothorax. There is air trapping with largely apical paraseptal emphysema. Some paraseptal cystic changes inferolateral right upper lobe subpleural unchanged from the comparison of July 2019. No thoracic adenopathy. No acute chest wall pathology with old healed right rib deformities chronic. The visualized upper abdomen nonacute. IMPRESSION: 1. Negative for PE or acute aortic disease, emphysematous changes with areas of biapical and right lateral subpleural paraseptal emphysema and zones of scarring chronic. No acute appearing abnormality or change. Dictated by: Dictated on workstation # [id number]
--- NOTE | 2021-07-22 06:49 | Diagnostic Imaging Report ---
EXAM: CHEST 1 VIEW, AP/PA ONLY INDICATION: Cough. Fever. COMPARISON: Chest radiograph 06/26/2020. FINDINGS: Normal heart size and central pulmonary vascularity. Mild atelectasis or infiltrate right lung base. No pleural effusion or pneumothorax. Multiple chronic right rib fractures. IMPRESSION: Mild atelectasis or infiltrate in the right lung base. Chest otherwise stable. Dictated by: Dictated on workstation # [id number]
== END 2021-07-22 04:45 | disposition home or self-care (01) ==
LOC: EDUNIT# 22:41 → ER 22:43
DX: A41.9 Sepsis, unspecified organism (principal); J44.9 Chronic obstructive pulmonary disease, unspecified; J40 Bronchitis, not specified as acute or chronic; I10 Essential (primary) hypertension; F17.210 Nicotine dependence, cigarettes, uncomplicated; Z87.820 Personal history of traumatic brain injury; Z20.822 Contact with and (suspected) exposure to COVID-19; Z79.899 Other long term (current) drug therapy
CPT/HCPCS: 36415; 71045; 71275; 80053; 80306; 81000; 82550; 82553; 83605; 83690; 83735; 83874; 83880; 85025; 85379; 85610; 85652; 85730; 86141; 87040; 87088; 87636; 93041

== ENCOUNTER 2023-05-19 05:37 | Outpatient (CLI) | payer MEDICAID ==
[~2023-05-19] VITALS: Ht 188 cm; Wt 82.0 kg
[~2023-05-19 05:37] MED LIST changes: +CYCL10TA25 PO; -CYCL10TA9 PO; +DEXA6TAB6 PO; +DOXY100T2 PO
[2023-05-19] MEDS ORDERED: AMLO-251 PO (13:51)
[2023-05-19] MEDS ORDERED: BUDE10.26 IH (13:51)
[2023-05-19] MEDS ORDERED: PANT40TA52 PO (13:51)
[2023-05-19] MEDS ORDERED: LOSA50TA63 PO (13:51)
[2023-05-19] MEDS ORDERED: MONT-40 PO (13:51)
[2023-05-19] MEDS ORDERED: ATOR20TA66 PO (13:51)
[2023-05-19] MEDS ORDERED: RT-ALBUINH INH (13:51)
[2023-05-19] MEDS ORDERED: ASPI-1238 PO (13:51)
== END 2023-05-19 14:00 | disposition home or self-care (01) ==
LOC: PREOP 05:37
PROVIDERS: ATTEND Surgery
DX: Z01.818 Encounter for other preprocedural examination (principal)

== ENCOUNTER 2023-06-01 11:03 | Day surgery (SDC) | payer MEDICAID ==
[~2023-06-01] VITALS: Ht 188 cm; Wt 82.0 kg
[2023-06-01] VITALS (7 sets, daily range): BP systolic 77–113; BP diastolic 48–79
[~2023-06-01 11:03] MED LIST changes: +AMLO-251 PO; +ASPI-1238 PO; +ATOR20TA66 PO; +BUDE10.26 IH; +LOSA50TA63 PO; +MONT-40 PO; +PANT40TA52 PO; +RT-ALBUINH INH
[2023-06-01] MEDS ORDERED: LACTATED RINGERS 1,000 ML IV STA (11:13)
--- NOTE | 2023-06-01 11:17 | Progress Note-Pre Operative ---
Pre-Operative Progress Note Date H&P Reviewed: Jun 01, 2023 Time H&P Reviewed: 11:59 History & Physical: H&P Reviewed, Patient Examed, No changes noted Pre-Operative Diagnosis: screening colonoscopy PIERRE CUEVAS DO Jun 01, 2023 11:17
[2023-06-01] MEDS ORDERED: PROPOFOL INJECTION 50 ML IV ONE ×2 (13:25→13:59)
[2023-06-01] MEDS ORDERED: MIDAZOLAM INJ 2 MG/2 ML VIAL ONE (13:25)
--- NOTE | 2023-06-01 14:01 | Progress Note-Post Operative ---
Post-Operative Progess Note Surgeon (s)/Rouge Presser (s) Surgeon PIERRE CUEVAS DO Rouge Presser: none Pre-Operative Diagnosis screening colonoscopy Post-Operative Diagnosis colon polyp Procedure & Operative Findings Date of Procedure 06/01/23 Procedure Performed/Findings colonoscopy with cold biopsy polypectomy x1 Anesthesia Type per RADIO PERFORMER Estimated Blood Loss Estimated blood loss (mL): none Specimens/Packing Specimens Removed sigmoid polyp PIERRE CUEVAS DO Jun 01, 2023 14:01
--- NOTE | 2023-06-01 14:03 | Discharge Inst-Simple/Standard ---
Discharge Inst-Standard Patient Instructions/Follow Up Plan of Care/Instructions/FU: annamarie 2 weeks Activity as Tolerated: Yes Discharge Diet: Regular Diet PIERRE CUEVAS DO Jun 01, 2023 14:03
--- NOTE | 2023-06-01 14:13 | Anesthesia-General Post-Op ---
MAC Patient Condition Mental Status/LOC: Same as Preop Cardiovascular: Satisfactory Nausea/Vomiting: Absent Respiratory: Satisfactory Pain: Controlled Complications: Absent Post Op Complications Complications None Follow Up Care/Instructions Patient Instructions None needed. Anesthesiology Discharge Order Discharge Order Patient is doing well, no complaints, stable vital signs, no apparent adverse anesthesia problems. No complications reported per nursing. JULIO AU CRNA Jun 01, 2023 14:13
--- NOTE | 2023-06-01 20:38 | OPERATIVE REPORT ---
DATE OF SERVICE: 06/01/2023 PREOPERATIVE DIAGNOSIS: Screening colonoscopy. POSTOPERATIVE DIAGNOSIS: Sigmoid colon polyp. PROCEDURE: Colonoscopy with cold biopsy polypectomy. SURGEON: Pierre León DO ANESTHESIA: Per NATURAL RESOURCE OFFICER. ESTIMATED BLOOD LOSS: None. COMPLICATIONS: None. INDICATIONS: The patient is a 53-year-old male, needing screening colonoscopy. He understands risks and benefits of procedure and wished to proceed. Consent was signed in chart. DESCRIPTION OF PROCEDURE: The patient was taken to endoscopy suite, placed in left lateral recumbent position. Timeout was performed. Digital rectal exam was performed. No palpable polyps, masses or ulcerations. Scope was inserted in the rectum, advanced all the way to the cecum with minimal difficulty. Prep was adequate with irrigation and suction. Scope was slowly retracted back. No polyps, masses or ulcerations in the cecum, ascending, transverse and descending colon. In sigmoid colon, very small polyp, which cold biopsy polypectomy was performed. Scope was then continuously retracted back. No polyps, masses or ulcerations in the remainder of the sigmoid and rectum. Scope was retroflexed noting no other pathology. Scope was returned to its normal position, slowly withdrawn until completely removed. The patient tolerated the procedure well without any complications, taken to recovery room in stable condition. RECOMMENDATIONS: The patient will need repeat colonoscopy in 5 years. He will follow up on pathology in 2 weeks. Job ID: [id number] DocumentID: [id number] Dictated Date: 06/01/2023 14:00:52 Fresh Food Manager Date: 06/01/2023 20:37:00 Dictated By: PIERRE LEÓN DO
== END 2023-06-01 14:54 | disposition home or self-care (01) ==
LOC: ENDO 11:03
PROVIDERS: ATTEND Surgery
DX: Z12.11 Encounter for screening for malignant neoplasm of colon (principal); K63.5 Polyp of colon; K76.9 Liver disease, unspecified; F17.210 Nicotine dependence, cigarettes, uncomplicated; Z80.0 Family history of malignant neoplasm of digestive organs
CPT/HCPCS: 88305

== ENCOUNTER → 2023-09-07 | Outpatient (CLI) | payer MEDICAID | LOC: CARD 11:38 | PROVIDERS: ATTEND Internal Medicine Cardiovascular Disease | DX: I11.9 Hypertensive heart disease without heart failure (principal) | CPT/HCPCS: 93306 ==

== ENCOUNTER → 2023-09-22 | Outpatient (CLI) | payer MEDICAID ==
[~2023-09-22] MED LIST changes: +CATHETER FLUSH 10 ML SYR IVP PRN; +REGADENOSON 0.4 MG/5 ML SYR IV ONE
[2023-09-22 13:15] VITALS: BP 132/93
--- NOTE | 2023-09-22 15:07 | Cardiology Stress Test Report ---
Stress Test Report Date of Procedure/Referring: Date of Procedure: Sep 22, 2023 [facility] Admitting Physician Admitting Physician: Attending Physician: Evette Millard MD Baseline Heart Rate: 75 Baseline Blood Pressure: Blood Pressure Systolic: 132 Blood Pressure Diastolic: 93 Baseline Vitals Vital Signs Date Time Temp Pulse Resp B/P (MAP) Pulse Ox O2 Delivery O2 Flow Rate FiO2 09/22/23 13:15 75 132/93 (106) 97 Room Air Baseline EKG: Baseline EKG: NSR Summary After explaining the procedure to the patient, he signed a consent and then brought to the stress nuclear laboratory. Patient received 0.4 mg Lexiscan for stress test, ECG, heart rate and blood pressure were monitored continuously. Resting and stress dose of radio tracer were injected, imaging was acquired and reviewed in short axis, horizontal long axis and vertical long axis views. TID: 1.18 SSS: 3 SDS: 3 EF: 52 Patient tolerated Lexiscan well Motion artifact affecting the quality of the images mild decrease uptake involving the apical portion of the anterolateral wall with mild reversibility, overall no significant ischemia or infarction on SPECT images Normal left ventricular size, ejection fraction 52% Copy Copies To 1: [facility]EVETTE PRESSLEY MD Sep 22, 2023 15:07
== END ==
LOC: CARD 11:44
PROVIDERS: ATTEND Internal Medicine Cardiovascular Disease
DX: I10 Essential (primary) hypertension (principal); I25.10 Atherosclerotic heart disease of native coronary artery without angina pectoris
CPT/HCPCS: 78452; 93017; A9502